=== PATIENT | male | born 1955 | race Caucasian/White ===

== ENCOUNTER 2020-09-17 10:16 | Outpatient (REF) | payer MEDICARE, OTHER, SELFPAY ==
[2020-09-17 12:31] LABS: Anion Gap 15 (12-20); Blood Urea Nitrogen 12 mg/dL (9-16); Carbon Dioxide 27 mmol/L (22-29); Chloride 100 mmol/L (96-108); Cholesterol 135 mg/dL; Estimated Glomerular Filt Rate > 60; Glucose Random 142 mg/dL (60-115); HDL Cholesterol 53 mg/dL; LDL Cholesterol Calculated 69 mg/dl; Potassium 4.8 mmol/l (3.3-5.1); Sodium 137 mmol/L (135-145); Triglycerides 67 mg/dL
[2020-09-17 12:42] LABS: Estimated Average Glucose 177 mg/dL; Hemoglobin A1c % 7.8 %
[2020-09-17 12:44] LABS: Alanine Aminotransferase 17 U/L (0-40); Albumin Level 4.3 g/dL (3.5-5.0); Alkaline Phosphatase 84 U/L (39-117); Aspartate Amino Transferase 15 U/L (5-37); Bilirubin Direct 0.3 mg/dL (0.0-0.5); Bilirubin Total 0.6 mg/dL (0.0-1.0); Cholesterol 133 mg/dL; HDL Cholesterol 53 mg/dL; LDL Cholesterol Calculated 67 mg/dl; Triglycerides 66 mg/dL
[2020-09-17 12:50] LABS: Microalbum/Creatinine Ratio Ur 5.7 ug/mg cr
== END 2020-09-17 10:17 | disposition home or self-care (01) ==
LOC: HO.HMGCLDS 10:16
PROVIDERS: PCP Nurse Practitioner Family; Visit Provider Internal Medicine
DX: E11.9 Type 2 diabetes mellitus without complications (principal); Z95.1 Presence of aortocoronary bypass graft
CPT/HCPCS: 80048; 80061; 80076; 82043; 83036

== ENCOUNTER → 2020-09-29 08:31 | Outpatient (REF) | payer MEDICARE, OTHER, SELFPAY ==
--- NOTE | 2020-09-29 08:30 | CA_ITS ---
Transthoracic Echocardiogram Patient (Last, First, Middle): Bernard Rosenbaum M Gender: Male Date of : 1955 Age: 65 Procedure Date: 09/29/2020 Procedure Type: Transthoracic Echocardiogram Location: OP Height: 180.34 cm Weight: 100.7 kg BSA: 2.20 m2 Heart Rate: bpm BP: 118 / 60 mmHg Personnel Security Specialist: Referring MD: Melvin Johnson MD Apartment Maintenance: Igor Ramírez MD Symptoms: I21.4 NSTEMI Z95.1 S/P COR ART BYPASS GRAFT Study Quality: Fair ECG Rhythm: Sinus Conclusions: - 1. Normal LV systolic and diastolic function with LVEF of 55 60% 2. Normal cardiac valvular Doppler 3. Normal RV systolic pressure 4. No pericardial effusion Findings Left Ventricle Normal left ventricular size and systolic function. There is mildly increased left ventricular wall thickness. The visually estimated ejection fraction is between 55-60%. Regional wall motion abnormalities can not be excluded due to suboptimal endocardial definition. There is paradoxical septal motion consistent with post-operative status. Spectral Doppler is indicative of a normal filling pattern. Right Ventricle Normal right ventricular cavity size. Atria The left atrium is likely dilated. Interatrial shunt cannot be excluded. The right atrium is normal in size. Aortic Valve The aortic valve was not well visualized. There is no aortic valve stenosis. There is no aortic valve regurgitation. Mitral Valve Likely normal mitral valve structure and function. There is trace mitral valve regurgitation. There is no mitral valve stenosis. Pulmonic Valve The pulmonic valve was not well visualized. Tricuspid Valve Likely normal tricuspid valve structure and function. There is trace tricuspid valve regurgitation. The right ventricular systolic pressure is normal. The right ventricular systolic pressure is 15 mmHg. Normal right atrial pressure. There is no evidence of pulmonary hypertension. Great Vessels All visible segments of the aorta are normal in size. The pulmonary artery was not well visualized. Venous The inferior vena cava is normal in size and collapses greater than 50% with inspiration. Pericardium/Pleural There is no evidence of pericardial effusion. Prior Study Comparison No significant change compared to prior study dated: 06/26/2020. Recommendations, Care & Conclusions Recommend contrast in the future to improve endocardial definition. Measurements 2D Linear Measurements IVSd: 1.27 0.6-0.9/0.6-1.0 cm LVIDd: 4.46 3.9-5.3/4.2-5.9 cm LVIDd Index: 2.03 2.4-3.2/2.2-3.1 cm/m2 LVIDs: 2.93 2.0-3.6 cm LVPWd: 1.21 0.7-1.1 cm Ao Root: 3.40 2.1-3.5 cm LA Diam: 3.90 2.7-3.8/3.0-4.0 cm LAIDs Index: 1.77 1.5-2.3 cm/m2 LV Mass: 255.36 67-162/88-224 g LV Mass Index: 116.07 43-95/49-115 g/m2 LVOT Diam: 2.20 3.0+(-)1.3 cm 2D Systolic Function EF 4C: 53.10 >55% EF 2C: 50.10 >55% EF BiP: 51.00 >55% Mitral Valve MV Pk E: 0.69 MV PK A: 0.66 MV Decel Time: 239.00 E/A: 1.00 E'Lateral: 9.57 E'Medial: 6.38 E/E' Med: 10.80 E/E' Lat: 7.20 PHT: 70.00 MVA PHT: 3.14 Decel Guthrie: 2.88 Aortic Valve AoV Pk Zac: 1.06 AoV Mn Zac: 0.71 AoV VTI: 0.31 AoV Pk Grad: 4.00 Aov Mn Grad: 2.00 LIANE Cont.VTI: 2.92 LVOT LVOT Pk Zac: 0.89 LVOT Mn Zac: 0.56 LVOT VTI: 0.24 LVOT Pk Grad: 3.00 LVOT Mn Grad: 2.00 LVOT Diam: 2.20 LVOT Area: 3.80 Diastolic Function MV Pk E: 0.69 MV Pk A: 0.66 E/A: 1.00 E'Medial: 6.38 E/E' Med: 10.80 E' Laterial: 9.57 E/E' Lat: 7.20 Tricuspid Valve TR Pk Zac: 1.76 TR Pk Grad: 12.00 RA Press: 3.00 RVSP: 15.00 Great Vessels Aorta Ao Root-2D: 3.40 2.0-3.7 cm Pulmonary Valve PV Pk Zac: 0.95 Peak PV Grad: 4.00 Updated in Other Vendor System with Status of Final Igor Ramírez MD electronically signed on 09/30/2020 9:40:06 AM with status of Final
== END ==
LOC: HO.CARD 08:31
PROVIDERS: PCP Nurse Practitioner Family; Visit Provider Internal Medicine
DX: I21.4 Non-ST elevation (NSTEMI) myocardial infarction (principal); Z95.1 Presence of aortocoronary bypass graft
CPT/HCPCS: 93306

== ENCOUNTER → 2020-10-12 09:49 | Outpatient (BNVA) | payer MEDICARE, OTHER, SELFPAY | PROVIDERS: PCP Nurse Practitioner Family; Visit Provider Internal Medicine | DX: I25.10 Atherosclerotic heart disease of native coronary artery without angina pectoris (principal); I21.4 Non-ST elevation (NSTEMI) myocardial infarction; I10 Essential (primary) hypertension; E11.8 Type 2 diabetes mellitus with unspecified complications; E78.5 Hyperlipidemia, unspecified; Z95.1 Presence of aortocoronary bypass graft | CPT/HCPCS: 99212 ==

== ENCOUNTER 2021-03-15 10:17 | Outpatient (REF) | payer MEDICARE, OTHER, SELFPAY ==
[2021-03-15 12:10] LABS: Alanine Aminotransferase 17 U/L (0-40); Albumin Level 4.3 g/dL (3.5-5.0); Alkaline Phosphatase 94 U/L (39-117); Anion Gap 15 (12-20); Aspartate Amino Transferase 15 U/L (5-37); Bilirubin Total 0.9 mg/dL (0.0-1.0); Blood Urea Nitrogen 15 mg/dL (9-16); Calcium 9.6 mg/dL (8.4-10.2); Carbon Dioxide 25 mmol/L (22-29); Chloride 103 mmol/L (96-108); Cholesterol 138 mg/dL; Estimated Glomerular Filt Rate > 60; Glucose Fasting 215 mg/dL (60-99); HDL Cholesterol 49 mg/dL; LDL Cholesterol Calculated 76 mg/dl; Sodium 138 mmol/L (135-145); Total Protein 7.1 g/dL (6.5-8.0); Triglycerides 68 mg/dL
[2021-03-15 12:12] LABS: Estimated Average Glucose 266 mg/dL; Hemoglobin A1c % 10.9 %
[2021-03-15 12:25] LABS: TSH reflex Free T4 3.32 uIU/mL (0.32-4.0)
== END 2021-03-15 10:18 | disposition home or self-care (01) ==
LOC: HO.HMGCLDS 10:17
PROVIDERS: PCP Nurse Practitioner Family; Visit Provider Nurse Practitioner Family
DX: E11.8 Type 2 diabetes mellitus with unspecified complications (principal)
CPT/HCPCS: 36415; 80053; 80061; 83036; 84443

== ENCOUNTER → 2021-04-19 09:51 | Outpatient (BNVA) | payer MEDICARE, OTHER, SELFPAY | PROVIDERS: PCP Nurse Practitioner Family; Referring Provider Nurse Practitioner Family; Visit Provider Internal Medicine | DX: I25.10 Atherosclerotic heart disease of native coronary artery without angina pectoris (principal); I21.4 Non-ST elevation (NSTEMI) myocardial infarction; I10 Essential (primary) hypertension; E78.5 Hyperlipidemia, unspecified; E11.8 Type 2 diabetes mellitus with unspecified complications; Z95.1 Presence of aortocoronary bypass graft | CPT/HCPCS: 93005; 99212 ==

== ENCOUNTER 2021-06-15 10:06 | Outpatient (REF) | payer MEDICARE, OTHER, SELFPAY ==
[2021-06-15 11:42] LABS: Estimated Average Glucose 249 mg/dL; Hemoglobin A1c % 10.3 %
[2021-06-15 11:54] LABS: Alanine Aminotransferase 17 U/L (0-40); Albumin Level 4.2 g/dL (3.5-5.0); Alkaline Phosphatase 83 U/L (39-117); Anion Gap 14 (12-20); Aspartate Amino Transferase 13 U/L (5-37); Bilirubin Total 0.9 mg/dL (0.0-1.0); Blood Urea Nitrogen 14 mg/dL (9-16); Calcium 9.3 mg/dL (8.4-10.2); Carbon Dioxide 24 mmol/L (22-29); Chloride 104 mmol/L (96-108); Estimated Glomerular Filt Rate > 60; Glucose Random 217 mg/dL (60-115); Potassium 4.7 mmol/L (3.3-5.1); Sodium 137 mmol/L (135-145); Total Protein 6.6 g/dL (6.5-8.0)
[2021-06-15 12:18] LABS: TSH reflex Free T4 3.01 uIU/mL (0.32-4.0)
== END 2021-06-15 10:07 | disposition home or self-care (01) ==
LOC: HO.HMGCLDS 10:06
PROVIDERS: PCP Nurse Practitioner Family; Visit Provider Nurse Practitioner Family
DX: Z12.5 Encounter for screening for malignant neoplasm of prostate (principal); E03.9 Hypothyroidism, unspecified; E11.9 Type 2 diabetes mellitus without complications
CPT/HCPCS: 36415; 80053; 83036; 84153; 84443

== ENCOUNTER → 2021-10-04 15:03 | Outpatient (BNVA) | payer MEDICARE, OTHER, SELFPAY | PROVIDERS: PCP Nurse Practitioner Family; Referring Provider Nurse Practitioner Family; Visit Provider Internal Medicine | DX: I25.10 Atherosclerotic heart disease of native coronary artery without angina pectoris (principal); I21.4 Non-ST elevation (NSTEMI) myocardial infarction; I10 Essential (primary) hypertension; E78.5 Hyperlipidemia, unspecified; E11.8 Type 2 diabetes mellitus with unspecified complications; Z95.1 Presence of aortocoronary bypass graft | CPT/HCPCS: 99212 ==

== ENCOUNTER 2021-10-19 09:32 | Outpatient (REF) | payer MEDICARE, OTHER, SELFPAY ==
[2021-10-19 11:57] LABS: Appearance Urine CLEAR; Color Urine YELLOW; Glucose Urine UA NEG (NEG); Leukocyte Esterase Urine NEG (NEG); Nitrite Urine NEG (NEG); Specific Gravity - Urine 1.025 (1.005-1.025); Urine Blood NEG (NEG); Urine Ketones NEG (NEG); Urine Protein NEG (NEG-TRACE)
[2021-10-19 12:29] LABS: Squamous Epithelial Cell Urine 2+ /LPF; WBC Urine 0-2 /HPF (0-4)
[2021-10-19 12:30] LABS: Bacteria Urine TRACE /LPF; Mucus Urine 1+ /LPF
== END 2021-10-19 09:33 | disposition home or self-care (01) ==
LOC: HO.HMGCLDS 09:32
PROVIDERS: PCP Nurse Practitioner Family; Visit Provider Nurse Practitioner Family
DX: Z87.442 Personal history of urinary calculi (principal)
CPT/HCPCS: 81001; 87086

== ENCOUNTER 2021-11-11 11:26 | Outpatient (REF) | payer MEDICARE, OTHER, SELFPAY ==
--- NOTE | ~2021-11-11 | US_ITS ---
EXAMINATION: US RETROPERITONEAL LIMITED (RENAL ONLY) CLINICAL INFORMATION: History of kidney stones.. COMPARISON: April 04, 2019 TECHNIQUE: Bilateral renal ultrasound. FINDINGS: RIGHT KIDNEY: 12.0 x 5.6 x 6.6 cm (SAG x AP x TRV). The kidney is normal in size, contour, and echogenicity. Renal cortical thickness is normal. No focal parenchymal masses are identified. Within the lower pole there is a echogenic focus measuring 3 mm in largest dimension representing a nonobstructive calculus. No hydronephrosis. LEFT KIDNEY: 12.2 x 5.9 x 6.9 cm (SAG x AP x TRV). The kidney is normal in size, contour, and echogenicity. Renal cortical thickness is normal. No hydronephrosis. Within the upper pole there is a 1.9 x 1.6 x 1.5 cm cyst. Within the lower pole there is a 3 mm echogenic focus representing a nonobstructive calculus. Within the upper pole there is a 4 mm echogenic focus representing a nonobstructive calculus. US/US renal BI IMPRESSION: Bilateral nephrolithiasis without evidence of hydronephrosis. 1.9 cm left renal cyst..
== END 2021-11-11 11:27 | disposition home or self-care (01) ==
LOC: HO.HMGCX 11:26
PROVIDERS: PCP Nurse Practitioner Family; Visit Provider Nurse Practitioner Family
DX: R10.9 Unspecified abdominal pain (principal); Z87.442 Personal history of urinary calculi
CPT/HCPCS: 76775

== ENCOUNTER 2021-12-14 09:00 | Outpatient (REF) | payer MEDICARE, OTHER, SELFPAY ==
--- NOTE | ~2021-12-14 | US_ITS ---
EXAMINATION: US PELVIS LIMITED (BLADDER) CLINICAL INFORMATION: Personal history of urinary calculi. COMPARISON: Ultrasound renal 11/11/2021. TECHNIQUE: Real-time imaging of the bladder. FINDINGS: BLADDER: Well distended and normal. Bilateral ureteral jets are demonstrated. Prevoid bladder volume is 202 mL. Postvoid bladder volume is 39.1 mL. US/US bladder IMPRESSION: Small postvoid residual bladder volume. Normal bilateral ureteral jets seen.
[2021-12-14 11:53] LABS: Appearance Urine CLEAR; Color Urine YELLOW; Glucose Urine UA 100 MG/DL (NEG); Leukocyte Esterase Urine NEG (NEG); Nitrite Urine NEG (NEG); Urine Blood NEG (NEG); Urine Ketones NEG (NEG); Urine Protein NEG (NEG-TRACE)
[2021-12-14 12:03] LABS: Alanine Aminotransferase 18 U/L (0-40); Albumin Level 4.2 g/dL (3.5-5.0); Alkaline Phosphatase 109 U/L (39-117); Anion Gap 12 (12-20); Aspartate Amino Transferase 14 U/L (5-37); Blood Urea Nitrogen 12 mg/dL (9-16); Calcium 9.7 mg/dL (8.4-10.2); Carbon Dioxide 31 mmol/L (22-29); Chloride 99 mmol/L (96-108); Cholesterol 122 mg/dL; Estimated Glomerular Filt Rate > 60; Glucose Fasting 271 mg/dL (60-99); HDL Cholesterol 46 mg/dL; LDL Cholesterol Calculated 65 mg/dl; Potassium 5.1 mmol/L (3.3-5.1); Sodium 137 mmol/L (135-145); Total Protein 6.9 g/dL (6.5-8.0); Triglycerides 58 mg/dL
[2021-12-14 12:26] LABS: TSH reflex Free T4 3.33 uIU/mL (0.32-4.0)
== END 2021-12-14 09:01 | disposition home or self-care (01) ==
LOC: HO.HMGCX 09:00
PROVIDERS: PCP Nurse Practitioner Family; Visit Provider Nurse Practitioner Family
DX: R10.9 Unspecified abdominal pain (principal); E11.8 Type 2 diabetes mellitus with unspecified complications; I10 Essential (primary) hypertension; Z87.442 Personal history of urinary calculi
CPT/HCPCS: 36415; 76857; 80053; 80061; 81003; 84443

== ENCOUNTER → 2022-02-21 13:31 | Outpatient (BNVA) | payer MEDICARE, OTHER, SELFPAY | PROVIDERS: PCP Nurse Practitioner Family | DX: N28.1 Cyst of kidney, acquired (principal) | CPT/HCPCS: 99202 ==

== ENCOUNTER 2022-06-20 07:56 | Outpatient (REF) | payer MEDICARE, OTHER, SELFPAY ==
--- NOTE | ~2022-06-20 | US_ITS ---
EXAMINATION: US RETROPERITONEAL LIMITED (RENAL ONLY) CLINICAL INFORMATION: Cyst of kidney, acquired. COMPARISON: US pelvis limited (bladder) 12/14/2021. US retroperitoneal limited (renal only) 11/11/2021. CT abdomen and pelvis 04/04/2019. TECHNIQUE: Real-time imaging of the kidneys. FINDINGS: RIGHT KIDNEY: 11.1 x 5.6 x 5.6 cm (SAG x AP x TRV). The kidney is normal in size, contour, and echogenicity. Renal cortical thickness is normal. No focal parenchymal lesions or hydronephrosis. There is an echogenic nonobstructive stone in lower pole measuring 0.3 and 0.4 cm. LEFT KIDNEY: 11.1 x 6.0 x 5.2 cm (SAG x AP x TRV). The kidney is normal in size, contour, and echogenicity. Renal cortical thickness is normal. No hydronephrosis. There is anechoic cyst in the upper pole measuring 2.2 x 2.1 x 1.9 cm. There is a nonobstructive echogenic stone midpole measuring 0.4 cm and a lower pole measuring 0.5 cm and 0.4 cm. US/US renal BI IMPRESSION: Bilateral nonobstructive echogenic renal calculi. No hydronephrosis. Anechoic cyst upper pole measuring 2.2 cm.
== END 2022-06-20 07:57 | disposition home or self-care (01) ==
LOC: HO.US 07:56
DX: N28.1 Cyst of kidney, acquired (principal)
CPT/HCPCS: 76775

== ENCOUNTER 2022-07-29 14:58 | Observation (INO) | payer MEDICARE, OTHER, SELFPAY ==
--- NOTE | ~2022-07-29 | CT_ITS ---
EXAMINATION: CT HEAD WITHOUT CONTRAST CLINICAL INFORMATION: Headache. COMPARISON: None. TECHNIQUE: Contiguous axial imaging was performed from the skull base to vertex without intravenous administration of contrast. Coronal and sagittal reformatted images are performed at the CT scanner. [This CT examination was performed using dose optimization techniques as appropriate, variously including the following: *Automated exposure control *Adjustment of mA and/or kV according to patient size (this includes techniques or standardized protocols for targeted exams where dose is matched to indication/reason for exam; i.e. extremities or head) *Use of iterative reconstruction technique] DLP: 771 mGy-cm. FINDINGS: There is no evidence of acute intracranial hemorrhage or territorial infarction. No abnormal mass-effect or midline shift is seen. Merchant to white matter differentiation is well preserved. No extra-axial fluid collections are identified. There is generalized global volume loss. There is mild prominence of the ventricles and the sulci . There are vascular calcifications of the internal carotid arteries bilaterally. There is no osseous abnormality. The mastoid air cells and visualized portions of the paranasal sinuses are well-aerated. CT/CT head/brain wo IV con IMPRESSION: No acute intracranial pathology.
--- NOTE | ~2022-07-29 | MR_ITS ---
EXAMINATION: MR BRAIN WITHOUT CONTRAST CLINICAL INFORMATION: CVA COMPARISON: CTA head and neck 07/29/2022 TECHNIQUE: Multiplanar multisequence MR imaging of the brain was obtained without intravenous contrast. FINDINGS: There is no acute infarct on diffusion-weighted imaging. No extra-axial collection or mass effect/herniation. Patchy periventricular and deep white matter T2 FLAIR hyperintensities consistent with mild to moderate underlying microangiopathy. Chronic right basal ganglia and right cerebellar lacunar infarcts which demonstrate small chronic blood products. No other intracranial blood products on iron sensitive imaging No hydrocephalus. Mild generalized cerebral volume loss with commensurate sulcal and ventricular prominence. Slightly attenuated intradural left vertebral artery flow-void. The major flow voids at the skull base are otherwise preserved. The midline structures are normal. The cerebellar tonsils are normally positioned. The craniocervical junction is normal. Marrow signal is within normal limits. The visualized soft tissues are without significant abnormality. No signal abnormality within the paranasal sinuses or within the mastoid air cells. MR/MR head/brain wo con IMPRESSION: No acute infarct or other acute intracranial abnormality.
--- NOTE | ~2022-07-29 | CT_ITS ---
EXAMINATION: CT ANGIOGRAM HEAD CT ANGIOGRAM NECK CLINICAL INFORMATION: Reason for Exam left sided facial droop COMPARISON: Same day noncontrast head CT TECHNIQUE: Initial noncontrast supervisor enrobing imaging of the head and neck was performed. Comparison is made with noncontrast head CT from earlier today. Test bolus sequences followed by intravenous administration 70 mL of Omnipaque 350. Helical imaging was performed in the axial plane from the aortic arch to the skull vertex. Delayed postcontrast imaging of the head was also performed. The data was processed at the pathology laboratory technologist's workstation for generation of MIP sequences. Angled MIPs and volume rendered reformatted images were also generated at an offline 3D workstation. Stenoses are assessed in accordance with NASCET criteria unless otherwise indicated. DLP: 1584 mGy-cm This CT examination was performed using dose optimization techniques as appropriate, variously including the following: *Automated exposure control. *Adjustment of mA and/or kV according to patient size (this includes techniques or standardized protocols for targeted exams where dose is matched to indication/reason for exam; i.e. extremities or head). *Use of iterative reconstruction technique. FINDINGS: CT Head: There is no evidence of acute intracranial hemorrhage or edematous territorial infarction. A few foci of hypoattenuation in the periventricular and deep white matter are consistent with mild microangiopathy. Chronic lacunar infarcts in the right lentiform nucleus and right cerebellum. Merchant-white matter differentiation is preserved. The ventricles are normal in size and configuration. No evidence for obstructive hydrocephalus. No abnormal mass effect or midline shift. No extra-axial fluid collections. Prominent bifrontal extra-axial spaces. No pathologic intra-axial enhancement or regional oligemia. No acute soft tissue or osseous abnormalities. The mastoid air cells and paranasal sinuses are clear. CT Neck: The thyroid gland and remaining cervical soft tissues are within normal limits. Multilevel cervical spondylosis. CT Upper Chest: The visualized lung apices and upper mediastinum are within normal limits. Median sternotomy wires. Neck CTA: Aortic Arch: Normal contour and caliber. Classic 3 vessel branching pattern of the aortic arch. Great Vessel Origins: No significant stenosis of the branch origins. Right Common Carotid Artery: No focal stenosis or occlusion. Cervical Right Internal Carotid Artery: Calcific atherosclerotic disease of the carotid bulb and proximal internal carotid artery causing less than 50% stenosis. Left Common Carotid Artery: No focal stenosis or occlusion. Cervical Left Internal Carotid Artery: Calcific atherosclerotic disease of the carotid bulb and proximal internal carotid artery causing less than 50% stenosis. There is moderate to severe burden of predominantly soft atherosclerotic plaque involving the distal cervical left ICA with approximately 70% stenosis at the junction of the cervical and petrous segments. Cervical Right Vertebral Artery: No focal stenosis or occlusion. Cervical Left Vertebral Artery: Moderate calcified atherosclerotic disease of the proximal intradural left without high-grade stenosis and absent opacification of the vessel just distal to a normal appearing left PICA takeoff. Brain CTA: Intracranial Internal Carotid Arteries: Calcific atherosclerotic disease of the intracranial internal carotid arteries without occlusion or flow-limiting stenosis. Right Anterior Cerebral Artery: Normal A1 segment. Normal opacification of the distal CARLOS segments. Left Anterior Cerebral Artery: Normal A1 segment. Normal opacification of the distal CARLOS segments. Anterior Communicating Artery: Normal. Right Middle Cerebral Artery: Normal M1 segment of the MCA without focal stenosis or occlusion. Normal arborization of the distal segments. Left Middle Cerebral Artery: Normal M1 segment of the MCA without focal stenosis or occlusion. Normal arborization of the distal segments. Right Vertebral Artery: Normal V4 segment. Left Vertebral Artery: Normal V4 segment. Basilar Artery: Normal without focal stenosis or occlusion. Normal appearance of the proximal superior cerebellar arteries. Right Posterior Cerebral Artery: Normal P1 segment. Normal opacification of the distal [employer] segments. Left Posterior Cerebral Artery: Normal P1 segment. Normal opacification of the distal [employer] segments. Normal opacification of the superior sagittal, straight, transverse, and sigmoid sinuses. CT/CT angio head neck IMPRESSION: 1. Age-indeterminate occlusion of the intradural left vertebral artery just distal to the left PICA takeoff. There is robust supply of the basilar artery and posterior circulation via a widely patent right vertebral artery. 2. Moderate to severe burden of lipid rich atherosclerotic plaque involving the distal cervical left ICA with approximately 70% stenosis of the vessel origin at the junction of the cervical and petrous segments.
[2022-07-29 15:01] VITALS: BP 178/92; PULSE 96; RESP 18; TEMP 37.2; O2SAT 98; BMI 31.8
--- NOTE | 2022-07-29 15:21 | ECG_ITS ---
Test Reason : NEURO SYMTOMS Blood Pressure : / mmHG Vent. Rate : 094 BPM Atrial Rate : 094 BPM P-R Int : 150 ms QRS Dur : 076 ms QT Int : 350 ms P-R-T Axes : 068 -31 091 degrees QTc Int : 437 ms Normal sinus rhythm Left axis deviation Nonspecific ST and T wave abnormality Abnormal ECG When compared with ECG of 16-JUN-2020 10:56, T wave inversion no longer evident in Anterolateral leads QT has shortened Referred By: Estela Zelaya Electronically Signed By:CISCO CRAIG
--- NOTE | 2022-07-29 15:29 | ED.NEUROSD ---
HPI - Neuro Symptoms/Deficit General Chief Complaint: Neuro Symptoms/Deficit Stated Complaint: L side facial weakness sent by urgent care Time Seen by Provider: 07/29/22 15:17 Source: patient Mode of arrival: ambulatory Limitations: no limitations History of Present Illness HPI Narrative: Patient is a 67 year old male presenting to the emergency department today with left sided head and neck pressure and possible left facial droop. Patient states that over the last week he has had left sided head and neck pressure and today when he was seen at the urgent care, the provider there was concerned about a stroke or bells palsy. Patient states that he was bit by a tick a year ago and was never tested or treated for Lyme. Patient states that he didn't notice any facial drooping but he did feel like spitting after brushing his teeth was much more difficult than usual. Patient denies any dizziness, lightheadedness, abdominal pain, nausea, vomiting, fever, chills, blurry vision, double vision, loss of vision, chest pain, difficulty breathing, shortness of breath, back pain, night sweats, pain with urination, increased urinary frequency, increased urinary urgency, blood in his urine or stool, syncope or a near syncopal episode, recent trauma or falls, bowel incontinence, bladder incontinence, bowel retention, bladder retention, or any other complaints at this time. Onset (ago): week(s) (1) Location: left face History of same: No Severity: mild Relieving factors: none Exacerbating factors: none Context: gradual onset On Anticoagulants: No Associated symptoms: denies other symptoms Treatments Prior to Arrival: none Related Data Home Medications Medication Instructions Recorded Confirmed aspirin 81 mg tablet,delayed 81 mg PO .COMPLEX 11/18/20 02/01/22 release nitroglycerin 0.4 mg sublingual mg sublingual PRN chest pain 11/18/20 02/01/22 tablet insulin aspart U-100 100 unit/mL subcut 02/21/22 (3 mL) subcutaneous pen (Novolog Flexpen U-100 Insulin aspart) Previous Rx's Medication Instructions Recorded blood sugar diagnostic (FreeStyle 1 strip miscellaneous BID for 03/18/21 Lite Strips) diabetes mellitus 30 days #60 strips flash glucose scanning reader #1 ea 09/15/21 (FreeStyle Ash 14 Day Delton) flash glucose sensor (FreeStyle #1 ea 09/15/21 Ash 14 Day Sensor kit) atorvastatin 80 mg tablet 80 mg PO DAILY 90 days #90 tabs 10/25/21 metoprolol tartrate 50 mg tablet 50 mg PO BID #180 tabs 11/01/21 pen needle, diabetic 31 gauge x #100 ea 01/01/22 3/16 insulin degludec 200 unit/mL (3 24 unit (0.12 mL) subcut BID 30 01/19/22 mL) subcutaneous pen (Tresi days #7.2 mL FlexTouch U-200 insulin) lisinopril 5 mg tablet 5 mg PO DAILY 90 days #90 tabs 02/11/22 levothyroxine 75 mcg tablet 75 mcg PO DAILY #90 tabs 04/12/22 doxycycline hyclate 100 mg tablet 100 mg PO BID 21 days #42 tabs 07/29/22 prednisone 20 mg tablet 20 mg PO DAILY 12 days #26 tabs 07/29/22 Allergies Allergy/AdvReac Type Severity Reaction Status Date / Time Penicillins [PCN] Allergy Unknown RASH Verified 06/20/22 13:13 glipizide AdvReac Unknown Nausea/Loss Verified 06/20/22 13:13 of appetite metformin AdvReac Unknown GI upset Verified 06/20/22 13:13 Review of Systems Constitutional: Constitutional: Reports no additional constitutional complaints, Denies chills, Denies fever(s) and Denies night sweats Eyes: Eyes: Reports no additional eye complaints, Denies blurry vision, Denies change in vision, Denies diplopia, Denies eye discharge, Denies loss of vision and Denies eye pain ENT: Denies dizziness Cardiovascular: Cardiovascular: Reports no additional cardiovascular complaints, Denies chest pain, Denies lightheadedness, Denies Loss of Consciousness and Denies dyspnea Respiratory: Respiratory: Reports no additional respiratory complaints and Denies dyspnea Gastrointestinal: Gastrointestinal: Reports no additional gastrointestinal complaints, Denies abdominal pain, Denies melena, Denies hematochezia, Denies change in bowel habits and Denies change in stool character Genitourinary: Genitourinary: Reports no additional male genitourinary complaints, Denies hematuria, Denies oliguria, Denies difficulty urinating, Denies dysuria, Denies urinary frequency, Denies urinary hesitancy, Denies urinary incontinence and Denies urinary urgency Musculoskeletal: Musculoskeletal: Reports no additional musculoskeletal complaints, Denies numbness and Denies tingling Neurologic: Denies dizziness, Denies loss of vision, Denies numbness and Denies tingling Comments: left sided head pressure and neck pressure, difficulty spitting Psychiatric: Psychiatric: Reports no additional psychiatric complaints Endocrine: Endocrine: Reports no additional endocrine complaints Hematologic/Lymphatic: Hematologic/Lymphatic: Reports no additional hematologic/lymphatic complaints Allergic/Immunologic: Allergic/Immunologic: Reports no additional allergic/immunologic complaints PMFSH Past Medical History Attestation statement: The following information was validated with the patient. Source: old records reviewed Medical History Adult hypothyroidism Atherosclerotic cardiovascular disease Basal cell carcinoma HTN (hypertension) Non-ST elevation OR (NSTEMI) Other and unspecified hyperlipidemia Type 2 diabetes mellitus with unspecified complications Surgical History History of cardiac catheterization (~06/17/20) S/P CABG x 4 (~06/30/20) Family History Family History Father Stroke Substance use disorder Mother Breast cancer HTN (hypertension) Social History Social History Housing: House Patient Tobacco Use Status: Never used Tobacco e-Cigarette/Vaping Use: Never Used Advance Directives: No Advance Directives Information Provided: No service: No Current occupational status: retired Cognitive needs: No Hearing needs: No Vision needs: No Physical Exam Vital Signs: Vital Signs: Last Vital Signs Temp 97.8 F 07/29/22 19:26 Pulse 83 07/29/22 19:26 Resp 17 07/29/22 19:26 BP 174/94 H 07/29/22 19:26 Pulse Ox 98 07/29/22 19:26 O2 Del Method 07/29/22 19:26 BMI result Body Mass Index 31.8 Const: General: cooperative, no acute distress, alert and awake Nutritional Appearance: well nourished Orientation/consciousness: patient oriented x3 Limitations: no limitations HEENT: Head: Yes normal to inspection and Yes atraumatic Ears: hearing grossly normal bilaterally and external ears normal General nose exam: Normal external nose present, no nasal discharge noted and no epistaxis Face and sinus: Yes normal facial exam, No abrasion and No laceration Mouth: Normal oral and palatal mucosa present, no drooling and no muffled voice Eyes: General: appearance normal, both eyes and all related structures Periorbital: periorbital findings normal Eyelids: Yes eyelids normal Conjunctivae: conjunctivae normal Pupils: Equal, round and reactive pupils present EOM: EOMs intact bilaterally Neck: Neck: Yes normal visual inspection, Yes full ROM and Yes no lymphadenopathy Chest: Chest palpation & inspection: normal inspection of the chest Resp: Effort & Inspection: normal respiratory effort and able to speak in complete sentences Auscultation: clear to auscultation bilaterally Cardio: Rate: regular rate Rhythm: regular rhythm GI: Inspection: Yes normal to inspection Neuro: General: patient oriented x3 and moves all extremities Cranial nerves: Yes Equal, round and reactive pupils present Cognition (Neuro): normal cognition Motor exam (neuro): 5/5 motor strength present throughout Sensory Exam: Normal double simultaneous stimulation for sensation Coordination: [id number] test normal Extrem: General: Yes normal to inspection, Yes full ROM and Yes capillary refill normal Psych: Appearance: grossly normal Mental Status: mental status grossly normal Affect: normal affect Attitude: cooperative Thought process: Normal thought process present Thought content: Normal thought content present Insight: Good insight present (Psych) MDM - Neuro Symptoms/Deficit MDM Narrative Medical decision making narrative: Patient is a 67 year old male presenting to the emergency department today with left sided facial sided face and neck pressure with difficulty spitting secondary to a change in sensation of the left side of the lips. Patient's physical exam was unremarkable, including a normal neurological exam. Patient's blood work was unremarkable. Patient's EKG was unremarkable. Patient's head CT showed no acute process. Patient's head CTA is pending as well as his lyme testing. I believe the patient's clinical presentation at this time, is most consistent with a mild bells palsy primary effecting the left side of the face. Lyme disease also remains on the differential. I explained my physical exam findings as well as all test results to the patient. I answered all questions asked by the patient. I stressed the importance of the patient taking his medication as prescribed. I stressed the importance of the patient following up with his primary care provider and a neurologist. I stressed the importance of the patient returning to the emergency department immediately if his symptoms were to worsen or if he were to develop any dizziness, shortness of breath, difficulty breathing, chest pain, blurry vision, loss of vision, nausea, vomiting, abdominal pain, fever, chills, back pain, or any other complaints. Patient's dispostion is pending CTA result. Medical Records Attestation: I reviewed the patient's medical records. Lab Data Attestation: I reviewed the patient's lab results. Result diagrams: 07/29/22 15:38 07/29/22 15:38 Labs: Lab Results 07/29/22 07/29/22 07/29/22 Range/Units 15:38 15:38 15:38 WBC 9.3 (4.8-10.8) X10*3/uL RBC 5.28 (4.60-5.80) X10*6/uL Hgb 16.0 (14.0-18.0) g/dl Hct 48.2 (42.0-52.0) % MCV 91.3 (80.0-98.0) fL MCH 30.3 (27.0-33.0) pg MCHC 33.2 (31.0-36.0) g/dl RDW 13.1 (11.0-16.0) % Plt Count 291 (160-400) X10*3/uL MPV 10.2 (9.4-12.4) fL Immature Gran % (Auto) 0.4 (0.0-0.4) % Neut % (Auto) 59.5 (45-73) % Lymph % (Auto) 29.4 (20-40) % Kenedy % (Auto) 7.8 (2-11) % Eos % (Auto) 2.4 (0-4) % Baso % (Auto) 0.5 (0-2) % Lymph # (Auto) 2.7 (1.2-4.9) X10*3/uL Kenedy # (Auto) 0.7 (0.1-1.2) X10*3/uL Eos # (Auto) 0.2 (0.0-0.4) X10*3/uL Baso # (Auto) 0.1 (0.0-0.2) X10*3/uL Abs Immat Gran (auto) 0.04 H (0.00-0.03) X10*3/uL Absolute Neuts (auto) 5.5 (2.0-8.3) x10*3/uL Absolute Nucleated RBC 0.000 (0.0-0.012) X10*3/uL Nucleated RBC % (auto) 0.0 (0.0-0.2) /100WBC ESR 2 (0-15) MM/HR Sodium 137 (135-145) mmol/L Potassium 4.8 (3.3-5.1) mmol/L Chloride 104 (96-108) mmol/L Carbon Dioxide 22 (22-29) mmol/L Anion Gap 16 (12-20) BUN 20 H D (9-16) mg/dL Creatinine 1.17 (0.5-1.4) mg/dL Estim Creat Clear Calc 72.9 Estimated GFR > 60 Random Glucose 198 H (60-115) mg/dL Calcium 9.1 D (8.4-10.2) mg/dL Magnesium 2.0 (1.6-2.6) mg/dL Total Bilirubin 0.6 (0.0-1.0) mg/dL Direct Bilirubin 0.3 (0.0-0.5) mg/dL AST 17 (5-37) U/L ALT 17 (0-40) U/L Alkaline Phosphatase 81 D (39-117) U/L Total Protein 6.6 (6.5-8.0) g/dL Albumin 4.1 (3.5-5.0) g/dL COVID-19 ([facility]) (Negative) COVID-19 Clin Com 07/29/22 Range/Units 18:36 WBC (4.8-10.8) X10*3/uL RBC (4.60-5.80) X10*6/uL Hgb (14.0-18.0) g/dl Hct (42.0-52.0) % MCV (80.0-98.0) fL MCH (27.0-33.0) pg MCHC (31.0-36.0) g/dl RDW (11.0-16.0) % Plt Count (160-400) X10*3/uL MPV (9.4-12.4) fL Immature Gran % (Auto) (0.0-0.4) % Neut % (Auto) (45-73) % Lymph % (Auto) (20-40) % Kenedy % (Auto) (2-11) % Eos % (Auto) (0-4) % Baso % (Auto) (0-2) % Lymph # (Auto) (1.2-4.9) X10*3/uL Kenedy # (Auto) (0.1-1.2) X10*3/uL Eos # (Auto) (0.0-0.4) X10*3/uL Baso # (Auto) (0.0-0.2) X10*3/uL Abs Immat Gran (auto) (0.00-0.03) X10*3/uL Absolute Neuts (auto) (2.0-8.3) x10*3/uL Absolute Nucleated RBC (0.0-0.012) X10*3/uL Nucleated RBC % (auto) (0.0-0.2) /100WBC ESR (0-15) MM/HR Sodium (135-145) mmol/L Potassium (3.3-5.1) mmol/L Chloride (96-108) mmol/L Carbon Dioxide (22-29) mmol/L Anion Gap (12-20) BUN (9-16) mg/dL Creatinine (0.5-1.4) mg/dL Estim Creat Clear Calc Estimated GFR Random Glucose (60-115) mg/dL Calcium (8.4-10.2) mg/dL Magnesium (1.6-2.6) mg/dL Total Bilirubin (0.0-1.0) mg/dL Direct Bilirubin (0.0-0.5) mg/dL AST (5-37) U/L ALT (0-40) U/L Alkaline Phosphatase (39-117) U/L Total Protein (6.5-8.0) g/dL Albumin (3.5-5.0) g/dL COVID-19 ([facility]) Negative (Negative) COVID-19 Clin Com See Note Imaging Data CT scan - head: Attestation: I personally reviewed and interpreted this imaging study as follows: My impression: No acute process. Radiologist's impression: EXAMINATION: CT HEAD WITHOUT CONTRAST CLINICAL INFORMATION: Headache. COMPARISON: None. TECHNIQUE: Contiguous axial imaging was performed from the skull base to vertex without intravenous administration of contrast. Coronal and sagittal reformatted images are performed at the CT scanner. [This CT examination was performed using dose optimization techniques as appropriate, variously including the following: *Automated exposure control *Adjustment of mA and/or kV according to patient size (this includes techniques or standardized protocols for targeted exams where dose is matched to indication/reason for exam; i.e. extremities or head) *Use of iterative reconstruction technique] DLP: 771 mGy-cm. FINDINGS: There is no evidence of acute intracranial hemorrhage or territorial infarction. No abnormal mass-effect or midline shift is seen. Merchant to white matter differentiation is well preserved. No extra-axial fluid collections are identified. There is generalized global volume loss. There is mild prominence of the ventricles and the sulci .? There are vascular calcifications of the internal carotid arteries bilaterally. There is no osseous abnormality. The mastoid air cells and visualized portions of the paranasal sinuses are well-aerated. CT/CT head/brain wo IV con IMPRESSION: No acute intracranial pathology. Dictated By: Garrison Hutchinson MD Signed By: Electronically signed by Garrison Hutchinson MD 07/29/22 4031 ECG Data Attestation: I personally reviewed and interpreted this ECG as follows: ECG interpretation date: 07/29/22 ECG interpretation time: 15:34 Prior ECG tracings: available for review Interpretation: Vent. Rate: 094 BPM ? ? Atrial Rate: 094 BPM P-R Int: 150 ms? QRS Dur: 076 ms QT Int: 350 ms ? ? ? P-R-T Axes: 068 -31 091 degrees QTc Int: 437 ms ? Normal sinus rhythm Left axis deviation Nonspecific ST and T wave abnormality Abnormal ECG When compared with ECG of 16-JUN-2020 10:56, Criteria for Inferior infarct are no longer Present T wave inversion no longer evident in Anterolateral leads QT has shortened DD/ 1534 Discharge Plan Discharge Clinical Impression: Paresthesia Patient Disposition: Still a Patient Instructions: Paresthesia (ED) Additional Instructions: Follow up with your primary care provider and a neurologist. Return to the emergency department immediately if your symptoms worsen or if you develop any dizziness, shortness of breath, difficulty breathing, chest pain, blurry vision, loss of vision, nausea, vomiting, abdominal pain, fever, chills, back pain, or any other complaints. Prescriptions: New prednisone 20 mg tablet 20 mg PO DAILY 12 Days Qty: 26 0RF Rx Instructions: Take 3 tablets for 5 days THEN; Take 2 tablets for 4 days THEN; Take 1 tablet for 3 days doxycycline hyclate 100 mg tablet 100 mg PO BID 21 Days Qty: 42 0RF No Action FreeStyle Lite Strips Strip 1 strip miscellaneous BID 30 Days Qty: 60 11RF atorvastatin 80 mg tablet 80 mg PO DAILY 90 Days Qty: 90 4RF Rx Instructions: At bedtime metoprolol tartrate 50 mg tablet 50 mg PO BID Qty: 180 3RF (DME) pen needle, diabetic 31 gauge x 3/16 needle See Rx Instructions subcut .MEDSUPPLY Qty: 100 2RF Rx Instructions: BID with tresiba Tresiba FlexTouch U-200 200 unit/mL (3 mL) insulin pen 24 unit subcut BID 30 Days Qty: 7.2 2RF lisinopril 5 mg tablet 5 mg PO DAILY 90 Days Qty: 90 2RF levothyroxine 75 mcg tablet 75 mcg PO DAILY Qty: 90 0RF (DME) FreeStyle Ash 14 Day Delton Misc See Rx Instructions .Route Qty: 1 6RF Rx Instructions: As directed (DME) FreeStyle Ash 14 Day Sensor Kit See Rx Instructions .Route Qty: 1 8RF Rx Instructions: As directed aspirin 81 mg tablet,delayed release (DR/EC) 81 mg PO .COMPLEX Rx Instructions: 81 mg PO every other day; nitroglycerin 0.4 mg tablet, sublingual sublingual PRN (Reason: chest pain) insulin aspart U-100 [Novolog Flexpen U-100 Insulin] 100 unit/mL (3 mL) insulin pen subcut [place] [facility] [place] Group] (Call to establish and follow up with a neurologist. ) Cash Milan, [facility] NURSE-BC [Primary Care Provider] - Print Language: Zambian
[2022-07-29 15:55] LABS: MANUAL DIFF FLAG NO
[2022-07-29 15:56] LABS: Basophils Absolute Auto 0.1 X10*3/uL (0.0-0.2); Basophils Percent Auto 0.5 % (0-2); Eosinophils Absolute Auto 0.2 X10*3/uL (0.0-0.4); Eosinophils Percent Auto 2.4 % (0-4); Hematocrit 48.2 % (42.0-52.0); Imm Gran Abs Auto 0.04 X10*3/uL (0.00-0.03); Imm Gran Pct Auto 0.4 % (0.0-0.4); Lymphocytes Absolute Auto 2.7 X10*3/uL (1.2-4.9); Lymphocytes Percent Auto 29.4 % (20-40); Mean Corpuscular HGB Conc 33.2 g/dl (31.0-36.0); Mean Corpuscular Hemoglobin 30.3 pg (27.0-33.0); Mean Corpuscular Volume 91.3 fL (80.0-98.0); Mean Platelet Volume 10.2 fL (9.4-12.4); Monocytes Absolute Auto 0.7 X10*3/uL (0.1-1.2); Monocytes Percent Auto 7.8 % (2-11); Neutrophils Absolute Auto 5.5 x10*3/uL (2.0-8.3); Neutrophils Percent Auto 59.5 % (45-73); Platelet Count 291 X10*3/uL (160-400); Red Blood Count 5.28 X10*6/uL (4.60-5.80); Red Cell Distribution Width 13.1 % (11.0-16.0); White Blood Count 9.3 X10*3/uL (4.8-10.8)
[2022-07-29 16:12] LABS: Alanine Aminotransferase 17 U/L (0-40); Albumin Level 4.1 g/dL (3.5-5.0); Alkaline Phosphatase 81 U/L (39-117); Anion Gap 16 (12-20); Aspartate Amino Transferase 17 U/L (5-37); Bilirubin Direct 0.3 mg/dL (0.0-0.5); Bilirubin Total 0.6 mg/dL (0.0-1.0); Blood Urea Nitrogen 20 mg/dL (9-16); Calcium 9.1 mg/dL (8.4-10.2); Carbon Dioxide 22 mmol/L (22-29); Chloride 104 mmol/L (96-108); Creatinine Clr Calc Pharmacy 72.9; Estimated Glomerular Filt Rate > 60; Glucose Random 198 mg/dL (60-115); Potassium 4.8 mmol/L (3.3-5.1); Sodium 137 mmol/L (135-145); Total Protein 6.6 g/dL (6.5-8.0)
[2022-07-29 16:27] VITALS: BP 184/88; PULSE 87; RESP 18; O2SAT 98
[2022-07-29] MEDS: 0.9 % Sodium Chloride 500 ML IV (16:32)
[2022-07-29 17:00] LABS: Erythrocyte Sedimentation Rate 2 MM/HR (0-15)
[2022-07-29] MEDS: iohexoL 350 MG/ML 100 ML INFUS..BTL IV (17:23)
[2022-07-29 18:41] VITALS: BP 179/94; PULSE 85; RESP 18; O2SAT 98
[2022-07-29 19:07] LABS: COVID-19 Test Negative (Negative); IDNOW Serial# 16C4AD1C
[2022-07-29 19:26] VITALS: BP 174/94; PULSE 83; RESP 17; TEMP 36.6; O2SAT 98
--- NOTE | 2022-07-29 20:23 | PHA.MEDREC ---
Pharmacy Consult ? Medication Reconciliation Pharmacy has completed the medication reconciliation. Pt confirmed that he takes 1/2 tab of levothyroxine 75 mcg and lipitor every other day
--- NOTE | 2022-07-29 20:59 | P.HPHOSP_ITS ---
History of Present Illness Date of Service: 07/29/22 Chief Complaint: neck, and ear pain 67-year-old male with past medical history of diabetes, HTN, CAD status post NSTEMI, HLD, hypothyroidism, presents to the hospital with complaints of left neck, year, and head pain. Patient reports that he has had the symptoms for about 1 week now, the pain is intermittent, lasting few minutes, resolving spontaneously. He reports that today his noticed that he is got swelling in his left cheek, and because of the persistent pain in his ear he decided to go to Urgent Care. In Urgent Care patient was asked to come to the ED because they could not rule out CVA as the cause of his complaints. There is evidence of facial droop on the left, when asked the patient about it he reports that he did not notice it and he does not know how long this been there before. He reports that he has had difficulty spinning but no difficulty with swallowing. He has had no change in his vision, and reports intermittent headache. In regards to the neck pain, he reports that the neck pain is on the left, shooting stabbing pain, radiating to the ER, as well as left temporal head. He reports no difficulty or change in his speech. No numbness tingling or weakness in his arms or legs. He has had no similar symptoms in the past. He reports 1 episode of ringing in the ear that occurred a day prior to presentation. Reports no drainage From his ear and no change in his hearing. He denies any chest pain, no palpitations, no abdominal pain nausea or vomiting, no diarrhea constipation, no urinary symptoms and no lower extremity on arrival to the ED patient hemodynamically stable with no significant abnormal vitals except for an elevated blood pressure of 184/88 labs are unremarkable. Head CT shows no acute abnormality, Head and neck CT angiogram shows age indeterminate occlusion of the intradural left vertebral artery just distal to the left PICA takeoff. there is robust supply of the basilar artery and posterior circulation via widely patent right vertebral artery. Moderate to severe burden of lipid rich arthrosclerotic plaque involving the distal cervical left ICA with approximately 70% stenosis of the vessel. Patient will be admitted for further management Review of Systems Review of Systems: Yes all other systems are reviewed and are negative [facility] Medical History Adult hypothyroidism Atherosclerotic cardiovascular disease Basal cell carcinoma HTN (hypertension) Non-ST elevation CT (NSTEMI) Other and unspecified hyperlipidemia Type 2 diabetes mellitus with unspecified complications Family History Father Stroke Substance use disorder Mother Breast cancer HTN (hypertension) Surgical History History of cardiac catheterization (~06/17/20) S/P CABG x 4 (~06/30/20) Social History Housing: House Patient Tobacco Use Status: Never used Tobacco e-Cigarette/Vaping Use: Never Used Advance Directives: No Advance Directives Information Provided: No service: No Current occupational status: retired Cognitive needs: No Hearing needs: No Vision needs: No Meds Allergies Allergy/AdvReac Type Severity Reaction Status Date / Time Penicillins [PCN] Allergy Unknown RASH Verified 06/20/22 13:13 glipizide AdvReac Unknown Nausea/Loss Verified 06/20/22 13:13 of appetite metformin AdvReac Unknown GI upset Verified 06/20/22 13:13 Active Medications: Current Medications Pharmacy Consult (Consult Rx Perform Med Rec) 1 each MISCELLANE ONCE PRN PRN Reason: Consult order Home Medications Medication Instructions Recorded Confirmed Last Taken Type aspirin 81 mg tablet,delayed 81 mg PO Q2D 11/18/20 07/29/22 07/01/22 History release nitroglycerin 0.4 mg sublingual 0.4 mg sublingual Q5M PRN chest 11/18/20 07/29/22 Unknown History tablet pain insulin aspart U-100 100 unit/mL See Protocol subcut TIDAC 02/21/22 07/29/22 07/29/22 History (3 mL) subcutaneous pen (Novolog Flexpen U-100 Insulin aspart) atorvastatin 80 mg tablet 80 mg PO Q2D@2100 07/29/22 07/29/22 07/28/22 History insulin degludec 200 unit/mL (3 32 unit subcut BID 07/29/22 07/29/22 07/29/22 History mL) subcutaneous pen (Tresiba FlexTouch U-200 insulin) levothyroxine 75 mcg tablet 37.5 mcg PO DAILY 07/29/22 07/29/22 07/29/22 History Physical Exam 2 Vital Signs and Narrative: Vital Signs: Last Vital Signs Temp 97.8 F 07/29/22 19:26 Pulse 83 07/29/22 19:26 Resp 17 07/29/22 19:26 BP 174/94 H 07/29/22 19:26 Pulse Ox 98 07/29/22 19:26 O2 Del Method 07/29/22 19:26 BMI result Body Mass Index 31.8 Const: General: cooperative and no acute distress Orientation/consciousness: patient oriented x3 HEENT: Other: left ear canal clean, there is wax at the tympanic membrane with no evidence of perforation Eyes: General: appearance normal, both eyes and all related structures Resp: Effort & Inspection: normal respiratory effort and able to speak in complete sentences Cardio: Rate: regular rate Rhythm: regular rhythm GI: Palpation (GI): Soft to palpation Auscultation: normal bowel sounds Skin: General skin exam: no rashes or lesions noted Neuro: Other: there is evidence of drooping on the left face, patient able to wrinkle forehead, there is drooping of the left eyebrow, eyelid, as well as drooping at the edge of the mouth on the left. his tongue is also deviating to the right. no nystagmus strength is 5/5 in all extremities speech is comprehensible and clear with no slurring General: patient oriented x3 Cognition (Neuro): normal cognition Extrem: General: Yes normal to inspection and Yes no pedal edema Results Labs CBC and Chem 7: 07/29/22 15:38 07/29/22 15:38 Labs: Laboratory Results - last 24 hr 07/29/22 07/29/22 07/29/22 15:38 15:38 15:38 MCV 91.3 MCH 30.3 MCHC 33.2 RDW 13.1 Plt Count 291 MPV 10.2 Immature Gran % (Auto) 0.4 Neut % (Auto) 59.5 Lymph % (Auto) 29.4 [place] % (Auto) 7.8 Eos % (Auto) 2.4 Baso % (Auto) 0.5 Lymph # (Auto) 2.7 [place] # (Auto) 0.7 Eos # (Auto) 0.2 Baso # (Auto) 0.1 Abs Immat Gran (auto) 0.04 H Absolute Neuts (auto) 5.5 Absolute Nucleated RBC 0.000 Nucleated RBC % (auto) 0.0 ESR 2 Anion Gap 16 Estim Creat Clear Calc 72.9 Estimated GFR > 60 Random Glucose 198 H Calcium 9.1 D Magnesium 2.0 Total Bilirubin 0.6 Direct Bilirubin 0.3 AST 17 ALT 17 Alkaline Phosphatase 81 D Total Protein 6.6 Albumin 4.1 COVID-19 (MAURICE) COVID-19 Clin Com 07/29/22 18:36 MCV MCH MCHC RDW Plt Count MPV Immature Gran % (Auto) Neut % (Auto) Lymph % (Auto) [place] % (Auto) Eos % (Auto) Baso % (Auto) Lymph # (Auto) [place] # (Auto) Eos # (Auto) Baso # (Auto) Abs Immat Gran (auto) Absolute Neuts (auto) Absolute Nucleated RBC Nucleated RBC % (auto) ESR Anion Gap Estim Creat Clear Calc Estimated GFR Random Glucose Calcium Magnesium Total Bilirubin Direct Bilirubin AST ALT Alkaline Phosphatase Total Protein Albumin COVID-19 (MAURICE) Negative COVID-19 Clin Com See Note Imaging Radiologist's Impressions: Impressions Head CT 07/29/22 16:08 IMPRESSION: No acute intracranial pathology. Head/Neck CTA 07/29/22 17:23 IMPRESSION: 1. Age-indeterminate occlusion of the intradural left vertebral artery just distal to the left PICA takeoff. There is robust supply of the basilar artery and posterior circulation via a widely patent right vertebral artery. 2. Moderate to severe burden of lipid rich atherosclerotic plaque involving the distal cervical left ICA with approximately 70% stenosis of the vessel origin at the junction of the cervical and petrous segments. Assessment and Plan (1) CVA (cerebral vascular accident): Status: Acute (2) Neck pain on left side: Status: Acute (3) Left ear pain: Status: Acute (4) Stenosis of left vertebral artery: Status: Acute Plan 67-year-old male with past medical history of hypothyroidism, HTN, diabetes, CAD, presents to the hospital with complaints of left neck ear and head pain found to have possible CVA # acute CVA versus Saucedo's palsy - Saucedo's palsy less likely as patient has innervation of his left forehead and no significant drooping of the eyelid - h has focal deficits of the has focal deficit of the cranial nerves as evidence by facial droop, deviation of the tongue, - has left vertebral artery occlusion as well as left ICA stenosis of 70% - at this time will continue daily aspirin, continue high-dose statin - neurology consulted - MRI stat in a.m. - lipid battery - PT OT # vertebral artery occlusion, - likely the cause of his pain on the left of the neck, as well as pain in the ear - will consult vascular surgery - continue aspirin and statin # left ICA stenosis - of 70% - vascular surgery consulted - MRI of the brain in a.m. - neurology on consult # diabetes - low-dose sliding scale insulin - continue home insulin - diabetic diet # hypertension - elevated - will hold lisinopril at this time to allow for permissive hypertension # hypothyroidism - continue levothyroxine DVT prophylaxis: Lovenox Quality Stroke Does the patient have a stroke diagnosis?: No VTE Prior VTE?: No VTE Risk Level:: Medical - moderate - high VTE Device Contraindication: Treatment Not Indicated VTE Drug Contraindication: N/A - Med Ordered
[2022-07-29 21:48] VITALS: BP 148/77; PULSE 93; RESP 17; O2SAT 95
[2022-07-29] MEDS: Insulin Lispro 100 UNIT/ML 3 ML VIAL SUBCUT (21:50)
[2022-07-29 21:57] LABS: Glucose, Whole Blood 155 mg/dL (60-115)
[2022-07-29 22:48] VITALS: PULSE 108; RESP 16
[2022-07-30 02:24] VITALS: BP 160/95; PULSE 86; RESP 16; TEMP 36.2; O2SAT 96
[2022-07-30 05:06] VITALS: BP 155/85; PULSE 82; RESP 17; TEMP 36.1; O2SAT 97
[2022-07-30 06:41] LABS: MANUAL DIFF FLAG NO
[2022-07-30 06:51] LABS: Basophils Absolute Auto 0.1 X10*3/uL (0.0-0.2); Basophils Percent Auto 0.8 % (0-2); Eosinophils Absolute Auto 0.2 X10*3/uL (0.0-0.4); Eosinophils Percent Auto 2.8 % (0-4); Hematocrit 45.2 % (42.0-52.0); Hemoglobin 15.5 g/dl (14.0-18.0); Imm Gran Abs Auto 0.04 X10*3/uL (0.00-0.03); Imm Gran Pct Auto 0.5 % (0.0-0.4); Lymphocytes Absolute Auto 2.7 X10*3/uL (1.2-4.9); Lymphocytes Percent Auto 34.7 % (20-40); Mean Corpuscular HGB Conc 34.3 g/dl (31.0-36.0); Mean Corpuscular Hemoglobin 30.9 pg (27.0-33.0); Mean Platelet Volume 10.2 fL (9.4-12.4); Monocytes Absolute Auto 0.5 X10*3/uL (0.1-1.2); Neutrophils Absolute Auto 4.2 x10*3/uL (2.0-8.3); Neutrophils Percent Auto 54.2 % (45-73); Platelet Count 270 X10*3/uL (160-400); Red Blood Count 5.02 X10*6/uL (4.60-5.80); White Blood Count 7.8 X10*3/uL (4.8-10.8)
[2022-07-30 07:00] LABS: Anion Gap 15 (12-20); Blood Urea Nitrogen 14 mg/dL (9-16); Calcium 8.6 mg/dL (8.4-10.2); Carbon Dioxide 21 mmol/L (22-29); Chloride 106 mmol/L (96-108); Cholesterol 133 mg/dL; Creatinine Clr Calc Pharmacy 106.6; Estimated Glomerular Filt Rate > 60; Glucose Random 159 mg/dL (60-115); HDL Cholesterol 37 mg/dL; LDL Cholesterol Calculated 82 mg/dl; Potassium 4.5 mmol/L (3.3-5.1); Sodium 137 mmol/L (135-145); Triglycerides 74 mg/dL
[2022-07-30 07:26] LABS: Glucose, Whole Blood 175 mg/dL (60-115)
[2022-07-30 07:59] VITALS: BP 150/82; PULSE 80; RESP 20; TEMP 36.4; O2SAT 97
[2022-07-30] MEDS: Enoxaparin Sodium 40 MG/0.4 ML SYRINGE SUBCUT (08:51)
[2022-07-30] MEDS: Metoprolol Tartrate 50 MG TABLET PO (08:51)
[2022-07-30] MEDS: Aspirin Enteric Coated 81 MG TABLET.DR PO (08:51)
[2022-07-30] MEDS: Levothyroxine Sodium 75 MCG TABLET 37.5 MCG PO (08:51)
[2022-07-30] MEDS: Atorvastatin Calcium 80 MG TABLET PO (08:51)
[2022-07-30] MEDS: Insulin Lispro 100 UNIT/ML 3 ML VIAL SUBCUT ×2 (09:02→11:31)
[2022-07-30 09:31] VITALS: BP 150/82; PULSE 80; O2SAT 97
--- NOTE | 2022-07-30 10:32 | PM.EVENT ---
Event Note Date of Service: 07/30/22 Event Note: Patient imaging reviewed. Vertebral artery occlusion is not of concern as it is well collateralized. More concerning is these 70 % stenosis on the left side. Although CT of the head was negative for stroke MRI is pending. Patient is already on an aspirin and statin. We will review imaging. May require carotid endarterectomy most likely in an elective setting. Will follow with you
[2022-07-30 11:27] VITALS: BP 148/78; PULSE 80; RESP 16; TEMP 36.5; O2SAT 97
[2022-07-30 11:27] LABS: Glucose, Whole Blood 220 mg/dL (60-115)
[2022-07-30] MEDS: Insulin Glargine,Hum.rec.anlog 100 UNIT/ML 10 ML VIAL 20 UNIT SUBCUT (11:32)
--- NOTE | 2022-07-30 12:50 | MHC.CM.PN ---
met with pt in overflow pt lives with was seen by physical therapy who reprots pt not needing pt is pat vax x 4 has own ride home dc plan home no servceis
--- NOTE | 2022-07-30 13:07 | P.CNNE_ITS ---
History of Present Illness Data of Consult Service Date: 07/30/22 Primary Care Provider: Cash Milan, [facility]- HPI Reason for consult: Left-sided facial pain 67-year-old male with past medical history of diabetes, HTN, CAD status post NSTEMI, HLD, hypothyroidism, presents to the hospital with complaints of left neck, year, and head pain. He started noticing left-sided facial weakness and weakness of blinking yesterday. There was no change in his taste or headache. Review of Systems Review of Systems: No recent obvious cold or flu-like illness PMFSH Past Medical History Medical History Adult hypothyroidism Atherosclerotic cardiovascular disease Basal cell carcinoma HTN (hypertension) Non-ST elevation [place] (NSTEMI) Other and unspecified hyperlipidemia Type 2 diabetes mellitus with unspecified complications Family History Family History Father Stroke Substance use disorder Mother Breast cancer HTN (hypertension) Surgical History Surgical History History of cardiac catheterization (~06/17/20) S/P CABG x 4 (~06/30/20) Social History Social History Housing: House Patient Tobacco Use Status: Never used Tobacco e-Cigarette/Vaping Use: Never Used Advance Directives: No Advance Directives Information Provided: No service: No Current occupational status: retired Cognitive needs: No Hearing needs: No Vision needs: No Meds Allergies Allergy/AdvReac Type Severity Reaction Status Date / Time Penicillins [PCN] Allergy Unknown RASH Verified 06/20/22 13:13 glipizide AdvReac Unknown Nausea/Loss Verified 06/20/22 13:13 of appetite metformin AdvReac Unknown GI upset Verified 06/20/22 13:13 Active Medications: Current Medications Acetaminophen (Acetaminophen 325 Mg Tablet) 650 mg PO Q6H PRN PRN Reason: Pain, Mild (Pain Scale 1-3) Aspirin (Aspirin Enteric Coated 81 Mg Tablet.) 81 mg PO DAILY [facility] Last Admin: 07/30/22 08:51 Dose: 81 mg Atorvastatin Calcium (Atorvastatin Calcium 80 Mg Tablet) 80 mg PO DAILY [facility] Last Admin: 07/30/22 08:51 Dose: 80 mg Dextrose (Dextrose 50 % 25 Gm/50 Ml Syringe) 25 gm IVPUSH Q15M PRN; Protocol PRN Reason: per Hypoglycemia Standing Ord. Docusate Sodium (Docusate Sodium 100 Mg Capsule) 100 mg PO DAILY PRN PRN Reason: Constipation Enoxaparin Sodium (Enoxaparin Sodium 40 Mg/0.4 Ml Syringe) 40 mg SUBCUT Q24H [facility] Last Admin: 07/30/22 08:51 Dose: 40 mg Glucose (Glucose Gel 15 Gm Gel..Gram.) 15 gm PO Q15M PRN; Protocol PRN Reason: per Hypoglycemia Standing Ord. Insulin Glargine (Insulin Glargine,Hum.Rec.Anlog 100 Unit/Ml 10 Ml Vial) 20 unit SUBCUT BID [facility] Last Admin: 07/30/22 11:32 Dose: 20 unit Insulin Human Lispro (Insulin Lispro 100 Unit/Ml 3 Ml Vial) 0 unit SUBCUT QIDACHS [facility]; Protocol Last Admin: 07/30/22 11:31 Dose: 4 unit Levothyroxine Sodium (Levothyroxine Sodium 75 Mcg Tablet) 37.5 mcg PO DAILY [facility] Last Admin: 07/30/22 08:51 Dose: 37.5 mcg Metoprolol Tartrate (Metoprolol Tartrate 50 Mg Tablet) 50 mg PO BID [facility]; Protocol Last Admin: 07/30/22 08:51 Dose: 50 mg Nitroglycerin (Nitroglycerin 0.4 Mg Tab.Subl) 0.4 mg SUBLINGUAL Q5M PRN PRN Reason: chest pain Ondansetron HCl (Ondansetron Hcl 4 Mg/2 Ml Vial) 4 mg IVPUSH Q8H PRN PRN Reason: Nausea and Vomiting Pharmacy Consult (Consult Rx Perform Med Rec) 1 each MISCELLANE ONCE PRN PRN Reason: Consult order Home Medications Medication Instructions Recorded Confirmed Last Taken Type aspirin 81 mg tablet,delayed 81 mg PO Q2D 11/18/20 07/29/22 07/01/22 History release nitroglycerin 0.4 mg sublingual 0.4 mg sublingual Q5M PRN chest 11/18/20 07/29/22 Unknown History tablet pain insulin aspart U-100 100 unit/mL See Protocol subcut TIDAC 02/21/22 07/29/2207/29/22 History (3 mL) subcutaneous pen (Novolog Flexpen U-100 Insulin aspart) atorvastatin 80 mg tablet 80 mg PO Q2D@2100 07/29/22 07/29/22 07/28/22 History insulin degludec 200 unit/mL (3 32 unit subcut BID 07/29/22 07/29/22 07/29/22 History mL) subcutaneous pen (Tresiba FlexTouch U-200 insulin) levothyroxine 75 mcg tablet 37.5 mcg PO DAILY 07/29/22 07/29/22 07/29/22 History Physical Exam Vital Signs: Vital Signs: Last Vital Signs Temp 97.7 F 07/30/22 11:27 Pulse 80 07/30/22 11:27 Resp 16 07/30/22 11:27 BP 148/78 H 07/30/22 11:27 Pulse Ox 97 07/30/22 11:27 O2 Del Method 07/30/22 11:27 BMI result Body Mass Index 31.8 Neuro: Other: He is alert and awake with normal spontaneity of speech fluency comprehension and affect. Alju-[id number]-[id number] left peripheral type of facial weakness is noted. Tongue is midline. Visual vicente are full. Pupils are equal and reactive to light. There is no focal arm or leg weakness. Speech is normal. Results Labs CBC & Chem 7: 07/30/22 06:12 07/30/22 06:12 Labs: Short CBC 07/29/22 07/30/22 Range/Units 15:38 06:12 WBC 9.3 7.8 (4.8-10.8) X10*3/uL Hgb 16.0 15.5 (14.0-18.0) g/dl Hct 48.2 45.2 (42.0-52.0) % Plt Count 291 270 (160-400) X10*3/uL BMP 07/29/22 07/30/22 15:38 06:12 Sodium 137 137 Potassium 4.8 4.5 Chloride 104 106 Carbon Dioxide 22 21 L BUN 20 H D 14 Creatinine 1.17 0.80 Calcium 9.1 D 8.6 Liver Function 07/29/22 Range/Units 15:38 Total Bilirubin 0.6 (0.0-1.0) mg/dL Direct Bilirubin 0.3 (0.0-0.5) mg/dL AST 17 (5-37) U/L ALT 17 (0-40) U/L Alkaline Phosphatase 81 D (39-117) U/L Albumin 4.1 (3.5-5.0) g/dL MRI of brain did not reveal any acute abnormality. Moderate amount of chronic microvascular ischemic lesions were noted. CTA of brain revealed vertebral and intracranial carotid disease per Assessment and Plan (1) Saucedo's palsy: Status: Acute It is treated with a brief course of prednisone starting with 60 mg a day and tapering it off in 10-14 days and and antiviral drugs such as valacyclovir (2) Cerebral microvascular disease: Status: Acute (3) Intracranial atherosclerosis: Status: Acute Is treated with blood pressure control anti-platelet agent and statins. Procedures Date of Service Date of Service: 07/30/22
--- NOTE | 2022-07-30 13:24 | PM.DS ---
DS: Providers Provider Date of Service: 07/30/22 Date of admission: 07/29/22 20:48 Date of discharge: 07/30/22 Primary care physician: JASSON Ly Consults: 07/29/22 20:49 Consult to Neurology Routine Consulting Provider: [facility] Reason for consultation: CVA vs Stokes palsy Has provider been notified: No 07/30/22 06:04 Consult to Vascular Surgery Routine Consulting Provider: Hawk Mendoza Reason for consultation: ICA 70% stenosis, occlusion left Vertebral artery Has provider been notified: No [facility]ing clinician: Emely Soto DS: Diagnosis Discharge Diagnosis (1) Saucedo's palsy: Status: Acute (2) Cerebral microvascular disease: Status: Acute (3) Intracranial atherosclerosis: Status: Acute DS: Summary Hospital Course Hospital Course: From H&P on day of admission 67-year-old male with past medical history of diabetes, HTN, CAD status post NSTEMI, HLD, hypothyroidism, presents to the hospital with complaints of left neck, year, and head pain.? Patient reports that he has had the symptoms for about 1 week now, the pain is intermittent, lasting few minutes, resolving spontaneously.? He reports that today his noticed that he is got swelling in his left cheek, and because of the persistent pain in his ear he decided to go to Urgent Care.? In Urgent Care patient was asked to come to the? ED because they could not rule out CVA as the cause of his complaints.? There is evidence of facial droop on the left, when asked the patient about it he reports that he did not notice it and he does not know how long this been there before.? He reports that he has had difficulty spinning but no difficulty with swallowing.? He has had no change in his vision, and reports? intermittent headache.? In regards to the neck pain, he reports that the neck pain is on the left, shooting stabbing pain, radiating to the ER, as well as left temporal head.? He reports no difficulty or change in his speech.? No numbness tingling or weakness in his arms or legs.? He has had no similar symptoms in the past.? He reports? 1 episode of ringing in the ear that occurred a day prior to presentation.? Reports no drainage? From his ear and no change in his hearing.? He denies any chest pain, no palpitations, no abdominal pain nausea or vomiting, no diarrhea constipation, no urinary symptoms and no lower extremity ? ?on arrival to the ED patient hemodynamically stable with no significant abnormal vitals except for an elevated blood pressure of 184/88 ?labs are unremarkable. Head CT shows no acute abnormality, Head and neck CT angiogram? shows age indeterminate occlusion of the? intradural? left vertebral artery just distal to the left PICA takeoff.? there is robust supply of the basilar artery and posterior circulation via widely patent right vertebral artery.? Moderate to severe burden of? lipid rich arthrosclerotic plaque involving the distal cervical left ICA with approximately 70% stenosis of the vessel. ? Patient will be admitted for further management Facial droop. patient underwent brain MRI which showed no evidence of acute stroke. He was seen in consultation by Neurology who agreed with the diagnosis of Saucedo's palsy. They recommended treatment with oral steroids and valacyclovir. He is able to completely close his left eye but is encouraged call PCP for follow-up or if he begins having difficulty closing the left eye. He will be discharged on oral prednisone for 10 days as well as valacyclovir for 7 days. He was also noted to have left carotid stenosis. This was discussed with vascular surgery who recommended to continue aspirin and statin and call to schedule follow-up appointment as an outpatient. He will likely need carotid endarterectomy in the future. Vertebral artery occlusion not concerning due to good collateral circulation. Time Spent with Patient Time attestation: Total time spent providing and/or coordinating discharge services: Discharge coordination time: Greater than 30 minutes Quality: Safe Use of Opioids Does Pt have an Active Cancer Diagnosis on the Problem List?: No Quality: Stroke Does the patient have a stroke diagnosis?: No Physical Exam Vital Signs: Vital Signs: Last Vital Signs Temp 97.7 F 07/30/22 11:27 Pulse 80 07/30/22 11:27 Resp 16 07/30/22 11:27 BP 148/78 H 07/30/22 11:27 Pulse Ox 97 07/30/22 11:27 O2 Del Method 07/30/22 11:27 BMI result Body Mass Index 31.8 Const: General: cooperative, comfortable, alert and awake Nutritional Appearance: overweight Orientation/consciousness: patient oriented x3 Eyes: Pupils: Equal, round and reactive pupils present EOM: No Nystagmus present Resp: Effort & Inspection: normal respiratory effort and able to speak in complete sentences Auscultation: clear to auscultation bilaterally Cardio: Rate: regular rate Heart sounds: S1 normal heart sound present and S2 normal heart sound present GI: Inspection: No distended Palpation (GI): Soft to palpation and nontender Neuro: Other: able to close left eye with effort, able to wrinkle forehead, left facial weakness with left facial droop General: patient oriented x3 Cranial nerves: Yes Equal, round and reactive pupils present, Yes Bilaterally intact EOM present, Yes Nystagmus not present and No Nystagmus present Motor exam (neuro): 5/5 motor strength present throughout and Pronator motor function not present Extrem: General: Yes no pedal edema DS: Data Data Completed and Pending Labs on day of discharge: Laboratory Results - last 24 hr 07/29/22 07/29/22 07/29/22 15:38 15:38 15:38 WBC 9.3 RBC 5.28 Hgb 16.0 Hct 48.2 MCV 91.3 MCH 30.3 MCHC 33.2 RDW 13.1 Plt Count 291 MPV 10.2 Immature Gran % (Auto) 0.4 Neut % (Auto) 59.5 Lymph % (Auto) 29.4 [place] % (Auto) 7.8 Eos % (Auto) 2.4 Baso % (Auto) 0.5 Lymph # (Auto) 2.7 [place] # (Auto) 0.7 Eos # (Auto) 0.2 Baso # (Auto) 0.1 Abs Immat Gran (auto) 0.04 H Absolute Neuts (auto) 5.5 Absolute Nucleated RBC 0.000 Nucleated RBC % (auto) 0.0 ESR 2 Sodium 137 Potassium 4.8 Chloride 104 Carbon Dioxide 22 Anion Gap 16 BUN 20 H D Creatinine 1.17 Estim Creat Clear Calc 72.9 Estimated GFR > 60 POC Glucose Random Glucose 198 H Calcium 9.1 D Magnesium 2.0 Total Bilirubin 0.6 Direct Bilirubin 0.3 AST 17 ALT 17 Alkaline Phosphatase 81 D Total Protein 6.6 Albumin 4.1 Triglycerides Cholesterol LDL Cholesterol, Calc HDL Cholesterol COVID-19 (MAURICE) COVID-19 Clin Com 07/29/22 07/29/22 07/30/22 18:36 21:32 06:12 WBC 7.8 RBC 5.02 Hgb 15.5 Hct 45.2 MCV 90.0 MCH 30.9 MCHC 34.3 RDW 13.0 Plt Count 270 MPV 10.2 Immature Gran % (Auto) 0.5 H Neut % (Auto) 54.2 Lymph % (Auto) 34.7 [place] % (Auto) 7.0 Eos % (Auto) 2.8 Baso % (Auto) 0.8 Lymph # (Auto) 2.7 [place] # (Auto) 0.5 Eos # (Auto) 0.2 Baso # (Auto) 0.1 Abs Immat Gran (auto) 0.04 H Absolute Neuts (auto) 4.2 Absolute Nucleated RBC 0.000 Nucleated RBC % (auto) 0.0 ESR Sodium Potassium Chloride Carbon Dioxide Anion Gap BUN Creatinine Estim Creat Clear Calc Estimated GFR POC Glucose 155 H Random Glucose Calcium Magnesium Total Bilirubin Direct Bilirubin AST ALT Alkaline Phosphatase Total Protein Albumin Triglycerides Cholesterol LDL Cholesterol, Calc HDL Cholesterol COVID-19 (MAURICE) Negative COVID-19 Clin Com See Note 07/30/22 07/30/22 07/30/22 06:12 06:12 07:22 WBC RBC Hgb Hct MCV MCH MCHC RDW Plt Count MPV Immature Gran % (Auto) Neut % (Auto) Lymph % (Auto) [place] % (Auto) Eos % (Auto) Baso % (Auto) Lymph # (Auto) [place] # (Auto) Eos # (Auto) Baso # (Auto) Abs Immat Gran (auto) Absolute Neuts (auto) Absolute Nucleated RBC Nucleated RBC % (auto) ESR Sodium 137 Potassium 4.5 Chloride 106 Carbon Dioxide 21 L Anion Gap 15 BUN 14 Creatinine 0.80 Estim Creat Clear Calc 106.6 Estimated GFR > 60 POC Glucose 175 H Random Glucose 159 H Calcium 8.6 Magnesium Total Bilirubin Direct Bilirubin AST ALT Alkaline Phosphatase Total Protein Albumin Triglycerides 74 Cholesterol 133 LDL Cholesterol, Calc 82 HDL Cholesterol 37 COVID-19 (MAURICE) COVID-19 [place] Com 07/30/22 11:21 WBC RBC Hgb Hct MCV MCH MCHC RDW Plt Count MPV Immature Gran % (Auto) Neut % (Auto) Lymph % (Auto) [place] % (Auto) Eos % (Auto) Baso % (Auto) Lymph # (Auto) [place] # (Auto) Eos # (Auto) Baso # (Auto) Abs Immat Gran (auto) Absolute Neuts (auto) Absolute Nucleated RBC Nucleated RBC % (auto) ESR Sodium Potassium Chloride Carbon Dioxide Anion Gap BUN Creatinine Estim Creat Clear Calc Estimated GFR POC Glucose 220 H Random Glucose Calcium Magnesium Total Bilirubin Direct Bilirubin AST ALT Alkaline Phosphatase Total Protein Albumin Triglycerides Cholesterol LDL Cholesterol, Calc HDL Cholesterol COVID-19 (MAURICE) COVID-19 Clin Com Discharge Plan Discharge Patient Disposition: Home, Self-Care Discharge Diagnosis: Saucedo's Palsy Referrals: [facility] Neuro/Sleep [Provider Group] (Call to establish and follow up with a neurologist. ) Cash Milan, HOME THEATRE TECHNICIAN- [Primary Care Provider] - Hawk Mendoza MD [Physician] - 1 Week Discharge Medications: New prednisone 20 mg tablet See Taper PO DAILY Qty: 25 0RF Taper: Prednisone 60 mg daily for 7 Days and 0 Hour 40 mg daily for 1 Day and 0 Hour 20 mg daily for 1 Day and 0 Hour 10 mg daily for 1 Day and 0 Hour valacyclovir 1 gram tablet 1,000 mg PO Q8H 7 Days Qty: 21 0RF Continued metoprolol tartrate 50 mg tablet 50 mg PO BID Qty: 180 3RF lisinopril 5 mg tablet 5 mg PO DAILY 90 Days Qty: 90 2RF atorvastatin 80 mg tablet 80 mg PO Q2D@2100 Rx Instructions: At bedtime levothyroxine 75 mcg tablet 37.5 mcg PO DAILY Tresiba FlexTouch U-200 200 unit/mL (3 mL) insulin pen 32 unit subcut BID aspirin 81 mg tablet,delayed release (DR/EC) 81 mg PO Q2D nitroglycerin 0.4 mg tablet, sublingual 0.4 mg sublingual Q5M PRN (Reason: chest pain) insulin aspart U-100 [Novolog Flexpen U-100 Insulin] 100 unit/mL (3 mL) insulin pen See Protocol subcut TIDAC Protocol: Insulin Correction Scale Less than or equal to 110 ---- Give (units): 0 111 to 150 Give (units): 0 151 to 200 Give (units): 2 201 to 250 Give (units): 4 251 to 300 Give (units): 6 301 to 350 Give (units): 8 Greater than 350 Give (units): 10 Call MD if Blood Glucose > : 350 No Action (DME) pen needle, diabetic 31 gauge x 3/16 needle See Rx Instructions subcut .MEDSUPPLY Qty: 100 2RF Rx Instructions: BID with tresiba (DME) FreeStyle Ash 14 Day [place] Misc See Rx Instructions .Route Qty: 1 6RF Rx Instructions: As directed (DME) FreeStyle Ash 14 Day Sensor Kit See Rx Instructions .Route Qty: 1 8RF Rx Instructions: As directed Discharge Orders: Discharge Order (Routine); Ordered 07/30/22 Ordered By: Emely Soto Activity on Discharge: As tolerated Stand Alone Forms: Patient Portal Discharge page Print Language: Rwandan Care Plan Goals: see below Health Concerns: Saucedo's Palsy Carotid artery stenosis Plan of Treatment: Take prednisone and vlacyclovir call to schedule follow-up with PCP call to schedule follow-up with vascular surgery - Dr Mendoza for carotid stenosis Continue to take daily baby aspirin and statin Assessment: see discharge summary Patient Instructions: Saucedo Palsy (DC) Discharge Date/Time: 07/30/22 15:14
[2022-07-30] MEDS: predniSONE 20 MG TABLET 60 MG PO (14:00)
--- NOTE | 2022-07-30 15:06 | MHC.CM.PN ---
pt dcd home no skilled servcies ordered by
[2022-08-01 21:48] LABS: Lyme Abs Screen <0.90 index
== END 2022-07-30 15:14 | disposition home or self-care (01) ==
LOC: HO.ED 17:58 → HO.EDOVER 22:21
PROVIDERS: Emergency Medicine; Admitting Provider Internal Medicine; Emergency Provider Emergency Medicine; PCP Nurse Practitioner Family; Visit Provider Physician Assistant Medical
DX: G51.0 Bell's palsy (principal); M54.2 Cervicalgia; H92.02 Otalgia, left ear; E78.5 Hyperlipidemia, unspecified; R51.9 Headache, unspecified; E11.9 Type 2 diabetes mellitus without complications; I10 Essential (primary) hypertension; I25.10 Atherosclerotic heart disease of native coronary artery without angina pectoris; R26.81 Unsteadiness on feet; Z20.822 Contact with and (suspected) exposure to COVID-19; Z79.899 Other long term (current) drug therapy; Z79.84 Long term (current) use of oral hypoglycemic drugs
CPT/HCPCS: 36415; 70450; 70496; 70498; 70551; 80048; 80061; 80076; 82947; 83735; 85025; 85652; 86617; 86618; 87635; 93005; 94660; 96372; 96374; 96375; 97162; 99219; 99285; J1650; Q9967

== ENCOUNTER → 2022-08-22 13:28 | Outpatient (BNVA) | payer MEDICARE, OTHER, SELFPAY | PROVIDERS: PCP Nurse Practitioner Family; Visit Provider Urology | DX: N28.1 Cyst of kidney, acquired (principal); N20.0 Calculus of kidney; N40.0 Benign prostatic hyperplasia without lower urinary tract symptoms | CPT/HCPCS: Q3014 ==

== ENCOUNTER → 2022-09-05 10:30 | Outpatient (BNVA) | payer MEDICARE, OTHER, SELFPAY | PROVIDERS: PCP Nurse Practitioner Family; Visit Provider Surgery Vascular Surgery | DX: I65.22 Occlusion and stenosis of left carotid artery (principal) | CPT/HCPCS: 99212 ==

== ENCOUNTER → 2022-09-08 11:07 | Outpatient (BNVA) | payer MEDICARE, OTHER, SELFPAY | PROVIDERS: PCP Nurse Practitioner Family; Referring Provider Nurse Practitioner Family; Visit Provider Internal Medicine | DX: Z01.810 Encounter for preprocedural cardiovascular examination (principal); I25.10 Atherosclerotic heart disease of native coronary artery without angina pectoris; I10 Essential (primary) hypertension; E11.8 Type 2 diabetes mellitus with unspecified complications; E78.5 Hyperlipidemia, unspecified | CPT/HCPCS: 99212 ==

== ENCOUNTER 2022-10-17 09:59 | Outpatient (REF) | payer MEDICARE, OTHER, SELFPAY ==
[2022-10-17 11:30] LABS: MANUAL DIFF FLAG NO
[2022-10-17 11:34] LABS: Basophils Absolute Auto 0.1 X10*3/uL (0.0-0.2); Basophils Percent Auto 0.8 % (0-2); Eosinophils Absolute Auto 0.3 X10*3/uL (0.0-0.4); Eosinophils Percent Auto 3.2 % (0-4); Hematocrit 49.9 % (42.0-52.0); Hemoglobin 16.4 g/dl (14.0-18.0); Imm Gran Abs Auto 0.06 X10*3/uL (0.00-0.03); Imm Gran Pct Auto 0.7 % (0.0-0.4); Lymphocytes Absolute Auto 2.4 X10*3/uL (1.2-4.9); Lymphocytes Percent Auto 29.1 % (20-40); Mean Corpuscular HGB Conc 32.9 g/dl (31.0-36.0); Mean Corpuscular Hemoglobin 29.8 pg (27.0-33.0); Mean Corpuscular Volume 90.7 fL (80.0-98.0); Mean Platelet Volume 10.6 fL (9.4-12.4); Monocytes Absolute Auto 0.7 X10*3/uL (0.1-1.2); Monocytes Percent Auto 8.2 % (2-11); Neutrophils Absolute Auto 4.8 x10*3/uL (2.0-8.3); Platelet Count 319 X10*3/uL (160-400); Red Cell Distribution Width 13.2 % (11.0-16.0); White Blood Count 8.3 X10*3/uL (4.8-10.8)
[2022-10-17 11:50] LABS: Appearance Urine Clear; Color Urine Yellow; Glucose Urine UA Negative (Negative); Leukocyte Esterase Urine Negative (Negative); Nitrite Urine Negative (Negative); PH 5.5 (5.0-9.0); Urine Blood Negative (Negative); Urine Ketones Negative (Negative); Urine Protein Negative (Neg-Trace)
[2022-10-17 12:28] LABS: Alanine Aminotransferase 15 U/L (0-40); Albumin Level 4.2 g/dL (3.5-5.0); Alkaline Phosphatase 86 U/L (39-117); Anion Gap 13 (12-20); Aspartate Amino Transferase 15 U/L (5-37); Bilirubin Total 0.9 mg/dL (0.0-1.0); Blood Urea Nitrogen 14 mg/dL (9-16); Calcium 9.4 mg/dL (8.4-10.2); Carbon Dioxide 27 mmol/L (22-29); Chloride 102 mmol/L (96-108); Cholesterol 177 mg/dL; Estimated Glomerular Filt Rate > 60; Glucose Fasting 212 mg/dL (60-99); HDL Cholesterol 49 mg/dL; LDL Cholesterol Calculated 113 mg/dl; Potassium 4.8 mmol/L (3.3-5.1); Sodium 137 mmol/L (135-145); TSH reflex Free T4 2.63 uIU/mL (0.32-4.0); Total Protein 6.5 g/dL (6.5-8.0); Triglycerides 75 mg/dL
[2022-10-25 22:34] LABS: PSA, Ultra Sensitive 0.61 ng/mL
== END 2022-10-17 10:00 | disposition home or self-care (01) ==
LOC: HO.HMGCLDS 09:59
PROVIDERS: Urology; PCP Nurse Practitioner Family; Visit Provider Nurse Practitioner Family
DX: Z12.5 Encounter for screening for malignant neoplasm of prostate (principal); N40.0 Benign prostatic hyperplasia without lower urinary tract symptoms; G51.0 Bell's palsy; I65.29 Occlusion and stenosis of unspecified carotid artery
CPT/HCPCS: 36415; 80053; 80061; 81003; 84153; 84443; 85025

== ENCOUNTER → 2022-10-25 13:07 | Outpatient (BNVA) | payer MEDICARE, OTHER, SELFPAY | PROVIDERS: PCP Nurse Practitioner Family; Visit Provider Surgery Vascular Surgery | DX: I65.22 Occlusion and stenosis of left carotid artery (principal); Z79.82 Long term (current) use of aspirin; Z79.899 Other long term (current) drug therapy | CPT/HCPCS: 99212 ==

== ENCOUNTER → 2023-02-20 10:33 | Outpatient (BNVA) | payer MEDICARE, OTHER, SELFPAY | PROVIDERS: PCP Nurse Practitioner Family; Visit Provider Urology | DX: Z12.5 Encounter for screening for malignant neoplasm of prostate (principal); N20.0 Calculus of kidney; N28.1 Cyst of kidney, acquired; R31.29 Other microscopic hematuria; N40.0 Benign prostatic hyperplasia without lower urinary tract symptoms | CPT/HCPCS: 51798; 99212 ==

== ENCOUNTER 2023-04-21 09:55 | Outpatient (REF) | payer MEDICARE, OTHER, SELFPAY ==
[2023-04-21 11:20] LABS: MANUAL DIFF FLAG NO
[2023-04-21 11:39] LABS: Basophils Absolute Auto 0.1 X10*3/uL (0.0-0.2); Basophils Percent Auto 0.6 % (0-2); Eosinophils Absolute Auto 0.2 X10*3/uL (0.0-0.4); Eosinophils Percent Auto 2.8 % (0-4); Hematocrit 49.2 % (42.0-52.0); Hemoglobin 16.2 g/dl (14.0-18.0); Imm Gran Abs Auto 0.07 X10*3/uL (0.00-0.03); Imm Gran Pct Auto 0.9 % (0.0-0.4); Lymphocytes Absolute Auto 2.4 X10*3/uL (1.2-4.9); Mean Corpuscular HGB Conc 32.9 g/dl (31.0-36.0); Mean Corpuscular Hemoglobin 29.5 pg (27.0-33.0); Mean Corpuscular Volume 89.6 fL (80.0-98.0); Mean Platelet Volume 10.4 fL (9.4-12.4); Monocytes Absolute Auto 0.6 X10*3/uL (0.1-1.2); Neutrophils Absolute Auto 4.6 x10*3/uL (2.0-8.3); Neutrophils Percent Auto 58.7 % (45-73); Platelet Count 309 X10*3/uL (160-400); Red Blood Count 5.49 X10*6/uL (4.60-5.80); Red Cell Distribution Width 13.7 % (11.0-16.0); White Blood Count 7.9 X10*3/uL (4.8-10.8)
[2023-04-21 11:46] LABS: Appearance Urine Clear; Color Urine Yellow; Glucose Urine UA Negative (Negative); Leukocyte Esterase Urine Negative (Negative); Nitrite Urine Negative (Negative); Urine Blood Negative (Negative); Urine Ketones Negative (Negative); Urine Protein Negative (Neg-Trace)
[2023-04-21 12:01] LABS: Estimated Average Glucose 200 mg/dL; Hemoglobin A1c % 8.6 %
[2023-04-21 12:16] LABS: Creatinine Urine 143.21 mg/dL
[2023-04-21 12:53] LABS: PSA,Total (Free>4and<10) 0.74 ng/mL (0.00-4.00)
[2023-04-21 13:07] LABS: Alanine Aminotransferase 14 U/L (0-40); Albumin Level 4.1 g/dL (3.5-5.0); Alkaline Phosphatase 87 U/L (39-117); Anion Gap 15 (12-20); Aspartate Amino Transferase 14 U/L (5-37); Bilirubin Total 0.9 mg/dL (0.0-1.0); Blood Urea Nitrogen 12 mg/dL (9-16); Carbon Dioxide 24 mmol/L (22-29); Chloride 105 mmol/L (96-108); Cholesterol 178 mg/dL; Estimated Glomerular Filt Rate > 60; Glucose Fasting 187 mg/dL (60-99); HDL Cholesterol 48 mg/dL; LDL Cholesterol Calculated 119 mg/dl; Potassium 4.3 mmol/L (3.3-5.1); Sodium 140 mmol/L (135-145); TSH reflex Free T4 4.95 uIU/mL (0.32-4.0); Total Protein 6.6 g/dL (6.5-8.0); Triglycerides 57 mg/dL
[2023-04-21 14:06] LABS: Free T4 (Free Thyroxine) 0.88 ng/dL (0.71-1.85)
[2023-04-28 01:04] LABS: PSA, Ultra Sensitive 0.66 ng/mL
== END 2023-04-21 09:56 | disposition home or self-care (01) ==
LOC: HO.HMGCLDS 09:55
PROVIDERS: Absent Provider Urology; PCP Nurse Practitioner Family; Visit Provider Nurse Practitioner Family
DX: N40.0 Benign prostatic hyperplasia without lower urinary tract symptoms (principal); E11.9 Type 2 diabetes mellitus without complications; Z12.5 Encounter for screening for malignant neoplasm of prostate
CPT/HCPCS: 36415; 80053; 80061; 81003; 82043; 83036; 84153; 84439; 84443; 85025

== ENCOUNTER 2023-05-25 13:29 | Outpatient (AMB) | payer MEDICARE, OTHER, SELFPAY ==
--- NOTE | 2023-05-25 13:37 | MHC.PC.OV ---
Vital Signs 05/25/23 13:38 Height 6 ft Weight 234 lb 4 oz BMI 31.8 BP 148/90 H Blood Pressure Location Lt brachial Position Sitting Pulse 96 Pulse Source Pulse Oximeter Pulse Oximetry (%) 97 Oxygen Delivery Method Room Air Intake Visit Reasons: Annual PE Allergies Penicillins [PCN] Allergy (Unknown, Verified 05/25/23 13:39) RASH glipizide Adverse Reaction (Unknown, Verified 05/25/23 13:39) Nausea/Loss of appetite metformin Adverse Reaction (Unknown, Verified 05/25/23 13:39) GI upset Medication List - Last Reconciled 05/25/23 by Cash Milan, HISTOPATH TECH- aspirin 81 mg PO Q2D atorvastatin 80 mg PO Q2D@2100 ezetimibe 10 mg PO DAILY flash glucose scanning reader ([employer] Ash 14 Day [place]) As directed flash glucose sensor ([employer] Ash 14 Day Sensor kit) As directed insulin aspart U-100 (Novolog FlexPen U-100 Insulin aspart) See Protocol sliding scale doses subcut TIDAC insulin degludec (Tresiba FlexTouch U-200 insulin) 32 units (0.16 mL) subcut BID levothyroxine 37.5 mcg (1/2 x 75 mcg) PO DAILY lisinopril 5 mg PO DAILY 90 days metoprolol tartrate 50 mg PO BID nitroglycerin 0.4 mg sublingual Q5M PRN 10 days pen needle, diabetic BID with tresiba Tobacco use date assessed: 05/25/23 Fall risk assessment: No Falls in past year Last assessed Fall Risk: 05/25/23 Dental Screening Dental Screen Date: 05/25/23 Did you have a dental visit in the last 12 months?: Yes Did you have a dental problem in the last 6 months where you did not have access to dental care?: No Was dental information given to patient?: Patient has dentist HPI Annual PE HPI Details Pt is here for a PE. Will order labs. Cologuard is up to date. PSA is up to date. Pt is a diabetic, on an DEBBI and a statin. Last A1c was 8.6, microalbumin is up to date. Denies polyuria, polydipsia, and neuropathy. Pt denies any signs and symptoms of hypoglycemia and does know how to correct it (sees [facility] endo).BP elevated, pt, it's in the 120s/80s at home, this happens when i come into the doctor's office . Pt follows up with urology, vascular, cardiology, and dermatology [facility] Medical History Adult hypothyroidism Atherosclerotic cardiovascular disease Basal cell carcinoma HTN (hypertension) Non-ST elevation MT (NSTEMI) Other and unspecified hyperlipidemia Type 2 diabetes mellitus with unspecified complications Vaccination refused by patient Surgical History History of cardiac catheterization (~06/17/20) S/P CABG x 4 (~06/30/20) Family History Father Stroke Substance use disorder Mother Breast cancer HTN (hypertension) Social History Housing: House Patient Tobacco Use Status: Never used Tobacco e-Cigarette/Vaping Use: Never Used service: No Current occupational status: retired Cognitive needs: No Hearing needs: No Vision needs: No Questionnaire Thrive Questionnaire Date Thrive assessed: 01/26/23 JANNA-7 AMB Questionnaire JANNA-7 Date JANNA - 7 assessed: 01/26/23 Source: Developed by Drs. J Luis Enriquez, Linda Vance, Lior Duran and colleagues, with an educational amina from [employer]. Review of Systems Const Denies chills and Denies fever(s) Eyes Denies blurry vision ENT Denies vertigo, Denies dizziness and Denies sore throat Card Denies chest pain at rest, Denies chest pain with activity, Denies diaphoresis, Denies dyspnea and Denies dyspnea on exertion Resp Denies cough, Denies dyspnea, Denies dyspnea on exertion and Denies wheezing GI Denies abdominal pain, Denies melena, Denies hematochezia, Denies constipation, Denies diarrhea and Denies loose stools Denies hematuria Musc Denies numbness and Denies tingling Skin/Breast Denies lesions Neuro Denies vertigo, Denies dizziness, Denies numbness and Denies tingling Psych Denies anxiety, Denies depression, Denies homicidal ideation, Denies suicidal ideation and Denies other (substance abuse) Aller/Immun Denies wheezing Physical exam (Primary Care) Vital Signs: Last Vital Signs Pulse 96 05/25/23 13:38 BP 148/90 H 05/25/23 13:38 Pulse Ox 97 05/25/23 13:38 Oxygen Delivery Method Room Air 05/25/23 13:38 BMI result Body Mass Index 31.8 Tobacco/Smoking Status: Tobacco use Status Tobacco use date assessed 05/25/23 05/25/23 13:40 Patient Tobacco Use Status Never used Tobacco 05/25/23 13:40 e-Cigarette/Vaping Use Never Used 05/25/23 13:40 Thrive Assessment: Date of Thrive Assessment Date Thrive assessed 01/26/23 05/25/23 13:40 Const General: cooperative Nutritional Appearance: obese Orientation/consciousness: patient oriented x3 HENMT Head: Yes normal to inspection, Yes normocephalic and Yes atraumatic Ears: TM's normal bilaterally Eyes General: appearance normal, both eyes and all related structures Alignment and Position: alignment normal and position normal Neck Neck: Yes normal visual inspection and Yes no lymphadenopathy Thyroid: Thyroid normal Resp Effort & Inspection: normal respiratory effort Auscultation: clear to auscultation bilaterally Cardio Rate: regular rate Rhythm: regular rhythm Heart sounds: S1 normal heart sound present, S2 normal heart sound present and no murmurs GI Palpation (GI): Soft to palpation and nontender Auscultation: normal bowel sounds Male General Exam: Yes normal external exam Penis: normal penis Scrotum: scrotum normal, testes descended bilaterally and no inguinal hernias Testes: no testicular mass Skin Rashes: no rashes Neuro General: patient oriented x3, moves all extremities, no focal motor deficits and deep tendon reflexes 2+ bilaterally Romberg Test: Negative Psych Appearance: grossly normal Mental Status: mental status grossly normal Speech and movement: Normal speech and movement present Affect: normal affect Attitude: cooperative Thought process: Normal thought process present Thought content: Normal thought content present Insight: Good insight present (Psych) Judgement: Good judgement present (Psych) Assessment and Plan Assessment & Plan (1) Physical exam: Code(s): Z00.00 - Encounter for general adult medical examination without abnormal findings Plan: Labs ordered (2) Screening PSA (prostate specific antigen): Code(s): Z12.5 - Encounter for screening for malignant neoplasm of prostate Plan The patient agreed to the use of a medical device engineer for this encounter. Scribed for JASSON Velasquez by Enid Brewer medical device engineer, on 05/25/2023 at 13:55 EST. Orders: Orders Comprehensive [place]. Panel Fast Today Z00.00 - Encounter for general adult medical examination without abnormal findings Lipid Panel Today Z00.00 - Encounter for general adult medical examination without abnormal findings TSH reflex Free T4 Today Z00.00 - Encounter for general adult medical examination without abnormal findings Complete Blood Count Auto Diff Today Z00.00 - Encounter for general adult medical examination without abnormal findings UA CC w/rflx Micro + Cult Today Z00.00 - Encounter for general adult medical examination without abnormal findings Medications: New ezetimibe 10 mg PO DAILY 30 tabs 2RF Coding Level of Care Code Est Pt Prev Care >65y(84526) Diagnoses Physical exam Z00.00 Screening PSA (prostate specific antigen) Z12.5
[2023-05-25 13:38] VITALS: BP 148/90; PULSE 96; O2SAT 97; BMI 31.8
== END 2023-05-25 14:14 | disposition home or self-care (01) ==
PROVIDERS: Visit Provider Nurse Practitioner Family
DX: Z00.00 Encounter for general adult medical examination without abnormal findings (principal); Z12.5 Encounter for screening for malignant neoplasm of prostate
CPT/HCPCS: 99397

== ENCOUNTER 2023-08-29 09:11 | Outpatient (AMB) | payer MEDICARE, OTHER, SELFPAY ==
--- NOTE | 2023-08-29 09:12 | A.OFFVIS_ITS ---
Intake Vital Signs 08/29/23 09:15 Height 6 ft Weight 228 lb 6.382 oz BMI 31.0 BP 150/70 H Blood Pressure Location Lt brachial Position Sitting Pulse 80 Pulse Source Pulse Oximeter Temp 97.3 F Temp Source Skin Pulse Oximetry (%) 97 Oxygen Delivery Method Room Air Intake Visit Reasons: Unspecified corneal ulcer, unspecified eye Intake Note: New patient referred internally for eye ulcer. Labs ordered to r/o vasculitis. 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 Adhesive Primer Required: No Accompanied by: Self / Same As Patient Allergies Penicillins [PCN] Allergy (Unknown, Verified 08/29/23 09:17) RASH glipizide Adverse Reaction (Unknown, Verified 08/29/23 09:17) Nausea/Loss of appetite metformin Adverse Reaction (Unknown, Verified 08/29/23 09:17) GI upset Medication List - Last Reconciled 08/29/23 by Bernard Montiel MD albuterol sulfate 90 mcg/actuation (Ventolin HFA) 2 puffs inhalation Q6H PRN aspirin 81 mg PO Q2D atorvastatin 80 mg PO Q2D@2100 flash glucose scanning reader (MeldiumStyle Ash 14 Day [place]) As directed flash glucose sensor (FreeStyle Ash 14 Day Sensor kit) As directed insulin aspart U-100 (Novolog FlexPen U-100 Insulin aspart) See Protocol sliding scale doses subcut TIDAC insulin degludec (Tresiba FlexTouch U-200 insulin) 32 units (0.16 mL) subcut BID levothyroxine 37.5 mcg (1/2 x 75 mcg) PO DAILY lisinopril 5 mg PO DAILY 90 days metoprolol tartrate 50 mg PO BID nitroglycerin 0.4 mg sublingual Q5M PRN 10 days ofloxacin 0.3% drps ophthalmic (eye) pen needle, diabetic BID with tresiba HPI HPI Comments History of Present Illness Details The patient presents for evaluation of possible rheumatic disease associated with the recent development of peripheral ulcerative keratitis. Sherry coffey does not recall any prior history of significant eye problems. About 6 weeks ago he noted the onset of a respiratory infection characterized by nasal congestion, runny nose, watery eyes, and occasionally productive cough. He had had similar symptoms he thinks about 6 months ago that resolved. This time he was treated with a short course of prednisone and albuterol inhaler for the cough and the URI symptoms did improve. However towards the end of the respiratory symptoms he developed pain in the left eye. This was not associated with any change in vision. He did not notice any redness in the eye but he says his thought the eye was getting red. He did see an eye doctor and the diagnosis of PUK was made. The patient does not have any history of significant inflammatory arthritis. He has experienced occasional low back pain in the in the past when he was more active. Now he is retired. He does have a history of coronary disease and required coronary bypass grafting a few years ago. He has a history of diabetes currently on insulin. He takes atorvastatin for hyperlipidemia. He was on Zetia but stopped it because it seemed it was started around the time he developed the eye problem. He also notes over the past few weeks he has been having loose stools. This is mostly notable in the mornings. There has been no abdominal pain or hematochezia noted. He does not have any history of prior bowel problems. He said he had Cologuard testing a few years ago that was negative. Presently he is on ofloxacin eyedrops. His ocular symptoms have resolved. [facility] Medical History (Updated 08/29/23 @ 09:56 by Bernard Montiel MD) Hx of Saucedo's palsy Peripheral ulcerative keratitis Vaccination refused by patient Other and unspecified hyperlipidemia Type 2 diabetes mellitus with unspecified complications Atherosclerotic cardiovascular disease Adult hypothyroidism HTN (hypertension) Non-ST elevation [place] (NSTEMI) Basal cell carcinoma Surgical History History of cardiac catheterization (~06/17/20) S/P CABG x 4 (~06/30/20) Family History (Updated 08/29/23 @ 09:21 by FELIX Leon) Father Stroke Substance use disorder Mother Breast cancer HTN (hypertension) Social History (Updated 08/29/23 @ 09:20 by FELIX Leon) Household Members: Spouse Housing: House Alcohol intake: current Alcohol intake frequency: a few times a week Alcohol type: wine Patient Tobacco Use Status: Never used Tobacco e-Cigarette/Vaping Use: Never Used service: No Current occupational status: retired Cognitive needs: No Hearing needs: No Vision needs: No Review of Systems Const Details: Negative for appetite change, weight change, fever, chills, malaise and fatigue Eyes Details: Left eye pain as noted above. Negative for vision change, dry eyes,headaches and dizziness ENT Details: Nasal congestion and rhinorrhea has improved. Negative for hearing change, tinnitus, oral ulcer, nose bleeds and oral dryness. Card Details: Negative chest pain, edema and syncope Resp Details: Only occasional dry cough at this point. He is not needing the inhaler anymore. Negative for SOB and wheezing GI Details: Two or 3 loose stools in the morning. Negative indigestion/heartburn, nausea, abdominal pain, bowel changes, constipation and bloody stool. Details: Negative for dysuria, hematuria, nocturia, decreased force/flow and genital discharge Skin/Breast Details: History of some skin cancers removed from the face. Presently negative for itching, rash, hives, Raynaud's symptoms, sun sensitivity, and new malignant lesions. Neuro Details: Last fall he was briefly hospitalized with some left facial weakness. This was determined to be due to Saucedo's palsy. He did have further vascular workup and he was found to have a 70% narrowing of the left carotid. Surgery was recommended but he declined for now. Negative for epilepsy, stroke, changes in speech, tingling and weakness Psych Details: Negative for anxiety, depression and stress Endo Details: Negative for polyuria and polydypsia Elan/Lymph Details: Negative for excessive bruising or bleeding. Physical Exam Vital Signs: Last Vital Signs Temp 97.3 F 08/29/23 09:15 Pulse 80 08/29/23 09:15 BP 150/70 H 08/29/23 09:15 Pulse Ox 97 08/29/23 09:15 Oxygen Delivery Method Room Air 08/29/23 09:15 BMI result Body Mass Index 31.0 APPEARANCE: Patient in no acute distress EYES no redness, pupils equal and reactive to light, eyelids normal EARS: External ear normal, canal clear and tympanic membrane normal. NOSE/SINUS: Airflow through both nares, no nasal discharge, no bleeding THROAT: Oral mucosa moist, no ulcerations NECK: No thyromegaly or masses, no adenopathy, trachea midline. HEART: Regulrar rhythm, S1-S2 heard, no murmurs, rubs or gallops. LUNG: Clear to percussion and auscultation ABD: Normal bowel sounds, no organomegaly, masses or tenderness. EXTREMITIES: No edema, no calf tenderness, normal peripheral pulses. NEURO: Oriented and alert x3. No focal weakness. Reflexes symmetric. Gait normal. SKIN: Evidence for some actinic damage on the forehead and scalp but no clear inflammatory or neoplastic lesions. Normal color and turgor of the fingertips JOINT EXAM:.?? Cervical Spine:.? Mild pain with lateral flexion at 10 degrees or rotation at 30 degrees to either side. There is some slight cervical muscle tenderness. Thoracic Spine:.? No scoliosis.? No tenderness on palpation. Lumbar Spine:.? Alignment normal.? Mild pain with flexion at 60 degrees but no tenderness. Chest Wall:.? No tenderness, swelling, increased warmth or erythema. Hands:.? Normal pain-free range of motion without tenderness, swelling, increased warmth or erythema. Able to make a full fist and has a good pin drafter stre ngth. Wrists:.? Normal pain-free range of motion without tenderness, swelling, increased warmth or erythema. Elbows:. Normal pain-free range of motion without tenderness, swelling, increased warmth or erythema. Shoulders:.?? Full range of motion without pain. No tenderness, weakness, swelling, increased warmth or erythema. Hips:.? Full range of motion without pain. Hip bursa:.? No tenderness. Knees:.?? Normal pain-free range of motion without tenderness, swelling, increased warmth or erythema.? There is no effusion or crepitation Ankles:.? Normal pain-free range of motion without tenderness, swelling, increased warmth or erythema. Feet:.? Normal pain-free range of motion with slight 1st MTP bony enlargement but no tenderness, soft tissue swelling, increased warmth or erythema. Tender points:? No tenderness to digital palpation at the occiput, trapezius, second rib, lateral epicondyle, knees, greater trochanter and gluteal area bilaterally. ? Results Reviewed Results Reviewed: Laboratory Tests 07/29/22 04/21/23 15:38 10:05 WBC 7.9 Hgb 16.2 ESR 2 Lyme Screen IgG & IgM <0.90 Assessment & Plan Assessment & Plan (1) Cervical osteoarthritis: Code(s): M47.812 - Spondylosis without myelopathy or radiculopathy, cervical region (2) Osteoarthritis of lumbar spine: Code(s): M47.816 - Spondylosis without myelopathy or radiculopathy, lumbar region (3) Peripheral ulcerative keratitis: Comment: left eye 06/2023 Code(s): H16.009 - Unspecified corneal ulcer, unspecified eye Plan The patient has been diagnosed with peripheral ulcerative keratitis. Currently he seems asymptomatic. The common association with this eye problem is rheumatoid arthritis but I do not see any evidence that he has RA presently. Additionally I do not see that he has any signs of another active inflammatory disease. The eye symptoms seen associated with a resolving viral URI. We will however check some blood work looking at inflammatory markers, ANCA.lupus ser ologies, RA serologies, and Sjogren's serologies. We will await of those tests. I will get back to him with the findings. At present I do not think he needs follow-up. Orders: Orders Complete Blood Count Auto Diff Today H16.009 - Unspecified corneal ulcer, unspecified eye Comprehensive Met. Panel Today H16.009 - Unspecified corneal ulcer, unspecified eye C Reactive Protein Today H16.009 - Unspecified corneal ulcer, unspecified eye Erythrocyte Sedimentation Rate Today H16.009 - Unspecified corneal ulcer, unspecified eye Sjogren's Antibodies Today H16.009 - Unspecified corneal ulcer, unspecified eye ANCA Vasculitides Today H16.009 - Unspecified corneal ulcer, unspecified eye STEPHANIE Reflex Titer and Pattern Today H16.009 - Unspecified corneal ulcer, unspecified eye Protein Creatinine Ratio, Ur Today H16.009 - Unspecified corneal ulcer, unspecified eye Coding Level of Care Code New Pt Level 3 (79096) Diagnoses Cervical osteoarthritis M47.812 Osteoarthritis of lumbar spine M47.816 Peripheral ulcerative keratitis H16.009
[2023-08-29 09:15] VITALS: BP 150/70; PULSE 80; TEMP 36.3; O2SAT 97; BMI 31.0
== END 2023-08-29 10:13 | disposition home or self-care (01) ==
PROVIDERS: PCP Nurse Practitioner Family; Referring Provider Nurse Practitioner Family; Visit Provider Internal Medicine Rheumatology
DX: M47.812 Spondylosis without myelopathy or radiculopathy, cervical region (principal); M47.816 Spondylosis without myelopathy or radiculopathy, lumbar region; H16.009 Unspecified corneal ulcer, unspecified eye
CPT/HCPCS: 99203

== ENCOUNTER → 2023-08-29 09:11 | Outpatient (BNVA) | payer MEDICARE, OTHER, SELFPAY | PROVIDERS: PCP Nurse Practitioner Family; Referring Provider Nurse Practitioner Family; Visit Provider Internal Medicine Rheumatology | DX: M47.812 Spondylosis without myelopathy or radiculopathy, cervical region (principal); M47.816 Spondylosis without myelopathy or radiculopathy, lumbar region; H16.009 Unspecified corneal ulcer, unspecified eye; Z11.59 Encounter for screening for other viral diseases; Z72.89 Other problems related to lifestyle | CPT/HCPCS: 36415; 80053; 82570; 84156; 85025; 85652; 86021; 86038; 86140; 86160; 86235; 86704; 86706; 86709; 86803; 87340; 99202 ==

== ENCOUNTER 2023-08-29 10:58 | Outpatient (REF) | payer MEDICARE, OTHER, SELFPAY ==
[2023-08-29 14:03] LABS: MANUAL DIFF FLAG NO
[2023-08-29 14:09] LABS: Basophils Absolute Auto 0.1 X10*3/uL (0.0-0.2); Basophils Percent Auto 0.5 % (0-2); Eosinophils Absolute Auto 0.1 X10*3/uL (0.0-0.4); Eosinophils Percent Auto 1.1 % (0-4); Hematocrit 50.4 % (42.0-52.0); Hemoglobin 16.7 g/dl (14.0-18.0); Imm Gran Abs Auto 0.06 X10*3/uL (0.00-0.03); Imm Gran Pct Auto 0.6 % (0.0-0.4); Mean Corpuscular HGB Conc 33.1 g/dl (31.0-36.0); Mean Corpuscular Hemoglobin 30.5 pg (27.0-33.0); Mean Platelet Volume 10.6 fL (9.4-12.4); Monocytes Absolute Auto 0.6 X10*3/uL (0.1-1.2); Monocytes Percent Auto 6.1 % (2-11); Neutrophils Absolute Auto 6.8 x10*3/uL (2.0-8.3); Neutrophils Percent Auto 70.7 % (45-73); Platelet Count 353 X10*3/uL (160-400); Red Blood Count 5.48 X10*6/uL (4.60-5.80); Red Cell Distribution Width 12.9 % (11.0-16.0); White Blood Count 9.7 X10*3/uL (4.8-10.8)
[2023-08-29 14:24] LABS: Alanine Aminotransferase 12 U/L (0-40); Albumin Level 4.2 g/dL (3.5-5.0); Alkaline Phosphatase 89 U/L (39-117); Anion Gap 13 (12-20); Aspartate Amino Transferase 14 U/L (5-37); Bilirubin Total 0.6 mg/dL (0.0-1.0); Blood Urea Nitrogen 14 mg/dL (9-16); C Reactive Protein 0.34 mg/dL (< or = 0.50); Calcium 9.7 mg/dL (8.4-10.2); Carbon Dioxide 25 mmol/L (22-29); Chloride 104 mmol/L (96-108); Estimated Glomerular Filt Rate > 60; Glucose Random 194 mg/dL (60-115); Potassium 4.3 mmol/L (3.3-5.1); Sodium 138 mmol/L (135-145); Total Protein 7.4 g/dL (6.5-8.0)
[2023-08-29 14:44] LABS: Creatinine Urine 108.29 mg/dL; Protein/Creatinine Ratio, Ur 0.23 (<0.2); Total Protein Urine Random 25 mg/dL (<12)
[2023-08-29 14:47] LABS: Erythrocyte Sedimentation Rate 3 MM/HR (0-15)
[2023-08-30 08:16] LABS: HBc Num1 0.19 S/CO (0.00-0.79); HBsAGNum1 0.39 S/CO (0.00-0.99); Hepatitis A Antibody IgM 0.17 Index (0-0.79); Hepatitis B Core Antibody Nonreactive (Nonreactive); Hepatitis B Surface Antigen Negative (Negative); ~HepC Num1 0.11 S/CO (0.00-0.79); ~Hepatitis A Antibody IgM Nonreactive (Nonreactive); ~Hepatitis B Surface Antibody NONREACTIVE (Nonreactive); ~Hepatitis C Antibody Nonreactive (Nonreactive)
[2023-08-31 11:43] LABS: Complement C3 139 mg/dL (82-185)
[2023-09-01 12:24] LABS: Anti Nuclear Antibody Screen NEGATIVE (NEGATIVE)
[2023-09-02 19:03] LABS: Antibody to SS-A Antigen <1.0 NEG AI (<1.0 NEG); Antibody to SS-B Antigen <1.0 NEG AI (<1.0 NEG); Myeloperoxidase Antibody 47.5 AI; Proteinase 3 PR3 Antibodies <1.0 AI
== END 2023-08-29 10:59 | disposition home or self-care (01) ==
LOC: HO.10HDL 10:58
PROVIDERS: Nurse Practitioner Family; Visit Provider Internal Medicine Rheumatology
DX: Z13.89 Encounter for screening for other disorder (principal)
CPT/HCPCS: 36415; 80053; 82570; 84156; 85025; 85652; 86021; 86038; 86140; 86160; 86235; 86704; 86706; 86709; 86803; 87340

== ENCOUNTER 2023-09-07 12:58 | Outpatient (AMB) | payer MEDICARE, OTHER, SELFPAY ==
--- NOTE | 2023-09-07 13:00 | A.OFFVIS_ITS ---
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 Required: No Accompanied by: Self / Same As Patient Allergies Penicillins [PCN] Allergy (Unknown, Verified 09/07/23 13:02) RASH glipizide Adverse Reaction (Unknown, Verified 09/07/23 13:02) Nausea/Loss of appetite metformin Adverse Reaction (Unknown, Verified 09/07/23 13:02) GI upset Medication List - Last Reconciled 09/07/23 by Melvin Johnson MD albuterol sulfate 90 mcg/actuation (Ventolin HFA) 2 puffs inhalation Q6H PRN aspirin 81 mg PO Q2D atorvastatin 80 mg PO Q2D@2100 ezetimibe (Zetia) 10 mg PO DAILY flash glucose scanning reader ([employer] Ash 14 Day [place]) As directed flash glucose sensor (AkellaStyle Ash 14 Day Sensor kit) As directed insulin aspart U-100 (Novolog FlexPen U-100 Insulin aspart) See Protocol sliding scale doses subcut TIDAC insulin degludec (Tresiba FlexTouch U-200 insulin) 32 units (0.16 mL) subcut BID levothyroxine 37.5 mcg (1/2 x 75 mcg) PO DAILY lisinopril 5 mg PO DAILY 90 days metoprolol tartrate 50 mg PO BID nitroglycerin 0.4 mg sublingual Q5M PRN 10 days ofloxacin 0.3% drps ophthalmic (eye) pen needle, diabetic BID with tresiba HPI HPI Comments History of Present Illness Details Bernard returns for follow-up regarding coronary artery disease. To recall, in 2019, he had anginal symptoms that led to further evaluation, leading to coronary artery bypass surgery. Otherwise, multiple cardiovascular risk factors including obesity, hypertension, diabetes, dyslipidemia. He states he is feeling well. Blood pressure is on the higher side but he states at home they are much lower and only the 120s. [facility] Medical History (Updated 09/04/23 @ 20:49 by Bernard Montiel MD) Hx of Saucedo's palsy Peripheral ulcerative keratitis Vaccination refused by patient Other and unspecified hyperlipidemia Type 2 diabetes mellitus with unspecified complications Atherosclerotic cardiovascular disease Adult hypothyroidism HTN (hypertension) Non-ST elevation [place] (NSTEMI) Basal cell carcinoma Surgical History History of cardiac catheterization (~06/17/20) S/P CABG x 4 (~06/30/20) Family History Father Stroke Substance use disorder Mother Breast cancer HTN (hypertension) Social History Household Members: Spouse Housing: House Alcohol intake: current Alcohol intake frequency: a few times a week Alcohol type: wine Patient Tobacco Use Status: Never used Tobacco e-Cigarette/Vaping Use: Never Used service: No Current occupational status: retired Cognitive needs: No Hearing needs: No Vision needs: No Review of Systems Const Denies weakness ENT Denies dizziness Card Denies chest pain, Denies chest pain with activity, Denies syncope, Denies rapid heart rate, Denies pedal edema, Denies edema, Denies leg edema, Denies lightheadedness, Denies palpitations, Denies dyspnea, Denies dyspnea on exertion and Denies orthopnea Resp Denies cough, Denies dyspnea and Denies dyspnea on exertion GI Denies hematochezia and Denies change in stool character Musc Denies abnormal gait, Denies muscle cramps, Denies muscle weakness, Denies numbness, Denies radiating pain into limb and Denies tingling Neuro Denies abnormal gait, Denies dizziness, Denies syncope, Denies numbness, Denies tingling and Denies weakness Endo Denies palpitations Physical Exam Vital Signs: Last Vital Signs Pulse 95 09/07/23 13:01 BP 152/74 H 09/07/23 13:01 BMI result Body Mass Index 31.0 Const General: comfortable and no acute distress Orientation/consciousness: patient oriented x3 HEENT Other: Unremarkable Head: Yes normal to inspection Neck Neck: Yes normal visual inspection Chest Chest palpation & inspection: normal inspection of the chest Resp Auscultation: clear to auscultation bilaterally Cardio Palpation: normal PMI Heart sounds: S1 normal heart sound present, S2 normal heart sound present, no gallops, no murmurs and no rubs GI Palpation (GI): Soft to palpation Back/Spine/Pelvis Other: unremarkable Skin General skin exam: no rashes or lesions noted Neuro General: patient oriented x3 Extrem General: Yes normal to inspection Psych Mental Status: mental status grossly normal Assessment & Plan Assessment & Plan (1) Atherosclerotic cardiovascular disease: Code(s): I25.10 - Atherosclerotic heart disease of [place] coronary artery without angina pectoris Plan: Status post CABG from 2020. Stable. (2) Essential hypertension: Code(s): I10 - Essential (primary) hypertension Plan: Blood pressure on the higher side. Discussed about this extensively and patient repeatedly states that at home the blood pressures are much lower and only in the 120s or so. He never apparently gets these types of numbers at home. A ccording to him, happens only when he comes to doctor's visits. Hence will continue to monitor. (3) Type 2 diabetes mellitus with unspecified complications: Code(s): E11.8 - Type 2 diabetes mellitus with unspecified complications Plan: He is on insulin. In the past, hemoglobin A1c was more than 10 but per patient, most recently 8.6%. Still suboptimal but better than before. (4) Other and unspecified hyperlipidemia: Code(s): E78.5 - Hyperlipidemia, unspecified Plan: LDL is going up and not clear why. Diet might play a role. He states his PCP as added Zetia. That seems reasonable. If cholesterol is still high, then consider Repatha. Plan Follow-up in 6 months. In the interim, he will continue to monitor his own blo od pressures and contact us as needed. Coding Level of Care Code Est Pt Level 4 (56372) Diagnoses Atherosclerotic cardiovascular disease I25.10 Essential hypertension I10 Type 2 diabetes mellitus with unspecified complications E11.8 Other and unspecified hyperlipidemia E78.5
[2023-09-07 13:01] VITALS: BP 152/74; PULSE 95; BMI 31.0
== END 2023-09-07 13:22 | disposition home or self-care (01) ==
PROVIDERS: Visit Provider Internal Medicine
DX: I25.10 Atherosclerotic heart disease of native coronary artery without angina pectoris (principal); I10 Essential (primary) hypertension; E11.8 Type 2 diabetes mellitus with unspecified complications; E78.5 Hyperlipidemia, unspecified
CPT/HCPCS: 93010; 99214

== ENCOUNTER → 2023-09-07 12:58 | Outpatient (BNVA) | payer MEDICARE, OTHER, SELFPAY | PROVIDERS: Visit Provider Internal Medicine | DX: I25.10 Atherosclerotic heart disease of native coronary artery without angina pectoris (principal); I10 Essential (primary) hypertension; E78.5 Hyperlipidemia, unspecified; E11.8 Type 2 diabetes mellitus with unspecified complications | CPT/HCPCS: 93005; 99212 ==

== ENCOUNTER 2023-10-03 10:19 | Outpatient (REF) | payer MEDICARE, OTHER, SELFPAY ==
--- NOTE | ~2023-10-03 | XR_ITS ---
EXAMINATION: XR CHEST 2 VIEW CLINICAL INFORMATION: Abnormal findings in serum COMPARISON: 06/25/2020 TECHNIQUE: PA and lateral views of the chest obtained. FINDINGS: The lungs are clear. There are no pleural effusions. Post sternotomy and CABG changes are evident. The cardiomediastinal silhouette is otherwise unremarkable.. XR/XR chest 2V IMPRESSION: No acute cardiopulmonary disease.
[2023-10-03 14:05] LABS: C Reactive Protein 0.36 mg/dL (< or = 0.50); Estimated Glomerular Filt Rate > 60
[2023-10-03 14:15] LABS: Erythrocyte Sedimentation Rate 4 MM/HR (0-15)
[2023-10-03 14:38] LABS: Creatinine Urine 90.42 mg/dL; Protein/Creatinine Ratio, Ur 0.13 (<0.2); Total Protein Urine Random 12 mg/dL (<12)
== END 2023-10-03 10:20 | disposition home or self-care (01) ==
LOC: HO.HMGCX 10:19
PROVIDERS: PCP Nurse Practitioner Family; Visit Provider Internal Medicine Rheumatology
DX: R76.8 Other specified abnormal immunological findings in serum (principal)
CPT/HCPCS: 36415; 71046; 82565; 82570; 84156; 85652; 86140

== ENCOUNTER 2023-10-09 11:02 | Outpatient (AMB) | payer MEDICARE, OTHER, SELFPAY ==
[2023-10-09 11:16] VITALS: BP 144/76; PULSE 108; BMI 31.0
--- NOTE | 2023-10-09 11:16 | MHC.OFFVIS ---
Intake Vital Signs 10/09/23 11:16 Height 6 ft Weight 228 lb 9.91 oz BMI 31.0 BP 144/76 H Blood Pressure Location Lt brachial Position Sitting Pulse 108 H Pulse Source Pulse Oximeter Intake Visit Reasons: Unspecified corneal ulcer, unspecified eye Intake Note: Patient presents today to follow up on test results and corneal ulcer. Last seen by Schu on 08/29/23. Ada Accommodation Consultant Required: No Accompanied by: Self / Same As Patient Allergies Penicillins [PCN] Allergy (Unknown, Verified 10/09/23 11:17) RASH glipizide Adverse Reaction (Unknown, Verified 10/09/23 11:17) Nausea/Loss of appetite metformin Adverse Reaction (Unknown, Verified 10/09/23 11:17) GI upset Medication List - Last Reconciled 10/09/23 by Bernard Montiel MD albuterol sulfate 90 mcg/actuation (Ventolin HFA) 2 puffs inhalation Q6H PRN aspirin 81 mg PO Q2D atorvastatin 80 mg PO Q2D@2100 ezetimibe (Zetia) 10 mg PO DAILY flash glucose scanning reader ([employer] Ash 14 Day [place]) As directed flash glucose sensor ([employer] Ash 14 Day Sensor kit) As directed fluorometholone 0.1% drps ophthalmic (eye) insulin aspart U-100 (Novolog FlexPen U-100 Insulin aspart) See Protocol sliding scale doses subcut TIDAC insulin degludec (Tresiba FlexTouch U-200 insulin) 32 units (0.16 mL) subcut BID levothyroxine 37.5 mcg (1/2 x 75 mcg) PO DAILY lisinopril 5 mg PO DAILY 90 days metoprolol tartrate 50 mg PO BID nitroglycerin 0.4 mg sublingual Q5M PRN 10 days pen needle, diabetic BID with tresiba HPI HPI Comments History of Present Illness Details The patient returns for evaluation of his peripheral ulcerative keratitis. He says that condition is improving. He is off the antibiotic drops and is taking a tapering dose of corticosteroid drops. He does not have any symptoms with respect to the eye currently. He recently saw the eye doctor. He had some coughing previously that has subsided. He does not have any skin rashes, oral ulcers, shortness of breath, chest pain or abdominal pain. He had some diarrhea that seem to coincide with his respiratory symptoms before the onset of the eye problem but that has subsided. [facility] Medical History (Updated 09/04/23 @ 20:49 by Bernard Montiel MD) Hx of Saucedo's palsy Peripheral ulcerative keratitis Vaccination refused by patient Other and unspecified hyperlipidemia Type 2 diabetes mellitus with unspecified complications Atherosclerotic cardiovascular disease Adult hypothyroidism HTN (hypertension) Non-ST elevation [place] (NSTEMI) Basal cell carcinoma Surgical History History of cardiac catheterization (~06/17/20) S/P CABG x 4 (~06/30/20) Family History Father Stroke Substance use disorder Mother Breast cancer HTN (hypertension) Social History Household Members: Spouse Housing: House Alcohol intake: current Alcohol intake frequency: a few times a week Alcohol type: wine Patient Tobacco Use Status: Never used Tobacco e-Cigarette/Vaping Use: Never Used service: No Current occupational status: retired Cognitive needs: No Hearing needs: No Vision needs: No Review of Systems Const Details: Negative for appetite change, weight change, fever, chills, malaise and fatigue Eyes Details: Negative for vision change, dry eyes,headaches and dizziness ENT Details: Negative for hearing change, tinnitus, oral ulcer, nose bleeds and oral dryness. Card Details: Negative chest pain, edema and syncope Resp Details: Negative for SOB, cough and wheezing GI Details: Occasional gassiness. Negative indigestion/heartburn, nausea, abdominal pain, bowel changes, diarrhea, constipation and bloody stool. Skin/Breast Details: Negative for itching, rash, hives, Raynaud's symptoms, sun sensitivity. He sees the assistant research scientist annually following up on a do basal cell carcinoma. Neuro Details: Negative for epilepsy, palsy, stroke, changes in speech, tingling and weakness Endo Details: Negative for polyuria and polydypsia Elan/Lymph Details: Negative for excessive bruising or bleeding. Physical Exam Vital Signs: Last Vital Signs Pulse 108 H 10/09/23 11:16 BP 144/76 H 10/09/23 11:16 BMI result Body Mass Index 31.0 APPEARANCE: Patient in no acute distress EYES no redness, pupils equal and reactive to light, eyelids normal EARS: External ear normal, canal clear and tympanic membrane normal. NOSE/SINUS: Airflow through both nares, no nasal discharge, no bleeding THROAT: Oral mucosa moist, no ulcerations NECK: No thyromegaly or masses, no adenopathy, trachea midline. HEART: Regulrar rhythm, S1-S2 heard, no murmurs, rubs or gallops. LUNG: Clear to percussion and auscultation ABD: Normal bowel sounds, no organomegaly, masses or tenderness. EXTREMITIES: No edema, no calf tenderness, normal peripheral pulses. NEURO: Oriented and alert x3. No focal weakness. Reflexes symmetric. Gait normal. SKIN: Evidence for some actinic damage on the forehead and scalp but no clear inflammatory or neoplastic lesions. Normal color and turgor of the fingertips JOINT EXAM:.?? Cervical Spine:.? Mild pain with lateral flexion at 10 degrees or rotation at 30 degrees to either side. There is some slight cervical muscle tenderness. Thoracic Spine:.? No scoliosis.? No tenderness on palpation. Lumbar Spine:.? Alignment normal.? Mild pain with flexion at 60 degrees but no tenderness. Chest Wall:.? No tenderness, swelling, increased warmth or erythema. Hands:.? Normal pain-free range of motion without tenderness, swelling, increased warmth or erythema. 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 Wrists:.? Normal pain-free range of motion without tenderness, swelling, increased warmth or erythema. Elbows:. Normal pain-free range of motion without tenderness, swelling, increased warmth or erythema. Shoulders:.?? Full range of motion without pain. No tenderness, weakness, swelling, increased warmth or erythema. Hips:.? Full range of motion without pain. Hip bursa:.? No tenderness. Knees:.?? Normal pain-free range of motion without tenderness, swelling, increased warmth or erythema.? There is no effusion or crepitation Ankles:.? Normal pain-free range of motion without tenderness, swelling, increased warmth or erythema. Feet:? Normal pain-free range of motion with slight 1st MTP bony enlargement but no tenderness, soft tissue swelling, increased warmth or erythema. Results Reviewed Results Reviewed: Laboratory Tests 08/29/23 08/29/23 08/29/23 11:05 11:05 11:05 WBC 9.7 Hgb 16.7 ESR Creatinine C-Reactive Protein STEPHANIE Screen NEGATIVE Proteinase 3 (PR3) Ab <1.0 Myeloperoxidase Ab 47.5 H SS-A/Ro Antibody <1.0 NEG SS-B/La Antibody <1.0 NEG 10/03/23 10/03/23 10:33 10:33 WBC Hgb ESR 4 Creatinine 0.85 C-Reactive Protein 0.36 STEPHANIE Screen Proteinase 3 (PR3) Ab Myeloperoxidase Ab SS-A/Ro Antibody SS-B/La Antibody [facility] [place] [id number] [address] [place] [id number] XRay Report Signed Patient: Bernard Rosenbaum MR#: [id number] : 1955 Acct:[id number] Age/Sex: 68 / M ADM Date: 10/03/23 Ordering Physician: Bernard Montiel MD Date of Service: 10/03/23 Procedure(s): XR chest 2V Accession Number(s): [id number] cc: Cash [facility]; Bernard Montiel MD~ EXAMINATION: XR CHEST 2 VIEW CLINICAL INFORMATION: Abnormal findings in serum COMPARISON: 06/25/2020 TECHNIQUE: PA and lateral views of the chest obtained. FINDINGS: The lungs are clear. There are no pleural effusions. Post sternotomy and CABG changes are evident. The cardiomediastinal silhouette is otherwise unremarkable.. XR/XR chest 2V IMPRESSION: No acute cardiopulmonary disease. 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 He does have a positive anti MPO antibody which is associated with microscopic polyangiitis. Again I do not see any signs of that disease presently. I suggested follow-up in 6 months. If he has progressive respiratory symptoms or joint pain and swelling he should call us to be re-evaluated sooner. 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
== END 2023-10-09 11:40 | disposition home or self-care (01) ==
PROVIDERS: PCP Nurse Practitioner Family; Visit Provider Internal Medicine Rheumatology
DX: H16.009 Unspecified corneal ulcer, unspecified eye (principal); R76.8 Other specified abnormal immunological findings in serum
CPT/HCPCS: 99213

== ENCOUNTER → 2023-10-09 11:02 | Outpatient (BNVA) | payer MEDICARE, OTHER, SELFPAY | PROVIDERS: PCP Nurse Practitioner Family; Visit Provider Internal Medicine Rheumatology | DX: H16.009 Unspecified corneal ulcer, unspecified eye (principal); R76.8 Other specified abnormal immunological findings in serum | CPT/HCPCS: 99212 ==

== ENCOUNTER 2023-11-06 09:35 | Outpatient (AMB) | payer MEDICARE, OTHER, SELFPAY ==
--- NOTE | 2023-11-06 09:36 | MHC.PC.OV ---
Vital Signs 11/06/23 09:40 11/06/23 10:17 Height 6 ft Weight 229 lb BMI 31.1 BP 140/82 H 160/80 H Blood Pressure Location Rt brachial Rt brachial Position Sitting Sitting Pulse 110 H Pulse Source Pulse Oximeter Pulse Oximetry (%) 96 Oxygen Delivery Method Room Air Intake Visit Reasons: 5m follow up Intake Note: Patient here for diabetes follow up. Allergies Penicillins [PCN] Allergy (Unknown, Verified 11/06/23 09:57) RASH glipizide Adverse Reaction (Unknown, Verified 11/06/23 09:57) Nausea/Loss of appetite metformin Adverse Reaction (Unknown, Verified 11/06/23 09:57) GI upset Medication List - Last Reconciled 11/06/23 by MYRA Nguyễn- albuterol sulfate 90 mcg/actuation (Ventolin HFA) 2 puffs inhalation Q6H PRN aspirin 81 mg PO Q2D atorvastatin 80 mg PO Q2D@2100 ezetimibe (Zetia) 10 mg PO DAILY flash glucose scanning reader ([employer] Ash 14 Day [place]) As directed flash glucose sensor ([employer] Ash 14 Day Sensor kit) As directed fluorometholone 0.1% drps ophthalmic (eye) insulin aspart U-100 (Novolog FlexPen U-100 Insulin aspart) See Protocol sliding scale doses subcut TIDAC insulin degludec (Tresiba FlexTouch U-200 insulin) 40 units subcut DAILY levothyroxine 37.5 mcg (1/2 x 75 mcg) PO DAILY lisinopril 5 mg PO DAILY 90 days metoprolol tartrate 50 mg PO BID nitroglycerin 0.4 mg sublingual Q5M PRN 10 days pen needle, diabetic BID with tresiba Tobacco use date assessed: 11/06/23 Fall risk assessment: No Falls in past year Last assessed Fall Risk: 11/06/23 Dental Screening Dental Screen Date: 11/06/23 Did you have a dental visit in the last 12 months?: Yes Did you have a dental problem in the last 6 months where you did not have access to dental care?: No Was dental information given to patient?: Patient has dentist HPI 5m follow up HPI Details Pt is a diabetic, on an DEBBI and a statin. A1C in office today is 9.7. Microalbumin is up to date. Denies polyuria, polydipsia, reports intermittent neuropathy to toes. Pt denies any signs and symptoms of hypoglycemia and does know how to correct it. Pt will be following up with endo and would rather not change any meds currently. Refuses pneumonia vaccine. HTN: Blood pressure is managed with lisinopril 5mg and metoprolol 50mg bid. BP is elevated today, pt reports not taking his meds yet this morning. Will increase lisinopril to 10mg. Denies chest pain, shortness of breath, headache, dizziness, and blurred vision. Encouraged pt to have labs drawn. Pt follows up with cardiology. [facility] Medical History Hx of Saucedo's palsy Peripheral ulcerative keratitis Vaccination refused by patient Other and unspecified hyperlipidemia Type 2 diabetes mellitus with unspecified complications Atherosclerotic cardiovascular disease Adult hypothyroidism HTN (hypertension) Non-ST elevation [place] (NSTEMI) Basal cell carcinoma Surgical History History of cardiac catheterization (~06/17/20) S/P CABG x 4 (~06/30/20) Family History Father Stroke Substance use disorder Mother Breast cancer HTN (hypertension) Social History Household Members: Spouse Housing: House Alcohol intake: current Alcohol intake frequency: a few times a week Alcohol type: wine Patient Tobacco Use Status: Never used Tobacco e-Cigarette/Vaping Use: Never Used service: No Current occupational status: retired Cognitive needs: No Hearing needs: No Vision needs: No Questionnaire PHQ-9 Over the last 2 weeks, how often have you been bothered by any of the following problems? 1. Little interest or pleasure in doing things: not at all 2. Feeling down, depressed, or hopeless: not at all 3. Trouble falling or staying asleep, or sleeping too much: not at all 4. Feeling tired or having little energy: several days 5. Poor appetite or overeating: several days 6. Feeling bad about yourself - or that you are a failure or have let yourself or your family down: not at all 7. Trouble concentrating on things, such as reading the newspaper or watching television: not at all 8. Moving or speaking so slowly that other people could have noticed. Or the opposite - being so fidgety or restless that you have been moving around a lot more than usual: not at all 9. Thoughts that you would be better off or of hurting yourself in some way: not at all Total score: 2 Depression Screening Interpretation: Negative Depression Screening Done: Yes 21579 - PHQ-9 Billing: Yes Source: Developed by Drs. J Luis Enriquez, Linda Vance, Lior Duran and colleagues, with an educational amina from [employer]. Thrive Questionnaire Date Thrive assessed: 11/06/23 I am a: Patient What is your living situation today?: I have a steady place to live Within the past 12 months, did the food you bought not last and you didn't have the money to get more?: Never true Within the past 12 months, did you worry whether your food would run out before you got money to buy more?: Never true Do you have trouble paying for medicines?: No Do you have trouble getting transportation to medical appointments?: No Do you have trouble paying your heating and electricity bill?: No Do you have trouble taking care of your child, family member or friend?: No Do you have trouble with day-to-day activities such as bathing, preparing meals, shopping, managing finances, etc.?: No Are you currently unemployed and looking for a job?: No Are you interested in more education?: No AUDIT C Alcohol Use Questionnaire (AUDIT-C) 1. How often do you have a drink containing alcohol?: Monthly or less 2. How many drinks containing alcohol do you have on a typical day when you are drinking?: 1 or 2 3. How often do you have six or more drinks on one occasion?: Never Total Score: 1 Score Reviewed/Action Taken: No JANNA-7 AMB Questionnaire JANNA-7 Date JANNA - 7 assessed: 02/01/23 Feeling nervous, anxious, or on edge: 1 = Several days Not being able to stop or control worryin = Not at all Worrying too much about different things: 1 = Several days Trouble relaxin = Not at all Being so restless that it is hard to sit still: 0 = Not at all Becoming easily annoyed or irritable: 1 = Several days Feeling afraid as if something awful might happen: 0 = Not at all Total JANNA-7 score (0-4 normal; 5-9 mild; 10-14 moderate; 15-21 severe): 3 Source: Developed by Drs. J Luis Enriquez, Linda Vance, Lior Duran and colleagues, with an educational amina from [employer]. JANNA-7 Assessment Billing JANNA-7 Assessment Tool: JANNA-7 Assessment 01864 Review of Systems Const Reports as per HPI Physical exam (Primary Care) Vital Signs: Last Vital Signs Pulse 110 H 11/06/23 09:40 BP 140/82 H 11/06/23 09:40 Pulse Ox 96 11/06/23 09:40 Oxygen Delivery Method Room Air 11/06/23 09:40 BMI result Body Mass Index 31.1 Tobacco/Smoking Status: Tobacco use Status Tobacco use date assessed 11/06/23 11/06/23 09:43 Patient Tobacco Use Status Never used Tobacco 11/06/23 09:38 e-Cigarette/Vaping Use Never Used 11/06/23 09:38 Depression Screening Interpretation: Negative Thrive Assessment: Date of Thrive Assessment Date Thrive assessed 01/26/23 11/06/23 09:38 Const General: cooperative Nutritional Appearance: obese Orientation/consciousness: patient oriented x3 Resp Effort & Inspection: normal respiratory effort Auscultation: clear to auscultation bilaterally Cardio Rate: tachycardic Rhythm: regular rhythm Heart sounds: S1 normal heart sound present and S2 normal heart sound present Neuro General: patient oriented x3 Extrem Other: bilat feet: + sensation with use of monofilament Psych Appearance: grossly normal Mental Status: mental status grossly normal Speech and movement: Normal speech and movement present Affect: normal affect Attitude: cooperative Thought process: Normal thought process present Thought content: Normal thought content present Insight: Good insight present (Psych) Judgement: Good judgement present (Psych) Results AMB Hemoglobin A1c AMB Hemoglobin A1c 9.7 % Last Edit by LACHELLE Camp on 11/06/23 09:57 Results Reviewed Results Reviewed: Laboratory Last Values Hgb A1c (Clinic) 9.7 % (4.0-6.0) H 11/06/23 09:56 Assessment and Plan Assessment & Plan (1) Diabetes: Code(s): E11.9 - Type 2 diabetes mellitus without complications Plan: elevated A1c. 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 (2) Tachycardia: Code(s): R00.0 - Tachycardia, unspecified Plan: EKG ordered, no acute changes noted Plan The patient agreed to the use of a medical sales consultant for this encounter. Scribed for JASSON Velasquez by kavin Lerma scribe, on 11/06/2023 at 09:50 EST. Orders: Orders AMB Hemoglobin A1c Today E11.8 - Type 2 diabetes mellitus with unspecified complications AMB EKG-In Office Today R00.0 - Tachycardia, unspecified Medications: Changed From lisinopril 5 mg PO DAILY 90 days 90 tabs 1RF To lisinopril 10 mg PO DAILY 90 tabs 1RF 90 days Coding Level of Care Code Est Pt Level 3 (46176) Diagnoses Diabetes E11.9 Tachycardia R00.0 Additional Codes JANNA-7 Assessment Billing - JANNA-7 Assessment Tool: JANNA-7 Assessment 21554 ([id number])
[2023-11-06 09:40] VITALS: BP 140/82; PULSE 110; O2SAT 96; BMI 31.1
[2023-11-06 10:17] VITALS: BP 160/80
== END 2023-11-06 11:14 | disposition home or self-care (01) ==
PROVIDERS: PCP Nurse Practitioner Family; Visit Provider Nurse Practitioner Family
DX: E11.9 Type 2 diabetes mellitus without complications (principal); R00.0 Tachycardia, unspecified; E11.8 Type 2 diabetes mellitus with unspecified complications
CPT/HCPCS: 83036; 99213

== ENCOUNTER 2023-12-04 15:08 | Outpatient (AMB) | payer MEDICARE, OTHER, SELFPAY ==
--- NOTE | 2023-12-04 15:30 | A.OFFVIS_ITS ---
Intake Intake Visit Reasons: follow up/US/PSA/litholink(Litho set) Intake Note: Patient presents today for a follow-up Meds- None Allergies to Antibiotic- Penicillins Blood Thinner- Aspirin Tobacco Educator Required: No Accompanied by: Self / Same As Patient Allergies Penicillins [PCN] Allergy (Unknown, Verified 12/04/23 15:31) RASH glipizide Adverse Reaction (Unknown, Verified 12/04/23 15:31) Nausea/Loss of appetite metformin Adverse Reaction (Unknown, Verified 12/04/23 15:31) GI upset HPI HPI Comments History of Present Illness Details 12/04/23--Bernard is a 67-year-old male who presents to the office for follow-up for kidney stones. PMH significant for DM and quadruple bypass done at [facility]. 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 He states since he was last evaluated, he passed about 3 stones. He is interested in meds for erectile dysfunction and has put in a call to his rating specialist for clearance. He states he is voiding with a good flow, denies dysuria or gross hematuria. Discussed 24 hr urine - urine oxalate 55, urine sodium 209 Discussed low oxalate diet, pt states he eats alot of nuts and green leafy vegetables. PSA - 04/21/23-- 0.66 Review of chart: AUA symptom score: 3. PSA results ?10/17/22?0.60. Plan: Hyperoxaluria. 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 [facility] Medical History Hx of Saucedo's palsy Peripheral ulcerative keratitis Vaccination refused by patient Other and unspecified hyperlipidemia Type 2 diabetes mellitus with unspecified complications Atherosclerotic cardiovascular disease Adult hypothyroidism HTN (hypertension) Non-ST elevation [place] (NSTEMI) Basal cell carcinoma Surgical History History of cardiac catheterization (~06/17/20) S/P CABG x 4 (~06/30/20) Family History Father Stroke Substance use disorder Mother Breast cancer HTN (hypertension) Social History Household Members: Spouse Housing: House Alcohol intake: current Alcohol intake frequency: a few times a week Alcohol type: wine Patient Tobacco Use Status: Never used Tobacco e-Cigarette/Vaping Use: Never Used service: No Current occupational status: retired Cognitive needs: No Hearing needs: No Vision needs: No Results AMB Urinalysis, Automated UA Leukoctes 0 Lazaro/uL Last Edit by Anu Coyle CMA on 12/04/23 15 :36 UA Nitrite Negative Last Edit by Anu Coyle CMA on 12/04/23 15: 36 UA Urobilinogen 0.2 mg/dL Last Edit by Anu Coyle CMA on 4 15:36 UA Protein 15 mg/dL Last Edit by Anu Coyle CMA on 12/04/23 15:3 6 UA pH 6.0 Last Edit by Anu Coyle CMA on 12/04/23 15:36 UA Blood 0 Conor/uL Last Edit by Anu Coyle CMA on 12/04/23 15:36 UA Specific [place] 1.025 Last Edit by Anu Coyle CMA on 15:36 UA Ketone Negative Last Edit by Anu Coyle CMA on 12/04/23 15:3 6 UA Bilirubin 0 mg/dL Last Edit by Anu Coyle CMA on 12/04/23 15: 36 UA Glucose 0 mg/dL Last Edit by Anu Coyle CMA on 12/04/23 15:36 Results Reviewed Results Reviewed: Laboratory Last Values Urine pH (Auto) 6.0 12/04/23 15:30 Specific [place] (Auto) 1.025 12/04/23 15:30 Urine Protein (Auto) 15 mg/dL 12/04/23 15:30 Glucose (UA)(Auto) 0 mg/dL 12/04/23 15:30 Urine Ketones (Auto) Negative 12/04/23 15:30 Urine Blood (Auto) 0 Conor/uL 12/04/23 15:30 Urine Nitrite (Auto) Negative 12/04/23 15:30 Urine Bilirubin (Auto) 0 mg/dL 12/04/23 15:30 Urine Urobilinogen (Auto) 0.2 mg/dL 12/04/23 15:30 Leukocyte Esterase (Auto) 0 Lazaro/uL 12/04/23 15:30 Assessment & Plan Assessment & Plan (1) Bilateral kidney stones: Code(s): N20.0 - Calculus of kidney (2) Screening PSA (prostate specific antigen): Code(s): Z12.5 - Encounter for screening for malignant neoplasm of prostate (3) Erectile disorder: Code(s): N52.9 - Male erectile dysfunction, unspecified Plan Hyperoxaluria. 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 Orders: Orders AMB Urinalysis Automated 12/04/23 R33.9 - Retention of urine, unspecified PSA,Total (Free>4and<10) 12/04/23 Z12.5 - Encounter for screening for malignant neoplasm of prostate Prostate Specific Antigen 11/06/23 N40.1 - Benign prostatic hyperplasia with lower urinary tract symptoms US renal BI 6 Months N20.0 - Calculus of kidney Medications: New pyridoxine (vitamin B6) 100 mg PO DAILY 90 tabs 3RF Patient Instructions: The patient had an opportunity to ask questions regarding treatment plan. All questions were answered. Laboratory studies and physical exam results were discussed and reviewed in detail. No major barriers to understanding were identified. The patient expressed understanding and agreement with the above treatment plan. The patient is aware they should contact our office by phone for worsening of their current condition or the appearance of new symptoms. Compliance is encouraged with any medications and followup testing that is ordered. It is a privilege to be allowed the opportunity to participate in the urologic care of your patient. If you have any questions or concerns regarding treatment for the above conditions please do not hesitate to contact me. The office telephone contact is [phone]. This note is constructed in part using voice recognition software. While every effort has been made to ensure accuracy freelance interpreter/translator errors may have been included. Yours sincerely, David Garrido MD Coding Level of Care Code Est Pt Level 4 (98586) Diagnoses Bilateral kidney stones N20.0 Screening PSA (prostate specific antigen) Z12.5 Erectile disorder N52.9
== END 2023-12-04 16:21 | disposition home or self-care (01) ==
PROVIDERS: Visit Provider Urology
DX: N20.0 Calculus of kidney (principal); Z12.5 Encounter for screening for malignant neoplasm of prostate; N52.9 Male erectile dysfunction, unspecified
CPT/HCPCS: 99214

== ENCOUNTER → 2023-12-04 15:08 | Outpatient (BNVA) | payer MEDICARE, OTHER, SELFPAY | PROVIDERS: Visit Provider Urology | DX: N20.0 Calculus of kidney (principal); N52.9 Male erectile dysfunction, unspecified | CPT/HCPCS: 81003; 99212 ==

== ENCOUNTER 2024-03-06 12:28 | Outpatient (AMB) | payer MEDICARE, OTHER, SELFPAY ==
[2024-03-06 12:31] VITALS: BP 120/64; PULSE 94; O2SAT 97; BMI 30.7
--- NOTE | 2024-03-06 12:31 | MHC.OFFVIS ---
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 Physician Required: No Accompanied by: Self / Same As Patient Allergies Penicillins [PCN] Allergy (Unknown, Verified 12/04/23 15:31) RASH glipizide Adverse Reaction (Unknown, Verified 12/04/23 15:31) Nausea/Loss of appetite metformin Adverse Reaction (Unknown, Verified 12/04/23 15:31) GI upset Medication List - Last Reconciled 03/06/24 by Melvin Johnson MD albuterol sulfate 90 mcg/actuation (Ventolin HFA) 2 puffs inhalation Q6H PRN aspirin 81 mg PO Q2D atorvastatin 80 mg PO Q2D@2100 flash glucose scanning reader ([employer] Ash 14 Day [place]) As directed flash glucose sensor ([employer] Ash 14 Day Sensor kit) As directed fluorometholone 0.1% drps ophthalmic (eye) insulin aspart U-100 (Novolog FlexPen U-100 Insulin aspart) See Protocol sliding scale doses subcut TIDAC insulin degludec (Tresiba FlexTouch U-200 insulin) 40 units subcut DAILY levothyroxine 37.5 mcg (1/2 x 75 mcg) PO DAILY lisinopril 10 mg PO DAILY 90 days nitroglycerin 0.4 mg sublingual Q5M PRN 10 days pen needle, diabetic BID with tresiba pyridoxine (vitamin B6) 100 mg PO DAILY vardenafil 20 mg orally 2 times per week PRN; Take up to 2 times a week. DO NOT use within 4 hours of alpha richard medications. DO NOT use within 48 hours of nitroglycerin medication. HPI Comments Details: Bernard returns for follow-up regarding coronary artery disease. To recall, in 2019, he had anginal symptoms that led to further evaluation, leading to coronary artery bypass surgery. Otherwise, multiple cardiovascular risk factors including obesity, hypertension, diabetes, dyslipidemia. He states he is feeling well. Overall, no new issues since last seen. [facility] Medical History Hx of Saucedo's palsy Peripheral ulcerative keratitis Vaccination refused by patient Other and unspecified hyperlipidemia Type 2 diabetes mellitus with unspecified complications Atherosclerotic cardiovascular disease Adult hypothyroidism HTN (hypertension) Non-ST elevation [place] (NSTEMI) Basal cell carcinoma Surgical History History of cardiac catheterization (~06/17/20) S/P CABG x 4 (~06/30/20) Family History Father Stroke Substance use disorder Mother Breast cancer HTN (hypertension) Social History Household Members: Spouse Housing: House Alcohol intake: current Alcohol intake frequency: a few times a week Alcohol type: wine Patient Tobacco Use Status: Never used Tobacco e-Cigarette/Vaping Use: Never Used service: No Current occupational status: retired Cognitive needs: No Hearing needs: No Vision needs: No Review of Systems Const Denies chills, Denies fatigue, Denies fever(s), Denies frequent falls, Denies weakness, Denies weight gain and Denies weight loss ENT Denies dizziness Card Denies chest pain, Denies leg edema, Denies lightheadedness, Denies palpitations, Denies dyspnea and Denies dyspnea on exertion Resp Denies cough, Denies dyspnea and Denies dyspnea on exertion GI Denies hematochezia Musc Denies abnormal gait, Denies muscle weakness, Denies numbness, Denies radiating pain into limb and Denies tingling Neuro Denies abnormal gait, Denies dizziness, Denies frequent falls, Denies numbness, Denies tingling and Denies weakness Endo Denies fatigue and Denies palpitations Physical Exam Vital Signs: Last Vital Signs Pulse 94 03/06/24 12:31 BP 120/64 03/06/24 12:31 Pulse Ox 97 03/06/24 12:31 BMI result Body Mass Index 30.7 Const General: comfortable and no acute distress Orientation/consciousness: patient oriented x3 HEENT Other: Unremarkable Head: Yes normal to inspection Neck Neck: Yes normal visual inspection Chest Chest palpation & inspection: normal inspection of the chest Resp Auscultation: clear to auscultation bilaterally Cardio Palpation: normal PMI Heart sounds: S1 normal heart sound present, S2 normal heart sound present, no gallops, no murmurs and no rubs GI Palpation (GI): Soft to palpation Back/Spine/Pelvis Other: unremarkable Skin General skin exam: no rashes or lesions noted Neuro General: patient oriented x3 Extrem General: Yes normal to inspection Psych Mental Status: mental status grossly normal Assessment & Plan Assessment & Plan (1) Atherosclerotic cardiovascular disease: Code(s): I25.10 - Atherosclerotic heart disease of [place] coronary artery without angina pectoris Category: Medical Plan: Status post CABG from 2019. Stable. Free of angina. (2) Essential hypertension: Code(s): I10 - Essential (primary) hypertension Category: Medical Plan: In the past, it has been high but today, completely normal. On lisinopril. (3) Type 2 diabetes mellitus with unspecified complications: Code(s): E11.8 - Type 2 diabetes mellitus with unspecified complications Category: Medical Plan: Remains on insulin. Hemoglobin A1c is still quite high. He is well aware of that. We discussed today. (4) Other and unspecified hyperlipidemia: Code(s): E78.5 - Hyperlipidemia, unspecified Category: Medical Plan: Last LDL is 119 mg/dL. He is aware it is high. He had some side effects to Zetia not taking it. Currently only on statins. He is due for repeat labs. If LDL is still high, then probably Repatha. Orders: Orders Lipid Panel 05/25/23 Z00.00 - Encounter for general adult medical examination without abnormal findings Coding Level of Care Code Est Pt Level 4 (68479) Diagnoses Atherosclerotic cardiovascular disease I25.10 Essential hypertension I10 Type 2 diabetes mellitus with unspecified complications E11.8 Other and unspecified hyperlipidemia E78.5
== END 2024-03-06 12:46 | disposition home or self-care (01) ==
PROVIDERS: PCP Nurse Practitioner Family; Visit Provider Internal Medicine
DX: I25.10 Atherosclerotic heart disease of native coronary artery without angina pectoris (principal); I10 Essential (primary) hypertension; E11.8 Type 2 diabetes mellitus with unspecified complications; E78.5 Hyperlipidemia, unspecified
CPT/HCPCS: 99214

== ENCOUNTER → 2024-03-06 12:28 | Outpatient (BNVA) | payer MEDICARE, OTHER, SELFPAY | PROVIDERS: PCP Nurse Practitioner Family; Visit Provider Internal Medicine | DX: I25.10 Atherosclerotic heart disease of native coronary artery without angina pectoris (principal); I10 Essential (primary) hypertension; E11.8 Type 2 diabetes mellitus with unspecified complications; E78.5 Hyperlipidemia, unspecified | CPT/HCPCS: 99212 ==

== ENCOUNTER 2024-04-09 10:51 | Outpatient (AMB) | payer MEDICARE, OTHER, SELFPAY ==
[2024-04-09 11:20] VITALS: BP 152/64; PULSE 93; O2SAT 97; BMI 30.8
--- NOTE | 2024-04-09 11:20 | A.OFFVIS_ITS ---
Vital Signs 04/09/24 11:20 Height 6 ft Weight 226 lb 13.69 oz BMI 30.8 BP 152/64 H Blood Pressure Location Rt brachial Position Sitting Pulse 93 Pulse Source Pulse Oximeter Pulse Oximetry (%) 97 Oxygen Delivery Method Room Air Intake Visit Reasons: mpo pos with [facility]- Dr. Cherry regorge Intake Note: Patient last seen 10/09/[address] Montiel, presents today for follow up. 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 Rosenbaum returns for follow-up of his peripheral ulcerative keratitis. He says that condition is resolved. He is off the antibiotic drops and also stopped with the tapering dose of corticosteroid drops. He does not have any symptoms with respect to the eye currently. He continues to see the eye doctor. He does not have any skin rashes, oral ulcers, shortness of breath, chest pain or abdominal pain. 10/09/2023: The patient returns for evaluation of his peripheral ulcerative keratitis. He says that condition is improving. He is off the antibiotic drops and is taking a tapering dose of corticosteroid drops. He does not have any symptoms with respect to the eye currently. He recently saw the eye doctor. He had some coughing previously that has subsided. He does not have any skin rashes, oral ulcers, shortness of breath, chest pain or abdominal pain. He had some diarrhea that seem to coincide with his respiratory symptoms before the onset of the eye problem but that has subsided. [facility] Medical History Hx of Saucedo's palsy Peripheral ulcerative keratitis Vaccination refused by patient Other and unspecified hyperlipidemia Type 2 diabetes mellitus with unspecified complications Atherosclerotic cardiovascular disease Adult hypothyroidism HTN (hypertension) Non-ST elevation [place] (NSTEMI) Basal cell carcinoma Surgical History History of cardiac catheterization (~06/17/20) S/P CABG x 4 (~06/30/20) Family History Father Stroke Substance use disorder Mother Breast cancer HTN (hypertension) Social History Household Members: Spouse Housing: House Alcohol intake: current Alcohol intake frequency: a few times a week Alcohol type: wine Patient Tobacco Use Status: Never used Tobacco e-Cigarette/Vaping Use: Never Used service: No Current occupational status: retired Cognitive needs: No Hearing needs: No Vision needs: No Review of Systems Const All systems reviewed & are unremarkable except as noted in HPI and below Physical Exam Vital Signs: Last Vital Signs Pulse 93 04/09/24 11:20 BP 152/64 H 04/09/24 11:20 Pulse Ox 97 04/09/24 11:20 Oxygen Delivery Method Room Air 04/09/24 11:20 BMI result Body Mass Index 30.8 APPEARANCE: Patient in no acute distress EYES no redness, pupils equal and reactive to light, eyelids normal EARS: External ear normal, canal clear and tympanic membrane normal. NOSE/SINUS: Airflow through both nares, no nasal discharge, no bleeding THROAT: Oral mucosa moist, no ulcerations NECK: No thyromegaly or masses, no adenopathy, trachea midline. HEART: Regulrar rhythm, S1-S2 heard, no murmurs, rubs or gallops. LUNG: Clear to percussion and auscultation ABD: Normal bowel sounds, no organomegaly, masses or tenderness. EXTREMITIES: No edema, no calf tenderness, normal peripheral pulses. NEURO: Oriented and alert x3. No focal weakness. Reflexes symmetric. Gait normal. SKIN: Evidence for some actinic damage on the forehead and scalp but no clear inflammatory or neoplastic lesions. Normal color and turgor of the fingertips JOINT EXAM:.?? Cervical Spine:.? Mild pain with lateral flexion at 10 degrees or rotation at 30 degrees to either side. There is some slight cervical muscle tenderness. Thoracic Spine:.? No scoliosis.? No tenderness on palpation. Lumbar Spine:.? Alignment normal.? Mild pain with flexion at 60 degrees but no tenderness. Chest Wall:.? No tenderness, swelling, increased warmth or erythema. Hands:.? Normal pain-free range of motion without tenderness, swelling, increased warmth or erythema. Able to make a full fist and has a good core analyst strength. Wrists:.? Normal pain-free range of motion without tenderness, swelling, increased warmth or erythema. Elbows:. Normal pain-free range of motion without tenderness, swelling, increased warmth or erythema. Shoulders:.?? Full range of motion without pain. No tenderness, weakness, swelling, increased warmth or erythema. Hips:.? Full range of motion without pain. Hip bursa:.? No tenderness. Knees:.?? Normal pain-free range of motion without tenderness, swelling, increased warmth or erythema.? There is no effusion or crepitation Ankles:.? Normal pain-free range of motion without tenderness, swelling, in creased warmth or erythema. Feet:? Normal pain-free range of motion with slight 1st MTP bony enlargement but no tenderness, soft tissue swelling, increased warmth or erythema. Results Reviewed Results Reviewed: Laboratory Tests 08/29/23 08/29/23 08/29/23 11:05 11:05 11:05 WBC 9.7 Hgb 16.7 ESR Creatinine C-Reactive Protein STEPHANIE Screen NEGATIVE Proteinase 3 (PR3) Ab <1.0 Myeloperoxidase Ab 47.5 H SS-A/Ro Antibody <1.0 NEG SS-B/La Antibody <1.0 NEG 10/03/23 10/03/23 10:33 10:33 WBC Hgb ESR 4 Creatinine 0.85 C-Reactive Protein 0.36 STEPHANIE Screen Proteinase 3 (PR3) Ab Myeloperoxidase Ab SS-A/Ro Antibody SS-B/La Antibody [facility] Adult Primary Care [facility] [place] [address] XRay Report Signed Patient: Bernard Rosenbaum MR#: [id number] : 1955 Acct:[id number] Age/Sex: 68 / M ADM Date: 10/03/23 Ordering Physician: Bernard Montiel MD Date of Service: 10/03/23 Procedure(s): XR chest 2V Accession Number(s): [id number] cc: Cash [place] [facility]-; Bernard Montiel MD~ EXAMINATION: XR CHEST 2 VIEW CLINICAL INFORMATION: Abnormal findings in serum COMPARISON: 06/25/2020 TECHNIQUE: PA and lateral views of the chest obtained. FINDINGS: The lungs are clear. There are no pleural effusions. Post sternotomy and CABG changes are evident. The cardiomediastinal silhouette is otherwise unremarkable.. XR/XR chest 2V IMPRESSION: No acute cardiopulmonary disease. 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 Last lab results show a positive anti MPO antibody which is associated with microscopic polyangiitis. However, I do not see any signs of that disease presently. I will obtain updated labs to recheck. I will also do some additional labs check for RA, and immunoglobulins to assess for activity. Given he has has respiratory episodes during the time he developed PUK, If he develops respiratory symptoms or joint pain and swelling he should call us to be re-evaluated sooner. Patient will call the office if need. I spent 25 minutes reviewing chart, evaluating patient and documenting. Orders: Orders ANCA Vasculitides Today R76.8 - Other specified abnormal immunological findings in serum Erythrocyte Sedimentation Rate Today R76.8 - Other specified abnormal immunological findings in serum C Reactive Protein Today R76.8 - Other specified abnormal immunological findings in serum Immunofixation Pnl, Serum Today R76.8 - Other specified abnormal immunological findings in serum Protein Electrophoresis, Serum Today R76.8 - Other specified abnormal immunological findings in serum Immunoglobulins,IgG IgA IgM Today R76.8 - Other specified abnormal immunological findings in serum Rheumatoid Factor Today H16.009 - Unspecified corneal ulcer, unspecified eye, R76.8 - Other specified abnormal immunological findings in serum Cyclic Citrullinated Peptide Today H16.009 - Unspecified corneal ulcer, unspecified eye, R76.8 - Other specified abnormal immunological findings in serum Coding Level of Care Code Est Pt Level 3 (30529) Diagnoses Peripheral ulcerative keratitis H16.009 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
== END 2024-04-09 11:51 | disposition home or self-care (01) ==
PROVIDERS: PCP Nurse Practitioner Family; Visit Provider Nurse Practitioner Family
DX: H16.009 Unspecified corneal ulcer, unspecified eye (principal); R76.8 Other specified abnormal immunological findings in serum
CPT/HCPCS: 99213

== ENCOUNTER → 2024-04-09 10:51 | Outpatient (BNVA) | payer MEDICARE, OTHER, SELFPAY | PROVIDERS: PCP Nurse Practitioner Family; Visit Provider Nurse Practitioner Family | DX: H16.009 Unspecified corneal ulcer, unspecified eye (principal); R76.8 Other specified abnormal immunological findings in serum | CPT/HCPCS: 99212 ==

== ENCOUNTER 2024-05-27 10:47 | Outpatient (REF) | payer MEDICARE, OTHER, SELFPAY ==
[2024-05-27 14:01] LABS: Rheumatoid Factor < 13.0 IU/mL (<15.0)
[2024-05-27 14:15] LABS: C Reactive Protein 0.22 mg/dL (< or = 0.50)
[2024-05-27 14:31] LABS: Erythrocyte Sedimentation Rate 2 MM/HR (0-15)
[2024-05-28 21:13] LABS: Prot Elec - Albumin 4.1 g/dL (3.8-4.8); Prot Elec - Alpha1 0.3 g/dL (0.2-0.3); Prot Elec - Alpha2 0.7 g/dL (0.5-0.9); Prot Elec - Beta 1 0.4 g/dL (0.4-0.6); Prot Elec - Beta 2 0.4 g/dL (0.2-0.5); Prot Elec - Gamma 0.9 g/dL (0.8-1.7); Prot Elec - Total Protein 6.7 g/dL (6.1-8.1)
[2024-05-29 13:58] LABS: Myeloperoxidase Antibody 28.5 AI; Proteinase 3 PR3 Antibodies <1.0 AI
[2024-05-29 14:53] LABS: Cyclic Citrullinated Peptide <16 UNITS
[2024-05-30 14:58] LABS: IgA 232 mg/dL (70-320); IgG 862 mg/dL (600-1540); IgM 231 mg/dL (50-300)
== END 2024-05-27 10:48 | disposition home or self-care (01) ==
LOC: HO.HMGCLDS 10:47
PROVIDERS: PCP Nurse Practitioner Family; Referring Provider Urology; Visit Provider Nurse Practitioner Family
DX: Z12.5 Encounter for screening for malignant neoplasm of prostate (principal); R76.8 Other specified abnormal immunological findings in serum; H16.009 Unspecified corneal ulcer, unspecified eye
CPT/HCPCS: 36415; 82784; 84153; 84165; 85652; 86021; 86140; 86200; 86334; 86431

== ENCOUNTER 2024-05-28 11:00 | Outpatient (AMB) | payer MEDICARE, OTHER, SELFPAY ==
--- NOTE | 2024-05-28 11:11 | A.OFFPC_ITS ---
Vital Signs 05/28/24 11:12 Height 6 ft Weight 225 lb BMI 30.5 BP 132/78 Blood Pressure Location Rt brachial Position Sitting Pulse 78 Pulse Source Pulse Oximeter Pulse Oximetry (%) 98 Oxygen Delivery Method Room Air Intake Visit Reasons: Annual PE Intake Note: Patient here for physical exam. Cologuard: 2020 Allergies Penicillins [PCN] Allergy (Unknown, Verified 05/28/24 11:13) RASH glipizide Adverse Reaction (Unknown, Verified 05/28/24 11:13) Nausea/Loss of appetite metformin Adverse Reaction (Unknown, Verified 05/28/24 11:13) GI upset Medication List - Last Reconciled 05/28/24 by MYRA Nguyễn- albuterol sulfate 90 mcg/actuation (Ventolin HFA) 2 puffs inhalation Q6H PRN aspirin 81 mg PO Q2D atorvastatin 40 mg PO BID 90 days flash glucose scanning reader ([employer] 360Style Ash 14 Day [place]) As directed flash glucose sensor (FreeStyle Ash 14 Day Sensor kit) As directed fluorometholone 0.1% drps ophthalmic (eye) insulin aspart (niacinamide) 100 unit/mL (3 mL) (Fiasp FlexTouch U-100 Insulin) subcut insulin degludec (Tresiba FlexTouch U-200 insulin) 40 units subcut DAILY levothyroxine 37.5 mcg (1/2 x 75 mcg) PO DAILY lisinopril 10 mg PO DAILY 90 days nitroglycerin 0.4 mg sublingual Q5M PRN 10 days pen needle, diabetic BID with tresiba pyridoxine (vitamin B6) 100 mg PO DAILY vardenafil 20 mg orally 2 times per week PRN; Take up to 2 times a week. DO NOT use within 4 hours of alpha richard medications. DO NOT use within 48 hours of nitroglycerin medication. Tobacco use date assessed: 11/06/23 Fall risk assessment: No Falls in past year Last assessed Fall Risk: 05/28/24 Dental Screening Dental Screen Date: 11/06/23 HPI Annual PE HPI Details Pt is here for a PE. Will order labs. Due for darren, will order. PSA is up to date, sees urology. Pt is a diabetic, sees endo. Pt also follows up with rheumatology and cardiology. Reports 80mg of atorvastatin makes him feel sick to his stomach. was taking 40mg. Recommended 40mg bid with food. [facility] Medical History Hx of Saucedo's palsy Peripheral ulcerative keratitis Vaccination refused by patient Other and unspecified hyperlipidemia Type 2 diabetes mellitus with unspecified complications Atherosclerotic cardiovascular disease Adult hypothyroidism HTN (hypertension) Non-ST elevation [place] (NSTEMI) Basal cell carcinoma Surgical History History of cardiac catheterization (~06/17/20) S/P CABG x 4 (~06/30/20) Family History Father Stroke Substance use disorder Mother Breast cancer HTN (hypertension) Social History Household Members: Spouse Housing: House Alcohol intake: current Alcohol intake frequency: a few times a week Alcohol type: wine Patient Tobacco Use Status: Never used Tobacco e-Cigarette/Vaping Use: Never Used service: No Current occupational status: retired Cognitive needs: No Hearing needs: No Vision needs: No Questionnaire PHQ-9 Over the last 2 weeks, how often have you been bothered by any of the following problems? 1. Little interest or pleasure in doing things: several days 2. Feeling down, depressed, or hopeless: several days 3. Trouble falling or staying asleep, or sleeping too much: not at all 4. Feeling tired or having little energy: several days 5. Poor appetite or overeating: not at all 6. Feeling bad about yourself - or that you are a failure or have let yourself or your family down: not at all 7. Trouble concentrating on things, such as reading the newspaper or watching television: not at all 8. Moving or speaking so slowly that other people could have noticed. Or the opposite - being so fidgety or restless that you have been moving around a lot more than usual: not at all 9. Thoughts that you would be better off or of hurting yourself in some way: not at all Total score: 3 Depression Screening Interpretation: Negative Depression Screening Done: Yes [id number] - PHQ-9 Billing: Yes Source: Developed by Drs. J Luis Enriquez, Linda Vance, Lior Duran and colleagues, with an educational amina from [employer]. Thrive Questionnaire Date Thrive assessed: 11/06/23 I am a: Patient What is your living situation today?: I have a steady place to live Within the past 12 months, did the food you bought not last and you didn't have the money to get more?: Never true Within the past 12 months, did you worry whether your food would run out before you got money to buy more?: Never true Do you have trouble paying for medicines?: No Do you have trouble getting transportation to medical appointments?: No Do you have trouble paying your heating and electricity bill?: No Do you have trouble taking care of your child, family member or friend?: No Do you have trouble with day-to-day activities such as bathing, preparing meals, shopping, managing finances, etc.?: No Are you currently unemployed and looking for a job?: No Are you interested in more education?: No Please select the resources that you would like help with: Housing/Fci Currently or been in a relationship where the following occur: No concerns reported THRIVE Score: 0 AUDIT C Alcohol Use Questionnaire (AUDIT-C) 1. How often do you have a drink containing alcohol?: 2-4 times a month 2. How many drinks containing alcohol do you have on a typical day when you are drinking?: 1 or 2 3. How often do you have six or more drinks on one occasion?: Never Total Score: 2 JANNA-7 AMB Questionnaire JANNA-7 Date JANNA - 7 assessed: 02/01/23 Feeling nervous, anxious, or on edge: 0 = Not at all Not being able to stop or control worryin = Several days Worrying too much about different things: 0 = Not at all Trouble relaxin = Not at all Being so restless that it is hard to sit still: 0 = Not at all Becoming easily annoyed or irritable: 0 = Not at all Feeling afraid as if something awful might happen: 0 = Not at all Total JANNA-7 score (0-4 normal; 5-9 mild; 10-14 moderate; 15-21 severe): 1 Source: Developed by Drs. J Luis Enriquez, Linda Vance, Lior Duran and colleagues, with an educational amina from [employer]. JANNA-7 Assessment Billing JANNA-7 Assessment Tool: JANNA-7 Assessment [id number] Review of Systems Const Denies chills and Denies fever(s) Eyes Denies blurry vision ENT Denies vertigo, Denies dizziness and Denies sore throat Card Denies chest pain at rest, Denies chest pain with activity, Denies diaphoresis, Denies dyspnea and Denies dyspnea on exertion Resp Denies cough, Denies dyspnea, Denies dyspnea on exertion and Denies wheezing GI Denies abdominal pain, Denies melena, Denies hematochezia, Denies constipation, Denies diarrhea and Denies loose stools Denies hematuria Musc Denies numbness and Denies tingling Skin/Breast Denies lesions Neuro Denies vertigo, Denies dizziness, Denies numbness and Denies tingling Psych Denies anxiety, Denies depression, Denies homicidal ideation, Denies suicidal ideation and Denies other (substance abuse) Aller/Immun Denies wheezing Physical exam (Primary Care) Vital Signs: Last Vital Signs Pulse 78 05/28/24 11:12 BP 132/78 05/28/24 11:12 Pulse Ox 98 05/28/24 11:12 Oxygen Delivery Method Room Air 05/28/24 11:12 BMI result Body Mass Index 30.5 Tobacco/Smoking Status: Tobacco use Status Tobacco use date assessed 11/06/23 05/28/24 11:12 Patient Tobacco Use Status Never used Tobacco 05/28/24 11:12 e-Cigarette/Vaping Use Never Used 05/28/24 11:12 PHQ-9: PHQ-9 Score PHQ-9: Total score 3 05/28/24 11:29 Depression Screening Interpretation: Negative Thrive Assessment: Date of Thrive Assessment Date Thrive assessed 11/06/23 05/28/24 11:12 Currently or been in a relationship where the following occur: No concerns reported Const General: cooperative Nutritional Appearance: obese Orientation/consciousness: patient oriented x3 HENMT Head: Yes normal to inspection, Yes normocephalic and Yes atraumatic Ears: TM's normal bilaterally Eyes General: appearance normal, both eyes and all related structures Alignment and Position: alignment normal and position normal Neck Neck: Yes normal visual inspection and Yes no lymphadenopathy Thyroid: Thyroid normal Resp Effort & Inspection: normal respiratory effort Auscultation: clear to auscultation bilaterally Cardio Rate: regular rate Rhythm: regular rhythm Heart sounds: S1 normal heart sound present, S2 normal heart sound present and no murmurs GI Palpation (GI): Soft to palpation, nontender and Hernia present umbilical Auscultation: normal bowel sounds Male General Exam: Yes normal external exam Penis: normal penis Scrotum: scrotum normal, testes descended bilaterally and no inguinal hernias Testes: no testicular mass Skin Rashes: no rashes Neuro General: patient oriented x3, moves all extremities, no focal motor deficits and deep tendon reflexes 2+ bilaterally Romberg Test: Negative Psych Appearance: grossly normal Mental Status: mental status grossly normal Speech and movement: Normal speech and movement present Affect: normal affect Attitude: cooperative Thought process: Normal thought process present Thought content: Normal thought content present Insight: Good insight present (Psych) Judgement: Good judgement present (Psych) Results AMB Hemoglobin A1c AMB Hemoglobin A1c 8.2 % Last Edit by LACHELLE Camp on 05/28/24 11 :35 Assessment and Plan Assessment & Plan (1) Physical exam: Code(s): Z00.00 - Encounter for general adult medical examination without abnormal findings Plan: Labs ordered Plan The patient agreed to the use of a expert medical writer for this encounter. Scribed for JASSON Velasquez by Enid Brewer expert medical writer, on 05/28/2024 at 11:25 EST. Orders: Orders Complete Blood Count Auto Diff Today Z00.00 - Encounter for general adult medical examination without abnormal findings Comprehensive [place]. Panel Fast Today Z00.00 - Encounter for general adult medical examination without abnormal findings TSH reflex Free T4 Today Z00.00 - Encounter for general adult medical examination without abnormal findings UA CC w/rflx Micro + Cult Today Z00.00 - Encounter for general adult medical examination without abnormal findings Lipid Panel Today Z00.00 - Encounter for general adult medical examination without abnormal findings AMB Hemoglobin A1c Today E11.8 - Type 2 diabetes mellitus with unspecified complications Referrals Cologuard Test Z12.11 - Encounter for screening for malignant neoplasm of colon, Z12.12 - Encounter for screening for malignant neoplasm of rectum Medications: New atorvastatin 40 mg PO BID 90 days 180 tabs 0RF Coding Level of Care Code Est Pt Prev Care >65y(53568) Diagnoses Physical exam Z00.00 Additional Codes JANNA-7 Assessment Billing - JANNA-7 Assessment Tool: JANNA-7 Assessment [id number] ([id number])
[2024-05-28 11:12] VITALS: BP 132/78; PULSE 78; O2SAT 98; BMI 30.5
== END 2024-05-28 11:41 | disposition home or self-care (01) ==
PROVIDERS: PCP Nurse Practitioner Family; Visit Provider Nurse Practitioner Family
DX: Z00.00 Encounter for general adult medical examination without abnormal findings (principal); E11.8 Type 2 diabetes mellitus with unspecified complications
CPT/HCPCS: 83036; 99397

== ENCOUNTER 2024-06-03 10:20 | Outpatient (REF) | payer MEDICARE, OTHER, SELFPAY ==
--- NOTE | ~2024-06-03 | US_ITS ---
EXAMINATION: US RETROPERITONEAL LIMITED (RENAL ONLY) CLINICAL INFORMATION: Calculus of kidney. COMPARISON: Renal ultrasound 06/20/2022. Ultrasound bladder 12/14/2021. CT abdomen and pelvis 04/04/2019. TECHNIQUE: Real-time imaging of the kidneys. Limited visualization due to bowel gas. FINDINGS: RIGHT KIDNEY: 11.4 x 5.2 x 6.1 cm (SAG x AP x TRV). No hydronephrosis. 0.4 cm upper pole and 0.3 cm lower pole calculi. Renal cortical thickness is normal. Limited visualization. 1.0 cm midpole cyst with benign features. There is no indication for follow-up imaging. LEFT KIDNEY: 12.5 x 5.7 x 6.9 cm (SAG x AP x TRV). . No hydronephrosis. 0.2 cm lower pole calculus. Renal cortical thickness is normal. 2.3 x 1.7 x 2.2 cm upper pole cyst is difficult to characterize due to limited visualization. Ultrasound of 06/20/2022 demonstrated a 2.2 x 2.1 x 1 point. There is no specific indication for additional imaging. US/US renal BI IMPRESSION: Bilateral nephrolithiasis. No hydronephrosis
== END 2024-06-03 10:21 | disposition home or self-care (01) ==
LOC: HO.HMGCX 10:20
PROVIDERS: PCP Nurse Practitioner Family; Visit Provider Urology
DX: N20.0 Calculus of kidney (principal)
CPT/HCPCS: 76775

== ENCOUNTER 2024-07-04 11:24 | Outpatient (AMB) | payer MEDICARE, OTHER, SELFPAY ==
--- NOTE | 2024-07-04 11:43 | MHC.OFFVIS ---
Intake Visit Reasons: 7m/US(US 06/03) Intake Note: Patient presents today for a 7M follow-up/US Meds-VARDENAFIL, VITAMIN B6 Allergies to Antibiotic- Penicillins Blood Thinner- Aspirin Scallop Raker Required: No Accompanied by: Self / Same As Patient Allergies Penicillins [PCN] Allergy (Unknown, Verified 07/04/24 11:44) RASH glipizide Adverse Reaction (Unknown, Verified 07/04/24 11:44) Nausea/Loss of appetite metformin Adverse Reaction (Unknown, Verified 07/04/24 11:44) GI upset Medication List - Last Reconciled 07/04/24 by David Garrido MD albuterol sulfate 90 mcg/actuation (Ventolin HFA) 2 puffs inhalation Q6H PRN aspirin 81 mg PO Q2D atorvastatin 80 mg PO BEDTIME flash glucose scanning reader ([employer] GroupStyle Ash 14 Day [place]) As directed flash glucose sensor (FreeStyle Ash 14 Day Sensor kit) As directed fluorometholone 0.1% drps ophthalmic (eye) insulin aspart (niacinamide) 100 unit/mL (3 mL) (Fiasp FlexTouch U-100 Insulin) subcut insulin degludec (Tresiba FlexTouch U-200 insulin) 40 units subcut DAILY levothyroxine 37.5 mcg (1/2 x 75 mcg) PO DAILY lisinopril 10 mg PO DAILY 90 days nitroglycerin 0.4 mg sublingual Q5M PRN 10 days pen needle, diabetic BID with tresiba pyridoxine (vitamin B6) 100 mg PO DAILY tadalafil 5 mg PO DAILY HPI Comments Details: 07/04/24--Bernard is here in fu for kidney stones, reviewed renal US 06/03/24-- bilateral kidney stones, small. He states he has passed stones in the past, and has been asymptomatic, 24 hr urine prior significant for hyperoxaluria, on Vit b6 100 mg. State levitra not working, will send daily cialis 5 mg. He has not need to use nitroglycerin in years. Denies voiding issues. PSA 05/27/24--0.80 ng/mL. Plan fu in 6 months will discuss ED symptoms on Cialis. Monitor kidney stones, repeat US in one year. Review of chart: 12/04/23--Bernard is a 67-year-old male who presents to the office for follow-up for kidney stones. PMH significant for DM and quadruple bypass done at [facility]. 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 He states since he was last evaluated, he passed about 3 stones. He is interested in meds for erectile dysfunction and has put in a call to his fruit or nut crops farm manager for clearance. He states he is voiding with a good flow, denies dysuria or gross hematuria. Discussed 24 hr urine - urine oxalate 55, urine sodium 209. Discussed low oxalate diet, pt states he eats alot of nuts and green leafy vegetables. Hyperoxaluria. Vit B6 100 mg. Monitor kidney stones. Will have nursing staff contact the pt's Inspector Fuel Hose regarding clearance for ED medication use. pt states lorelei has worked for him in the past. PSA - 04/21/23-- 0.66 AUA symptom score: 3. PSA results ?10/17/22?0.60. PFSH Medical History Hx of Saucedo's palsy Peripheral ulcerative keratitis Vaccination refused by patient Other and unspecified hyperlipidemia Type 2 diabetes mellitus with unspecified complications Atherosclerotic cardiovascular disease Adult hypothyroidism HTN (hypertension) Non-ST elevation [place] (NSTEMI) Basal cell carcinoma Surgical History History of cardiac catheterization (~06/17/20) S/P CABG x 4 (~06/30/20) Family History Father Stroke Substance use disorder Mother Breast cancer HTN (hypertension) Social History Household Members: Spouse Housing: House Alcohol intake: current Alcohol intake frequency: a few times a week Alcohol type: wine Patient Tobacco Use Status: Never used Tobacco e-Cigarette/Vaping Use: Never Used service: No Current occupational status: retired Cognitive needs: No Hearing needs: No Vision needs: No Review of Systems Const All systems reviewed & are unremarkable except as noted in HPI and below Reports no additional complaints Eyes Reports no additional complaints ENT Reports no additional complaints Card Reports no additional complaints Resp Reports no additional complaints GI Reports no additional complaints Reports as per HPI Musc Reports no additional complaints Skin/Breast Reports system reviewed and no additional complaints, except as documented Neuro Reports no additional complaints Psych Reports no additional complaints Endo Reports no additional complaints Elan/Lymph Reports no additional complaints Aller/Immun Reports no additional complaints Results AMB Urinalysis, Automated UA Leukoctes 0 Lazaro/uL Last Edit by LACHELLE Park on 07/04/24 11:57 UA Nitrite Negative Last Edit by Demario Bailey [facility] on 07/04/24 11:57 UA Urobilinogen 0.2 mg/dL Last Edit by Demario Bailey [facility] on 07/04/24 11:57 UA Protein 0 mg/dL Last Edit by Demario Bailey [facility] on 07/04/24 11:57 UA pH 5.5 Last Edit by Demario Bailey [facility] on 07/04/24 11:57 UA Blood 0 Conor/uL Last Edit by Demario Bailey [facility] on 07/04/24 11:57 UA Specific [place] 1.030 Last Edit by Demario Bailey [facility] on 07/04/24 11:57 UA Ketone Negative Last Edit by Demario Bailey [facility] on 07/04/24 11:57 UA Bilirubin 0 mg/dL Last Edit by Demario Bailey [facility] on 07/04/24 11:57 UA Glucose 0 mg/dL Last Edit by Demario Bailey [facility] on 07/04/24 11:57 Results Reviewed Results Reviewed: Laboratory Last Values Urine pH (Auto) 5.5 07/04/24 11:56 Specific [place] (Auto) 1.030 07/04/24 11:56 Urine Protein (Auto) 0 mg/dL 07/04/24 11:56 Glucose (UA)(Auto) 0 mg/dL 07/04/24 11:56 Urine Ketones (Auto) Negative 07/04/24 11:56 Urine Blood (Auto) 0 Conor/uL 07/04/24 11:56 Urine Nitrite (Auto) Negative 07/04/24 11:56 Urine Bilirubin (Auto) 0 mg/dL 07/04/24 11:56 Urine Urobilinogen (Auto) 0.2 mg/dL 07/04/24 11:56 Leukocyte Esterase (Auto) 0 Lazaro/uL 07/04/24 11:56 Date of Service: 06/03/24 US RETROPERITONEAL LIMITED (RENAL ONLY) CLINICAL INFORMATION: Calculus of kidney. COMPARISON: Renal ultrasound 06/20/2022. Ultrasound bladder 12/14/2021. CT abdomen and pelvis 04/04/2019. TECHNIQUE: Real-time imaging of the kidneys. Limited visualization due to bowel gas. FINDINGS: RIGHT KIDNEY: 11.4 x 5.2 x 6.1 cm (SAG x AP x TRV). No hydronephrosis. 0.4 cm upper pole and 0.3 cm lower pole calculi. Renal cortical thickness is normal. Limited visualization. 1.0 cm midpole cyst with benign features. There is no indication for follow-up imaging. LEFT KIDNEY: 12.5 x 5.7 x 6.9 cm (SAG x AP x TRV). . No hydronephrosis. 0.2 cm lower pole calculus. Renal cortical thickness is normal. 2.3 x 1.7 x 2.2 cm upper pole cyst is difficult to characterize due to limited visualization. Ultrasound of 06/20/2022 demonstrated a 2.2 x 2.1 x 1 point. There is no specific indication for additional imaging. IMPRESSION: Bilateral nephrolithiasis. No hydronephrosis Date of Service: 06/20/22 EXAMINATION: US RETROPERITONEAL LIMITED (RENAL ONLY) CLINICAL INFORMATION: Cyst of kidney, acquired. COMPARISON: US pelvis limited (bladder) 12/14/2021. US retroperitoneal limited (renal only) 11/11/2021. CT abdomen and pelvis 04/04/2019. TECHNIQUE: Real-time imaging of the kidneys.? FINDINGS: RIGHT KIDNEY: 11.1 x 5.6 x 5.6 cm (SAG x AP x TRV). The kidney is normal in size, contour, and echogenicity. Renal cortical thickness is normal. No focal parenchymal lesions or hydronephrosis. There is an echogenic nonobstructive stone in lower pole measuring 0.3 and 0.4 cm. LEFT KIDNEY: 11.1 x 6.0 x 5.2 cm (SAG x AP x TRV). The kidney is normal in size, contour, and echogenicity. Renal cortical thickness is normal. No hydronephrosis. There is anechoic cyst in the upper pole measuring 2.2 x 2.1 x 1.9 cm. There is a nonobstructive echogenic stone midpole measuring 0.4 cm and a lower pole measuring 0.5 cm and 0.4 cm. IMPRESSION: Bilateral nonobstructive echogenic renal calculi. No hydronephrosis.? Anechoic cyst upper pole measuring 2.2 cm. Assessment & Plan Assessment & Plan (1) Bilateral kidney stones: Code(s): N20.0 - Calculus of kidney Category: Medical (2) Screening PSA (prostate specific antigen): Code(s): Z12.5 - Encounter for screening for malignant neoplasm of prostate Category: Medical (3) Erectile disorder: Code(s): N52.9 - Male erectile dysfunction, unspecified Category: Medical Plan hyperoxaluria, on Vit b6 100 mg. State levitra not working, will send daily cialis 5 mg. He has not need to use nitroglycerin in years. Denies voiding issues. PSA 05/27/24--0.80 ng/mL. Plan fu in 6 months will discuss ED symptoms on Cialis. Monitor kidney stones, repeat US in one year. Orders: Orders US renal BI 11 Months N20.0 - Calculus of kidney AMB Urinalysis Automated Today Z13.9 - Encounter for screening, unspecified Medications: Refilled pyridoxine (vitamin B6) 100 mg PO DAILY 90 tabs 3RF Discontinued vardenafil Discontinued Reason: Doctor's Order 20 mg orally 2 times per week PRN; Take up to 2 times a week. DO NOT use within 4 hours of alpha richard medications. DO NOT use within 48 hours of nitroglycerin medication. 10 tabs 0RF sexual activity N52.9 - Male erectile dysfunction, unspecified Patient Instructions: The patient had an opportunity to ask questions regarding treatment plan. The patient expressed understanding and agreement with the above treatment plan. The patient is aware they should contact our office by phone for worsening of their current condition or the appearance of new symptoms. Compliance is encouraged with any medications and followup testing that is ordered. It is a privilege to be allowed the opportunity to participate in the urologic care of your patient. If you have any questions or concerns regarding treatment for the above conditions please do not hesitate to contact me. The office telephone contact is [phone]. This note is constructed in part using voice recognition software. While every effort has been made to ensure accuracy merchandising internship errors may have been included. Yours sincerely, David Garrido MD Coding Level of Care Code Est Pt Level 4 (51509) Diagnoses Bilateral kidney stones N20.0 Screening PSA (prostate specific antigen) Z12.5 Erectile disorder N52.9
== END 2024-07-04 12:34 | disposition home or self-care (01) ==
PROVIDERS: PCP Nurse Practitioner Family; Visit Provider Urology
DX: N20.0 Calculus of kidney (principal); Z12.5 Encounter for screening for malignant neoplasm of prostate; N52.9 Male erectile dysfunction, unspecified; Z13.9 Encounter for screening, unspecified
CPT/HCPCS: 99214

== ENCOUNTER → 2024-07-04 11:24 | Outpatient (BNVA) | payer MEDICARE, OTHER, SELFPAY | PROVIDERS: PCP Nurse Practitioner Family; Visit Provider Urology | DX: N20.0 Calculus of kidney (principal); N52.9 Male erectile dysfunction, unspecified; R82.992 Hyperoxaluria | CPT/HCPCS: 81003; 99212 ==

== ENCOUNTER 2024-08-22 09:51 | Outpatient (REF) | payer MEDICARE, OTHER, SELFPAY ==
[2024-08-22 13:25] LABS: MANUAL DIFF FLAG NO
[2024-08-22 13:29] LABS: Appearance Urine Turbid; Color Urine Yellow; Glucose Urine UA Negative (Negative); Leukocyte Esterase Urine Negative (Negative); Nitrite Urine Negative (Negative); PH 5.5 (5.0-9.0); Urine Blood Negative (Negative); Urine Ketones Negative (Negative); Urine Protein Negative (Neg-Trace)
[2024-08-22 14:03] LABS: Basophils Percent Auto 0.5 % (0-2); Eosinophils Absolute Auto 0.3 X10*3/uL (0.0-0.4); Imm Gran Abs Auto 0.06 X10*3/uL (0.00-0.03); Imm Gran Pct Auto 0.7 % (0.0-0.4); Lymphocytes Absolute Auto 2.6 X10*3/uL (1.2-4.9); Lymphocytes Percent Auto 30.5 % (20-40); Mean Corpuscular HGB Conc 33.3 g/dl (31.0-36.0); Mean Corpuscular Hemoglobin 30.5 pg (27.0-33.0); Mean Corpuscular Volume 91.6 fL (80.0-98.0); Mean Platelet Volume 10.5 fL (9.4-12.4); Monocytes Absolute Auto 0.7 X10*3/uL (0.1-1.2); Monocytes Percent Auto 7.7 % (2-11); Neutrophils Absolute Auto 4.9 x10*3/uL (2.0-8.3); Neutrophils Percent Auto 57.6 % (45-73); Platelet Count 308 X10*3/uL (160-400); Red Blood Count 5.24 X10*6/uL (4.60-5.80); Red Cell Distribution Width 13.7 % (11.0-16.0); White Blood Count 8.4 X10*3/uL (4.8-10.8)
[2024-08-22 14:34] LABS: Alanine Aminotransferase 17 U/L (0-40); Albumin Level 4.2 g/dL (3.5-5.0); Alkaline Phosphatase 86 U/L (39-117); Anion Gap 12 (12-20); Aspartate Amino Transferase 28 U/L (5-37); Bilirubin Total 0.8 mg/dL (0.0-1.0); Blood Urea Nitrogen 17 mg/dL (9-16); Calcium 9.5 mg/dL (8.4-10.2); Carbon Dioxide 26 mmol/L (22-29); Chloride 105 mmol/L (96-108); Cholesterol 184 mg/dL (<200); Estimated Glomerular Filt Rate > 60; Glucose Fasting 194 mg/dL (60-99); HDL Cholesterol 56 mg/dL (>40); LDL Cholesterol Calculated 115 mg/dL (<100); Potassium 4.4 mmol/L (3.3-5.1); Sodium 139 mmol/L (135-145); TSH reflex Free T4 4.12 uIU/mL (0.32-4.0); Triglycerides 68 mg/dL (<150)
[2024-08-22 15:10] LABS: Free T4 (Free Thyroxine) 0.91 ng/dL (0.71-1.85)
== END 2024-08-22 09:52 | disposition home or self-care (01) ==
LOC: HO.HMGCLDS 09:51
PROVIDERS: PCP Nurse Practitioner Family; Visit Provider Nurse Practitioner Family
DX: Z00.00 Encounter for general adult medical examination without abnormal findings (principal)
CPT/HCPCS: 36415; 80053; 80061; 81003; 84439; 84443; 85025

== ENCOUNTER 2024-09-10 12:29 | Outpatient (AMB) | payer MEDICARE, OTHER, SELFPAY ==
--- NOTE | 2024-09-10 12:33 | A.OFFVIS_ITS ---
Vital Signs 09/10/24 12:34 Height 6 ft Weight 231 lb 7.766 oz BMI 31.4 BP 160/78 H Blood Pressure Location Lt brachial Position Sitting Pulse 97 Pulse Source Monitor Intake Visit Reasons: 6m follow up Allergies Penicillins [PCN] Allergy (Unknown, Verified 07/04/24 11:44) RASH glipizide Adverse Reaction (Unknown, Verified 07/04/24 11:44) Nausea/Loss of appetite metformin Adverse Reaction (Unknown, Verified 07/04/24 11:44) GI upset Medication List - Last Reconciled 09/10/24 by Melvin Johnson MD albuterol sulfate 90 mcg/actuation (Ventolin HFA) 2 puffs inhalation Q6H PRN aspirin 81 mg PO Q2D atorvastatin 80 mg PO BEDTIME flash glucose scanning reader ([employer] Ash 14 Day [place]) As directed flash glucose sensor ([employer] Ash 14 Day Sensor kit) As directed fluorometholone 0.1% drps ophthalmic (eye) insulin aspart (niacinamide) 100 unit/mL (3 mL) (Fiasp FlexTouch U-100 Insulin) subcut insulin degludec (Tresiba FlexTouch U-200 insulin) 40 units subcut DAILY levothyroxine 37.5 mcg (1/2 x 75 mcg) PO DAILY lisinopril 10 mg PO DAILY 90 days nitroglycerin 0.4 mg sublingual Q5M PRN 10 days pen needle, diabetic BID with tresiba pyridoxine (vitamin B6) 100 mg PO DAILY HPI Comments Details: Bernard returns for follow-up regarding coronary artery disease. To recall, in 2019, he had anginal symptoms that led to further evaluation, leading to coronary artery bypass surgery. Otherwise, multiple cardiovascular risk factors including obesity, hypertension, diabetes, dyslipidemia. He states he is doing good. No cardiac symptoms whatsoever. [facility] Medical History Hx of Saucedo's palsy Peripheral ulcerative keratitis Vaccination refused by patient Other and unspecified hyperlipidemia Type 2 diabetes mellitus with unspecified complications Atherosclerotic cardiovascular disease Adult hypothyroidism HTN (hypertension) Non-ST elevation [place] (NSTEMI) Basal cell carcinoma Surgical History History of cardiac catheterization (~06/17/20) S/P CABG x 4 (~06/30/20) Family History Father Stroke Substance use disorder Mother Breast cancer HTN (hypertension) Social History Household Members: Spouse Housing: House Alcohol intake: current Alcohol intake frequency: a few times a week Alcohol type: wine Patient Tobacco Use Status: Never used Tobacco e-Cigarette/Vaping Use: Never Used service: No Current occupational status: retired Cognitive needs: No Hearing needs: No Vision needs: No Review of Systems Const Denies weakness ENT Denies dizziness Card Denies chest pain, Denies chest pain with activity, Denies syncope, Denies rapid heart rate, Denies pedal edema, Denies edema, Denies leg edema, Denies lightheadedness, Denies palpitations, Denies dyspnea, Denies dyspnea on exertion and Denies orthopnea Resp Denies cough, Denies dyspnea and Denies dyspnea on exertion GI Denies hematochezia and Denies change in stool character Musc Denies abnormal gait, Denies muscle cramps, Denies muscle weakness, Denies numbness, Denies radiating pain into limb and Denies tingling Neuro Denies abnormal gait, Denies dizziness, Denies syncope, Denies numbness, Denies tingling and Denies weakness Endo Denies palpitations Physical Exam Vital Signs: Last Vital Signs Pulse 97 09/10/24 12:34 BP 160/78 H 09/10/24 12:34 BMI result Body Mass Index 31.4 Const General: comfortable and no acute distress Orientation/consciousness: patient oriented x3 HEENT Other: Unremarkable Head: Yes normal to inspection Neck Neck: Yes normal visual inspection Chest Chest palpation & inspection: normal inspection of the chest Resp Auscultation: clear to auscultation bilaterally Cardio Palpation: normal PMI Heart sounds: S1 normal heart sound present, S2 normal heart sound present, no gallops, no murmurs and no rubs GI Palpation (GI): Soft to palpation Back/Spine/Pelvis Other: unremarkable Skin General skin exam: no rashes or lesions noted Neuro General: patient oriented x3 Extrem General: Yes normal to inspection Psych Mental Status: mental status grossly normal Office Procedures EKG Details: EKG with underlying sinus rhythm at 97/Min; can not exclude old anterior i nfarct; [place] [address][id number], Complete Assessment & Plan Assessment & Plan (1) Atherosclerotic cardiovascular disease: Code(s): I25.10 - Atherosclerotic heart disease of [place] coronary artery without angina pectoris Category: Medical Plan: Status post CABG from 2019. Stable. Free of angina. (2) Essential hypertension: Code(s): I10 - Essential (primary) hypertension Category: Medical Plan: Blood pressure is running high. I re-checked it myself and it is still high. Increase lisinopril 20 mg daily. He can take 2 of 10mg tablets as he states he has a lot of them. Can check BNP few weeks after increasing the dose. (3) Type 2 diabetes mellitus with unspecified complications: Code(s): E11.8 - Type 2 diabetes mellitus with unspecified complications Category: Medical Plan: Remains on insulin. Last hemoglobin A1c is still 8.2%. Higher than ideal. (4) Other and unspecified hyperlipidemia: Code(s): E78.5 - Hyperlipidemia, unspecified Category: Medical Plan: Last LDL is 115 mg/dL. On high-dose statins. Had some issues with Zetia and not taking it. We discussed about Repatha but he would rather not do that for now. He wants to adjust his diet and recheck it in a few months. Orders: Orders Lipid Panel Today E11.8 - Type 2 diabetes mellitus with unspecified complications Basic Metabolic Panel 4 Weeks E11.8 - Type 2 diabetes mellitus with unspecified complications Coding Level of Care Code Est Pt Level 4 (06405) Diagnoses Atherosclerotic cardiovascular disease I25.10 Essential hypertension I10 Type 2 diabetes mellitus with unspecified complications E11.8 Other and unspecified hyperlipidemia E78.5 CPT Codes EKG - CPT: 75526-[id number], Complete ([id number])
[2024-09-10 12:34] VITALS: BP 160/78; PULSE 97; BMI 31.4
== END 2024-09-10 13:03 | disposition home or self-care (01) ==
PROVIDERS: PCP Nurse Practitioner Family; Visit Provider Internal Medicine
DX: I25.10 Atherosclerotic heart disease of native coronary artery without angina pectoris (principal); I10 Essential (primary) hypertension; E11.8 Type 2 diabetes mellitus with unspecified complications; E78.5 Hyperlipidemia, unspecified
CPT/HCPCS: 93010; 99214

== ENCOUNTER → 2024-09-10 12:29 | Outpatient (BNVA) | payer MEDICARE, OTHER, SELFPAY | PROVIDERS: PCP Nurse Practitioner Family; Visit Provider Internal Medicine | DX: I25.10 Atherosclerotic heart disease of native coronary artery without angina pectoris (principal); I10 Essential (primary) hypertension; E11.9 Type 2 diabetes mellitus without complications; E78.5 Hyperlipidemia, unspecified; E11.8 Type 2 diabetes mellitus with unspecified complications; E66.9 Obesity, unspecified; Z68.31 Body mass index [BMI] 31.0-31.9, adult; Z95.1 Presence of aortocoronary bypass graft | CPT/HCPCS: 93005; 99212 ==

== ENCOUNTER 2024-10-15 10:17 | Outpatient (REF) | payer MEDICARE, OTHER, SELFPAY ==
[2024-10-15 13:46] LABS: Anion Gap 12 (12-20); Blood Urea Nitrogen 13 mg/dL (9-16); Calcium 9.4 mg/dL (8.4-10.2); Carbon Dioxide 26 mmol/L (22-29); Chloride 104 mmol/L (96-108); Cholesterol 129 mg/dL (<200); Estimated Glomerular Filt Rate > 60; Glucose Random 156 mg/dL (60-115); HDL Cholesterol 49 mg/dL (>40); LDL Cholesterol Calculated 71 mg/dL (<100); Potassium 4.4 mmol/L (3.3-5.1); Sodium 138 mmol/L (135-145); Triglycerides 47 mg/dL (<150)
[2024-10-15 14:00] LABS: TSH reflex Free T4 3.72 uIU/mL (0.32-4.0)
== END 2024-10-15 10:18 | disposition home or self-care (01) ==
LOC: HO.HMGCLDS 10:17
PROVIDERS: PCP Nurse Practitioner Family; Referring Provider Internal Medicine; Visit Provider Nurse Practitioner Family
DX: R79.89 Other specified abnormal findings of blood chemistry (principal); E11.8 Type 2 diabetes mellitus with unspecified complications
CPT/HCPCS: 36415; 80048; 80061; 84443

== ENCOUNTER 2024-11-04 13:01 | Outpatient (AMB) | payer MEDICARE, OTHER, SELFPAY ==
[2024-11-04 13:11] VITALS: BP 146/74; PULSE 96; O2SAT 97; BMI 31.8
--- NOTE | 2024-11-04 13:11 | A.OFFVIS_ITS ---
Vital Signs 11/04/24 13:11 Height 6 ft Weight 234 lb 2.095 oz BMI 31.8 BP 146/74 H Blood Pressure Location Rt brachial Position Sitting Pulse 96 Pulse Source Pulse Oximeter Pulse Oximetry (%) 97 Oxygen Delivery Method Room Air Intake Visit Reasons: Other fecal abnormalities Intake Note: NEW PATIENT Reason; in office initial assessment. Prior hx of colo/egd? Prev neg cologuard 2020. No prior hx of colo/egd. Concerns/Questions? Increased gas (AM primarily). Pt has been trying to mediate with diet changes which has had a slight effect. Allergies Penicillins [PCN] Allergy (Unknown, Verified 11/04/24 13:12) RASH glipizide Adverse Reaction (Unknown, Verified 11/04/24 13:12) Nausea/Loss of appetite metformin Adverse Reaction (Unknown, Verified 11/04/24 13:12) GI upset HPI HPI Other fecal abnormalities: Details: 69 year old? male here with past medical history tachycardia, left carotid artery stenosis, BPH, hyperlipidemia, diabetes, hypertension, non ST-elevation [place], CAD is here today for pre colonoscopy screening.? Patient was sent to us by his PCP.? This is his first colonoscopy screening.? Patient had positive Cologuard and was sent to us by his PCP for possible colonoscopy. Patient reports that he does not really want to go for colonoscopy as he never had 1 before. Patient denies any gastrointestinal symptoms in the past or at present.? Although patient does admit to have occasional postprandial loose stools and bloating. Denies any personal or family history of gastrointestinal disease, colon polyps, or CRC.? Denies history of difficulty with sedation or anesthesia in the past.? Negative for history of sleep apnea.? Denies any history of renal, pulmonary, or hepatic disease.?? No history of infectious? diseases like hepatitis A, B, C, HIV or tuberculosis.? Patient is not on any anticoagulation [facility] Medical History Hx of Saucedo's palsy Peripheral ulcerative keratitis Vaccination refused by patient Other and unspecified hyperlipidemia Type 2 diabetes mellitus with unspecified complications Atherosclerotic cardiovascular disease Adult hypothyroidism HTN (hypertension) Non-ST elevation [place] (NSTEMI) Basal cell carcinoma Surgical History History of cardiac catheterization (~06/17/20) S/P CABG x 4 (~06/30/20) Family History Father Stroke Substance use disorder Mother Breast cancer HTN (hypertension) Social History Household Members: Spouse Housing: House Alcohol intake: current Alcohol intake frequency: a few times a week Alcohol type: wine Patient Tobacco Use Status: Never used Tobacco e-Cigarette/Vaping Use: Never Used service: No Current occupational status: retired Cognitive needs: No Hearing needs: No Vision needs: No Physical Exam Vital Signs: Last Vital Signs Pulse 96 11/04/24 13:11 BP 146/74 H 11/04/24 13:11 Pulse Ox 97 11/04/24 13:11 Oxygen Delivery Method Room Air 11/04/24 13:11 BMI result Body Mass Index 31.8 Const General: healthy appearing, no acute distress and well developed Nutritional Appearance: well nourished Orientation/consciousness: patient oriented x3 Resp Effort & Inspection: normal respiratory effort, able to speak in complete sentences, no tracheal deviation and symmetric chest movement Auscultation: clear to auscultation bilaterally Cardio Rate: regular rate GI Inspection: Yes normal to inspection and No distended Palpation (GI): Soft to palpation, not firm, nontender and No hepatosplenomegaly present Auscultation: normal bowel sounds General: Yes no CVA tenderness Back/Spine/Pelvis Back: no CVA tenderness Skin General skin exam: elasticity normal, turgor normal and dry skin Neuro General: patient oriented x3 Psych Appearance: grossly normal Mental Status: mental status grossly normal Assessment & Plan Assessment & Plan (1) Positive colorectal cancer screening using Cologuard test: Code(s): R19.5 - Other fecal abnormalities Category: Medical (2) Screen for colon cancer: Code(s): Z12.11 - Encounter for screening for malignant neoplasm of colon (3) Postprandial diarrhea: Code(s): K52.9 - Noninfective gastroenteritis and colitis, unspecified Plan Patient denies any cardiac or respiratory symptoms.? Denies any issues with anesthesia in the past.? Denies any history of sleep apnea.? No history off infectious diseases in the past or present.? Patient is on low-dose aspirin.? Patient has a history of CAD and has seen Dr. Johnson. Last appointment was in August.? Nurse is to check with coremaking machine setter to see if he can be cleared before going for procedure. Patient denies melena, hematochezia, unintentional weight loss or ribbon like stools.? Patient reports frequent postprandial loose stools. Will order thyroid study, vitamin B12, folate, vitamin D level and CRP. Patient will think about going for colonoscopy. I will send a message to surgical schedulers to book procedure for patient and he will return in 3 months to discuss. Patient is agreeable to this plan of care and verbalizes understanding of instructions. He was given the opportunity to ask questions and all questions answered. Thank you for allowing me to participate in his care Orders: Orders TSH reflex Free T4 Today K59.00 - Constipation, unspecified Transglutaminase IgA Today R10.9 - Unspecified abdominal pain Vitamin B12 and Folate Today R19.7 - Diarrhea, unspecified Vitamin D 25-OH (D2 and D3) Today E55.9 - Vitamin D deficiency, unspecified C Reactive Protein Today K58.9 - Irritable bowel syndrome, unspecified Coding Level of Care Code New Pt Level 4 (06322) Diagnoses Positive colorectal cancer screening using Cologuard test R19.5 Screen for colon cancer Z12.11 Postprandial diarrhea K52.9 Time Spent (min) 45 Comment 35 minutes spent with patient and additional 10 minutes spent reviewing his records
== END 2024-11-04 14:05 | disposition home or self-care (01) ==
PROVIDERS: PCP Nurse Practitioner Family; Visit Provider Nurse Practitioner Family
DX: R19.5 Other fecal abnormalities (principal); K52.9 Noninfective gastroenteritis and colitis, unspecified
CPT/HCPCS: 99204

== ENCOUNTER → 2024-11-04 13:01 | Outpatient (BNVA) | payer MEDICARE, OTHER, SELFPAY | PROVIDERS: PCP Nurse Practitioner Family; Visit Provider Nurse Practitioner Family | DX: Z12.11 Encounter for screening for malignant neoplasm of colon (principal); K52.9 Noninfective gastroenteritis and colitis, unspecified; R19.5 Other fecal abnormalities | CPT/HCPCS: 99202 ==

== ENCOUNTER 2024-11-12 10:00 | Outpatient (AMB) | payer MEDICARE, OTHER, SELFPAY ==
[2024-11-12 10:04] VITALS: BP 142/76; PULSE 90; O2SAT 97; BMI 31.9
--- NOTE | 2024-11-12 10:04 | A.OFFPC_ITS ---
Vital Signs 11/12/24 10:04 Height 6 ft Weight 235 lb BMI 31.9 BP 142/76 H Blood Pressure Location Lt brachial Position Sitting Pulse 90 Pulse Source Pulse Oximeter Pulse Oximetry (%) 97 Intake Visit Reasons: 6 month follow up Intake Note: pt is here for 6 mon f/up Landscaping Manager Required: No Accompanied by: Self / Same As Patient Allergies Penicillins [PCN] Allergy (Unknown, Verified 11/12/24 10:05) RASH glipizide Adverse Reaction (Unknown, Verified 11/12/24 10:05) Nausea/Loss of appetite metformin Adverse Reaction (Unknown, Verified 11/12/24 10:05) GI upset Medication List - Last Reconciled 11/12/24 by Cash Milan, OFFICE RECEPTIONIST- albuterol sulfate 90 mcg/actuation (Ventolin HFA) 2 puffs inhalation Q6H PRN aspirin 81 mg PO Q2D atorvastatin 80 mg PO BEDTIME flash glucose scanning reader ([employer] Ash 14 Day [place]) As directed flash glucose sensor ([employer] Ash 14 Day Sensor kit) As directed fluorometholone 0.1% drps ophthalmic (eye) insulin aspart (niacinamide) 100 unit/mL (3 mL) (Fiasp FlexTouch U-100 Insulin) subcut insulin degludec (Tresiba FlexTouch U-200 insulin) 40 units subcut DAILY levothyroxine 37.5 mcg (1/2 x 75 mcg) PO DAILY lisinopril 20 mg PO DAILY 90 days nitroglycerin 0.4 mg sublingual Q5M PRN 10 days pen needle, diabetic (BD Tanya 2nd Gen Pen Needle) As directed pyridoxine (vitamin B6) 100 mg PO DAILY tadalafil 5 mg PO DAILY Tobacco use date assessed: 11/12/24 Fall risk assessment: No Falls in past year Last assessed Fall Risk: 11/12/24 Dental Screening Dental Screen Date: 11/12/24 Did you have a dental visit in the last 12 months?: Yes Did you have a dental problem in the last 6 months where you did not have access to dental care?: No Was dental information given to patient?: Patient has dentist HPI 6 month follow up HPI Details Chief Complaint Concern regarding elevated blood pressure readings at home. History of Present Illness The patient is a 69-year-old male presenting with concerns related to hypertension management. He has a history of Essential Hypertension and reports elevated blood pressure readings at home. Despite current therapy with lisinopril 10 mg, his blood pressure remains high. He denies any chest pain, shortness of breath, headaches, blurred vision, fevers, or chills indicating he is asymptomatic aside from hypertension. His past medical history includes diabetes mellitus, for which he follows up regularly with [facility], and his last recorded A1c was 8.5%. He also monitors thyroid function and is contemplating an increase in levothyroxine dosage. The patient has an established follow-up arrangement with a computer teacher and a urologist. He expresses interest in pursuing preventive screening with a colon screening procedure, facilitated by his edge sawyer. Social History Health Maintenance - Regular follow-up with kersey department supervisor for diabetes management. - Considers preventive colon screening t hrough edge sawyer. - Ongoing monitoring of thyroid function with potential levothyroxine adjustment. Review of Systems - Cardiovascular: Denies chest pain. - Respiratory: Denies shortness of breat h. - Neurological: Denies headaches or blur red vision. - General: Denies fevers or chills. Physical Exam General: Cooperative, healthy appearing, comfortable, no acute distress and well developed, obese Orientation: Patient oriented x3 Limitations: No limitations Head: Normal to inspection Ears: Hearing grossly normal bilaterally Nose: Normal external nose present Face and sinus: Normal facial exam Eyes: Appearance normal, both eyes and all related structures Neck: Normal visual inspection and Yes full ROM Respiratory: Normal respiratory effort and able to speak in complete sentences. Clear to auscultation bilaterally Cardiovascular: Regular rate and rhythm. Normal S1 and S2 GI: Normal to inspection. Soft to palpation and nontender Skin: No rashes or lesions noted Neuro: Patient oriented x3 Extremities: Normal to inspection, feet intact, +sensation with use of monofilament. trace edema to BLE Results - Labs: HbA1c: 8.5% Plan - Increase lisinopril dosage from 10 mg to 20 mg for better control of hypertension. - Continue diabetes management with endo crinologist; monitor HbA1c closely. - Monitor thyroid function closely with the possibility of adjusting levothyroxine. - Discuss upcoming colon screening with edge sawyer. - Maintain regular follow-ups with cardi ologist and urologist as part of the comprehensive management plan. Patient was informed and verbally consented to the use of an ambient scribe for clinic note documentation during this visit. Discussion Notes During the visit, we discussed the ongoing management of the patient's hypertension and the decision to increase the lisinopril dosage to 20 mg in light of persistent elevated readings. I emphasized the importance of continued monitoring of blood pressure at home. We also covered diabetes management and the significance of maintaining regular appointments with the kersey department supervisor due to the elevated A1c of 8.5%. We addressed the potential need for an increase in levothyroxine following the next thyroid function test. Additionally, the patient expressed interest in a preventive colonoscopy, which was noted for coordination with the edge sawyer. I underscored the necessity of adherence to the management plan and encouraged the patient to reach out with any concerns. Patient Instructions - Begin taking lisinopril 20 mg as presc ribed for hypertension. - Continue home monitoring of blood pres sure. - Maintain regular appointments with you r kersey department supervisor and computer teacher. - Follow up regarding thyroid function a nd potential medication adjustments. - Consider scheduling a colonoscopy scre ening as discussed. - Contact the clinic if you experience a ny new symptoms or concerns. [facility] Medical History Hx of Saucedo's palsy Peripheral ulcerative keratitis Vaccination refused by patient Other and unspecified hyperlipidemia Type 2 diabetes mellitus with unspecified complications Atherosclerotic cardiovascular disease Adult hypothyroidism HTN (hypertension) Non-ST elevation [place] (NSTEMI) Basal cell carcinoma Surgical History History of cardiac catheterization (~06/17/20) S/P CABG x 4 (~06/30/20) Family History Father Stroke Substance use disorder Mother Breast cancer HTN (hypertension) Social History Household Members: Spouse Housing: House Alcohol intake: current Alcohol intake frequency: a few times a week Alcohol type: wine Patient Tobacco Use Status: Never used Tobacco e-Cigarette/Vaping Use: Never Used service: No Current occupational status: retired Cognitive needs: No Hearing needs: No Vision needs: No Questionnaire PHQ-9 Over the last 2 weeks, how often have you been bothered by any of the following problems? 95634 - PHQ-9 Billing: Patient declined-do not bill Source: Developed by Drs. J Luis Enriquez, Linda Vance, Lior Duran and colleagues, with an educational amina from [employer]. Thrive Questionnaire Date Thrive assessed: 11/12/24 I am a: Patient What is your living situation today?: I have a steady place to live Within the past 12 months, did the food you bought not last and you didn't have the money to get more?: Never true Within the past 12 months, did you worry whether your food would run out before you got money to buy more?: Never true Do you have trouble paying for medicines?: No Do you have trouble getting transportation to medical appointments?: No Do you have trouble paying your heating and electricity bill?: No Do you have trouble taking care of your child, family member or friend?: No Do you have trouble with day-to-day activities such as bathing, preparing meals, shopping, managing finances, etc.?: No Are you currently unemployed and looking for a job?: No Are you interested in more education?: No Please select the resources that you would like help with: None Currently or been in a relationship where the following occur: No concerns reported THRIVE Score: 0 AUDIT C Alcohol Use Questionnaire (AUDIT-C) 1. How often do you have a drink containing alcohol?: Monthly or less 2. How many drinks containing alcohol do you have on a typical day when you are drinking?: 1 or 2 3. How often do you have six or more drinks on one occasion?: Never Total Score: 1 Score Reviewed/Action Taken: Yes JANNA-7 AMB Questionnaire JANNA-7 Date JANNA - 7 assessed: 11/12/24 Feeling nervous, anxious, or on edge: 1 = Several days Not being able to stop or control worryin = Not at all Worrying too much about different things: 1 = Several days Trouble relaxin = Several days Being so restless that it is hard to sit still: 0 = Not at all Becoming easily annoyed or irritable: 1 = Several days Feeling afraid as if something awful might happen: 0 = Not at all Total JANNA-7 score (0-4 normal; 5-9 mild; 10-14 moderate; 15-21 severe): 4 Source: Developed by Drs. J Luis Enriquez, Linda Vance, Lior Duran and colleagues, with an educational amina from [employer]. JANNA-7 Assessment Billing JANNA-7 Assessment Tool: JANNA-7 Assessment 14230 Physical exam (Primary Care) Vital Signs: Last Vital Signs Pulse 90 11/12/24 10:04 BP 142/76 H 11/12/24 10:04 Pulse Ox 97 11/12/24 10:04 BMI result Body Mass Index 31.9 Tobacco/Smoking Status: Tobacco use Status Tobacco use date assessed 11/12/24 11/12/24 10:07 Patient Tobacco Use Status Never used Tobacco 11/12/24 10:07 e-Cigarette/Vaping Use Never Used 11/12/24 10:07 Thrive Assessment: Date of Thrive Assessment Date Thrive assessed 11/12/24 11/12/24 10:07 Currently or been in a relationship where the following occur: No concerns reported Results AMB Hemoglobin A1c AMB Hemoglobin A1c 8.5 % Last Edit by Filippo Segovia CMA on 11/12/24 10: 33 Results Reviewed Results Reviewed: Laboratory Last Values Hgb A1c (Clinic) 8.5 % (4.0-6.0) H 11/12/24 10:18 Coding Level of Care Code Est Pt Level 3 (38940) Diagnoses Elevated TSH R79.89 Type 2 diabetes mellitus with unspecified complications E11.8 Additional Codes JANNA-7 Assessment Billing - JANNA-7 Assessment Tool: JANNA-7 Assessment 30263 ([id number]) Assessment & Plan Assessment & Plan (1) Elevated TSH: Code(s): R79.89 - Other specified abnormal findings of blood chemistry Category: Medical (2) Type 2 diabetes mellitus with unspecified complications: Code(s): E11.8 - Type 2 diabetes mellitus with unspecified complications Category: Medical Plan . Orders: Orders TSH reflex Free T4 Today E11.8 - Type 2 diabetes mellitus with unspecified complications, R79.89 - Other specified abnormal findings of blood chemistry Comprehensive Met. Panel Today R79.89 - Other specified abnormal findings of blood chemistry AMB Hemoglobin A1c Today Z13.9 - Encounter for screening, unspecified Microalbumin, Random (w Creat) Today E11.8 - Type 2 diabetes mellitus with unspecified complications, R79.89 - Other specified abnormal findings of blood chemistry Medications: Changed From lisinopril 10 mg PO DAILY 90 days 90 tabs 1RF To lisinopril 20 mg PO DAILY 90 days 90 tabs 1RF
== END 2024-11-12 10:51 | disposition home or self-care (01) ==
PROVIDERS: PCP Nurse Practitioner Family; Visit Provider Nurse Practitioner Family
DX: R79.89 Other specified abnormal findings of blood chemistry (principal); E11.8 Type 2 diabetes mellitus with unspecified complications; Z13.9 Encounter for screening, unspecified

== ENCOUNTER → 2024-11-12 10:00 | Outpatient (BNVA) | payer MEDICARE, OTHER, SELFPAY | PROVIDERS: PCP Nurse Practitioner Family; Visit Provider Nurse Practitioner Family | DX: I10 Essential (primary) hypertension (principal); E11.8 Type 2 diabetes mellitus with unspecified complications; R79.89 Other specified abnormal findings of blood chemistry | CPT/HCPCS: 83036; 96127; 99212 ==

== ENCOUNTER 2025-01-09 10:28 | Outpatient (AMB) | payer MEDICARE, OTHER, SELFPAY ==
--- NOTE | 2025-01-09 10:32 | MHC.OFFVIS ---
Vital Signs 01/09/25 10:37 Height 6 ft Weight 232 lb 12.93 oz BMI 31.6 BP 156/80 H Blood Pressure Location Rt brachial Position Sitting Pulse 98 Pulse Source Pulse Oximeter Pulse Oximetry (%) 97 Oxygen Delivery Method Room Air Intake Visit Reasons: colo screening Intake Note: ESTABLISHED PATIENT for mgmt of fecal abn. Discuss colo. Chief Complaint; C/O GI upset, nausea w/o vomiting, reflux, sx seemingly worse AM versus PM. Pt states that he has noticed certain trigger foods and is actively attempting to avoid them. Pt also has questions regarding his celiac labs. 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 Denies any issues with anesthesia in the past.? Denies any history of sleep apnea.? No history off infectious diseases in the past or present.? Patient is on low-dose aspirin.? Patient has a history of CAD and has seen Dr. Johnson. Last appointment was in August.? Nurse is to check with mortgage closer to see if he can be cleared before going for procedure. Patient denies melena, hematochezia, unintentional weight loss or ribbon like stools.? Patient reports frequent postprandial loose stools. Will order thyroid study, vitamin B12, folate, vitamin D level and CRP. Patient will think about going for colonoscopy. I will send a message to surgical schedulers to book procedure for patient and he will return in 3 months to discuss. Patient is agreeable to this plan of care and verbalizes understanding of instructions. He was given the opportunity to ask questions and all questions answered. ? Thank you for allowing me to participate in his care Orders Orders TSH reflex Free T4 Today K59.00 Transglutaminase IgA Today R10.9 Vitamin B12 and Folate Today R19.7 Vitamin D 25-OH (D2 and D3) Today E55.9 C Reactive Protein Today K58.9 TODAY'S VISIT patient is here today for follow-up and to discuss going for upper endoscopy. Discussed with patient results from his labs. Mildly low vitamin-D. Patient is taking supplement. Elevated transglutaminase, celiac suspected. Long discussion with patient about the disease process and how important it is to avoid gluten. Patient reports that he is trying since he received the phone call from our Nurse Emil. Occasional postprandial loose stools and sometimes waking up in the morning with nausea. Patient did notice that when he is following the diet he is feeling better. Patient has no questions about the prep that we discussed last visit. Colonoscopy was not booked yet. Patient will be sent to go for endoscopy. Patient has a follow-up appointment with his mortgage closer in February and we will ask for risk stratification and clearance. Patient denies any cardiac or respiratory symptoms. No issues with anesthesia in the past. [facility] Medical History (Updated 01/09/25 @ 11:21 by Nadia Lerma [facility]) ACD (adult celiac disease) Hx of Saucedo's palsy Peripheral ulcerative keratitis Vaccination refused by patient Other and unspecified hyperlipidemia Type 2 diabetes mellitus with unspecified complications Atherosclerotic cardiovascular disease Adult hypothyroidism HTN (hypertension) Non-ST elevation [place] (NSTEMI) Basal cell carcinoma Surgical History History of cardiac catheterization (~06/17/20) S/P CABG x 4 (~06/30/20) Family History Father Stroke Substance use disorder Mother Breast cancer HTN (hypertension) Social History Household Members: Spouse Housing: House Alcohol intake: current Alcohol intake frequency: a few times a week Alcohol type: wine Patient Tobacco Use Status: Never used Tobacco e-Cigarette/Vaping Use: Never Used service: No Current occupational status: retired Cognitive needs: No Hearing needs: No Vision needs: No Review of Systems Const Denies weight gain and Denies weight loss ENT Reports no additional complaints, Denies dysphagia and Denies odynophagia Card Reports no additional complaints Resp Reports no additional complaints GI Denies abdominal pain, Denies belching, Denies melena, Reports bloating, Denies change in bowel habits, Denies dysphagia, Denies excessive flatus, Denies dyspepsia, Denies heartburn, Denies diarrhea, Reports loose stools ( occasional postprandially), Denies nausea, Denies odynophagia and Denies vomiting Reports no additional complaints Musc Reports no additional complaints Neuro Reports no additional complaints Psych Reports no additional complaints Endo Reports no additional complaints Physical Exam Const General: healthy appearing and no acute distress Nutritional Appearance: obese Orientation/consciousness: patient oriented x3 Resp Effort & Inspection: normal respiratory effort, able to speak in complete sentences, no tracheal deviation and symmetric chest movement Auscultation: clear to auscultation bilaterally Cardio Rate: regular rate GI Inspection: Yes normal to inspection, No distended and Yes obesity Palpation (GI): Soft to palpation, not firm, nontender and No hepatosplenomegaly present Auscultation: normal bowel sounds General: Yes no CVA tenderness Back/Spine/Pelvis Back: no CVA tenderness Skin General skin exam: elasticity normal, turgor normal and dry skin Neuro General: patient oriented x3 Psych Appearance: grossly normal Mental Status: mental status grossly normal Results Reviewed Results Reviewed: Laboratory Tests 11/18/24 10:13 C-Reactive Protein 0.17 Vitamin B12 202 25-OH Vitamin D Total 22 L Folate 8.3 TSH 3.43 Tiss Transglutamin IgA >250.0 H Assessment & Plan Assessment & Plan (1) Positive colorectal cancer screening using Cologuard test: Code(s): R19.5 - Other fecal abnormalities Category: Medical (2) Screen for colon cancer: Code(s): Z12.11 - Encounter for screening for malignant neoplasm of colon (3) Postprandial diarrhea: Code(s): K52.9 - Noninfective gastroenteritis and colitis, unspecified (4) ACD (adult celiac disease): Code(s): K90.0 - Celiac disease Category: Medical Plan Long discussion with patient about going for upper endoscopy to evaluate the duodenum. Biopsy will be needed. Patient was educated on how to use GF scanner minal on his phone when he is shopping for food. Patient has appointment in February with his mortgage closer. Spoke with office coordinator Anny who will add clearance to appointment. Again discussed with patient his prep and what to expect day before procedure during the procedure and after. Stressed the importance of good bowel prep day before procedure. Patient will be seen after the procedure, sooner on as needed basis. He is agreeable to this plan and verbalizes understanding of instructions. He was given the opportunity to ask questions and all questions answered. Thank you for allowing me to to participate in his care Coding Level of Care Code Tele Est Pt Level 4 (84305) Complex EM visit Add On G2211 Diagnoses Positive colorectal cancer screening using Cologuard test R19.5 Screen for colon cancer Z12.11 Postprandial diarrhea K52.9 ACD (adult celiac disease) K90.0 Time Spent (min) 35 Comment 25 minutes spent with patient and additional 10 minutes spent reviewing his records
[2025-01-09 10:37] VITALS: BP 156/80; PULSE 98; O2SAT 97; BMI 31.6
== END 2025-01-09 11:51 | disposition home or self-care (01) ==
LOC: HO.HGI 10:29
PROVIDERS: PCP Nurse Practitioner Family; Visit Provider Nurse Practitioner Family
DX: K90.0 Celiac disease (principal); K52.9 Noninfective gastroenteritis and colitis, unspecified; R19.5 Other fecal abnormalities
CPT/HCPCS: 99214; G2211

== ENCOUNTER → 2025-01-09 10:28 | Outpatient (BNVA) | payer MEDICARE, OTHER, SELFPAY | PROVIDERS: PCP Nurse Practitioner Family; Visit Provider Nurse Practitioner Family | DX: Z01.818 Encounter for other preprocedural examination (principal); K52.9 Noninfective gastroenteritis and colitis, unspecified; K90.0 Celiac disease; K21.9 Gastro-esophageal reflux disease without esophagitis; I25.10 Atherosclerotic heart disease of native coronary artery without angina pectoris; R19.5 Other fecal abnormalities; R11.2 Nausea with vomiting, unspecified | CPT/HCPCS: 99212 ==

== ENCOUNTER 2025-03-12 12:22 | Outpatient (AMB) | payer MEDICARE, OTHER, SELFPAY ==
[2025-03-12 12:39] VITALS: BP 122/68; PULSE 78; BMI 31.1
--- NOTE | 2025-03-12 12:39 | MHC.OFFVIS ---
Vital Signs 03/12/25 12:39 Height 6 ft Weight 229 lb 4.492 oz BMI 31.1 BP 122/68 Blood Pressure Location Lt brachial Position Sitting Pulse 78 Pulse Source Pulse Oximeter Intake Visit Reasons: 6 mth f/up/ card clear for colon/endo Allergies Penicillins [PCN] Allergy (Unknown, Verified 01/09/25 10:32) RASH glipizide Adverse Reaction (Unknown, Verified 01/09/25 10:32) Nausea/Loss of appetite metformin Adverse Reaction (Unknown, Verified 01/09/25 10:32) GI upset Medication List - Last Reconciled 03/12/25 by Melvin Johnson MD albuterol sulfate 90 mcg/actuation (Ventolin HFA) 2 puffs inhalation Q6H PRN aspirin 81 mg PO Q2D atorvastatin 80 mg PO BEDTIME bisacodyl (Dulcolax (bisacodyl)) 20 mg (4 x 5 mg) PO ONCE 1 day flash glucose scanning reader (Ariste MedicalStyle Ash 14 Day [place]) As directed flash glucose sensor (FreeStyle Ash 14 Day Sensor kit) As directed fluorometholone 0.1% drps ophthalmic (eye) insulin aspart (niacinamide) 100 unit/mL (3 mL) (Fiasp FlexTouch U-100 Insulin) subcut insulin degludec (Tresiba FlexTouch U-200 insulin) 40 units subcut DAILY levothyroxine 37.5 mcg (1/2 x 75 mcg) PO DAILY lisinopril 20 mg PO DAILY 90 days nitroglycerin 0.4 mg sublingual Q5M PRN 10 days pen needle, diabetic (BD Tanya 2nd Gen Pen Needle) As directed polyethylene glycol 3350 (Miralax) 238 grams PO ONCE 1 day pyridoxine (vitamin B6) 100 mg PO DAILY tadalafil 5 mg PO DAILY HPI Comments Details: Bernard returns for follow-up regarding coronary artery disease. To recall, in 2019, he had anginal symptoms that led to further evaluation, leading to coronary artery bypass surgery. Otherwise, multiple cardiovascular risk factors including obesity, hypertension, diabetes, dyslipidemia. Since last seen, he states he is feeling quite good. Absolutely no cardiac symptoms. Planning to go for EGD/colonoscopy. [facility] Medical History (Updated 01/09/25 @ 11:21 by MYRA Culp-BC) ACD (adult celiac disease) Hx of Saucedo's palsy Peripheral ulcerative keratitis Vaccination refused by patient Other and unspecified hyperlipidemia Type 2 diabetes mellitus with unspecified complications Atherosclerotic cardiovascular disease Adult hypothyroidism HTN (hypertension) Non-ST elevation [place] (NSTEMI) Basal cell carcinoma Surgical History History of cardiac catheterization (~06/17/20) S/P CABG x 4 (~06/30/20) Family History Father Stroke Substance use disorder Mother Breast cancer HTN (hypertension) Social History Household Members: Spouse Housing: House Alcohol intake: current Alcohol intake frequency: a few times a week Alcohol type: wine Patient Tobacco Use Status: Never used Tobacco e-Cigarette/Vaping Use: Never Used service: No Current occupational status: retired Cognitive needs: No Hearing needs: No Vision needs: No Review of Systems Const Denies weakness ENT Denies dizziness Card Denies chest pain, Denies chest pain with activity, Denies syncope, Denies rapid heart rate, Denies pedal edema, Denies edema, Denies leg edema, Denies lightheadedness, Denies palpitations, Denies dyspnea, Denies dyspnea on exertion and Denies orthopnea Resp Denies cough, Denies dyspnea and Denies dyspnea on exertion GI Denies hematochezia and Denies change in stool character Musc Denies abnormal gait, Denies muscle cramps, Denies muscle weakness, Denies numbness, Denies radiating pain into limb and Denies tingling Neuro Denies abnormal gait, Denies dizziness, Denies syncope, Denies numbness, Denies tingling and Denies weakness Endo Denies palpitations Physical Exam Vital Signs: Last Vital Signs Pulse 78 03/12/25 12:39 BP 122/68 03/12/25 12:39 BMI result Body Mass Index 31.1 Const General: comfortable and no acute distress Orientation/consciousness: patient oriented x3 HEENT Other: Unremarkable Head: Yes normal to inspection Neck Neck: Yes normal visual inspection Chest Chest palpation & inspection: normal inspection of the chest Resp Auscultation: clear to auscultation bilaterally Cardio Palpation: normal PMI Heart sounds: S1 normal heart sound present, S2 normal heart sound present, no gallops, no murmurs and no rubs GI Palpation (GI): Soft to palpation Back/Spine/Pelvis Other: unremarkable Skin General skin exam: no rashes or lesions noted Neuro General: patient oriented x3 Extrem General: Yes normal to inspection Psych Mental Status: mental status grossly normal Assessment & Plan Assessment & Plan (1) Atherosclerotic cardiovascular disease: Code(s): I25.10 - Atherosclerotic heart disease of [place] coronary artery without angina pectoris Category: Medical Plan: Status post CABG from 2020. Stable. Free of angina. (2) Essential hypertension: Code(s): I10 - Essential (primary) hypertension Category: Medical Plan: Last time, we can increase the lisinopril. Blood pressure seems fine today. He will continue to monitor them at home. (3) Type 2 diabetes mellitus with unspecified complications: Code(s): E11.8 - Type 2 diabetes mellitus with unspecified complications Category: Medical Plan: Remains on insulin. Last hemoglobin A1c is still 8.5%. Higher than ideal. (4) Other and unspecified hyperlipidemia: Code(s): E78.5 - Hyperlipidemia, unspecified Category: Medical Plan: LDL 70 mg/dL. Triglycerides 47 mg/dL. On statins. Has had some issues would Zetia in the past. (5) Preoperative cardiovascular examination: Code(s): Z01.810 - Encounter for preprocedural cardiovascular examination Category: Medical Plan: Low to intermediate cardiac risk for GI procedures. May proceed. We discussed about this today. Coding Level of Care Code Est Pt Level 4 (76790) Complex EM visit Add On G2211 Diagnoses Atherosclerotic cardiovascular disease I25.10 Essential hypertension I10 Type 2 diabetes mellitus with unspecified complications E11.8 Other and unspecified hyperlipidemia E78.5 Preoperative cardiovascular examination Z01.810
== END 2025-03-12 12:54 | disposition home or self-care (01) ==
LOC: HO.HCS 12:23
PROVIDERS: PCP Nurse Practitioner Family; Visit Provider Internal Medicine
DX: I25.10 Atherosclerotic heart disease of native coronary artery without angina pectoris (principal); I10 Essential (primary) hypertension; E11.8 Type 2 diabetes mellitus with unspecified complications; E78.5 Hyperlipidemia, unspecified; Z01.810 Encounter for preprocedural cardiovascular examination
CPT/HCPCS: 99214; G2211

== ENCOUNTER → 2025-03-12 12:22 | Outpatient (BNVA) | payer MEDICARE, OTHER, SELFPAY | PROVIDERS: PCP Nurse Practitioner Family; Visit Provider Internal Medicine | DX: Z01.810 Encounter for preprocedural cardiovascular examination (principal); I25.10 Atherosclerotic heart disease of native coronary artery without angina pectoris; I10 Essential (primary) hypertension; E11.8 Type 2 diabetes mellitus with unspecified complications; E78.5 Hyperlipidemia, unspecified; Z95.1 Presence of aortocoronary bypass graft | CPT/HCPCS: 99212 ==

== ENCOUNTER 2025-03-28 10:20 | Day surgery (SDC) | payer MEDICARE, OTHER, SELFPAY ==
--- NOTE | 2025-03-27 12:19 | P.CONAN_ITS ---
Documented by User: Sarah Seth NP 03/27/25 12:23 HPI - Anesthesia Eval Consult details Narrative: 69yo M for Upper Endoscopy and Colonoscopy Cardiac optimized to proceed. 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 (Acute) Peripheral ulcerative keratitis (Acute) Microscopic hematuria (Acute) Recurrent bronchospasm (Acute) Left carotid artery stenosis (Acute) BPH (benign prostatic hyperplasia) (Acute) Renal cyst, acquired, left (Acute) Bilateral kidney stones (Acute) Saucedo's palsy (Acute) Intracranial atherosclerosis (Acute) Cerebral microvascular disease (Acute) Stenosis of left vertebral artery (Acute) Renal cyst (Acute) Hx of renal calculi (Acute) Other and unspecified hyperlipidemia (Acute) Type 2 diabetes mellitus with unspecified complications (Acute) Essential hypertension (Acute) Non-ST elevation [place] (NSTEMI) (Acute) Atherosclerotic cardiovascular disease (Acute) Diabetes (Acute) Past Medical History Medical History ACD (adult celiac disease) Hx of Saucedo's palsy Peripheral ulcerative keratitis Vaccination refused by patient Other and unspecified hyperlipidemia Type 2 diabetes mellitus with unspecified complications Atherosclerotic cardiovascular disease Adult hypothyroidism HTN (hypertension) Non-ST elevation [place] (NSTEMI) Basal cell carcinoma Family History Family History Father Stroke Substance use disorder Mother Breast cancer HTN (hypertension) Surgical History Surgical History History of cardiac catheterization (~06/17/20) S/P CABG x 4 (~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 If so, by whom?: No Are you DNR?: No Advance Directives: No Advance Directives Information Provided: Yes Poor oral hygiene: No service: No Current occupational status: retired Cognitive needs: No Hearing needs: No Vision needs: No Meds Allergies Allergy/AdvReac Type Severity Reaction Status Date / Time Penicillins [PCN] Allergy Unknown RASH Verified 03/28/25 10:39 glipizide AdvReac Unknown Nausea/Loss Verified 03/28/25 10:39 of appetite metformin AdvReac Unknown GI upset Verified 03/28/25 10:39 Home Medications ?Medication ?Instructions ?Recorded ?Confirmed ?Last Taken ?Type aspirin 81 mg tablet,delayed 81 mg PO Q2D 11/18/20 03/28/25 03/21/25 History release fluorometholone 0.1 % eye drp ophthalmic (eye) 10/09/23 03/12/25 Unknown History drops,suspension insulin degludec 200 unit/mL (3 40 unit subcut DAILY 11/06/23 03/28/25 Unknown History mL) subcutaneous pen (Tresiba FlexTouch U-200 insulin) insulin aspart subcut 04/09/24 03/12/25 Unknown History (niacinamide)(U-100) 100 unit/mL(3 mL) subcutaneous pen (Fiasp FlexTouch U-100 Insulin) pen needle, diabetic 32 gauge x #1,200 ea 11/04/24 03/28/25 Unknown History (BD Tanya 2nd Gen Pen Needle) tadalafil 5 mg tablet 5 mg PO DAILY 11/04/24 03/28/25 Unknown History Exam Pertinent Lab Results Pertinent Lab Results: Laboratory Tests 08/22/24 10/15/24 09:54 10:55 WBC 8.4 Hgb 16.0 Hct 48.0 Plt Count 308 Sodium 138 Potassium 4.4 Chloride 104 Carbon Dioxide 26 BUN 13 Creatinine 0.83 Narrative Narrative: EKG 08/2024 EKG Details: EKG with underlying sinus rhythm at 97/Min; can not exclude old anterior infarct; normal OK and corrected QT. Assessment and Plan Assessment Anesthesia Assessment: Chart Reviewed Documented by User: Carmelita Knight MD 03/28/25 11:01 COUNTS INCLUDE 234 BEDS AT [facility] Past Medical History Medical History ACD (adult celiac disease) Hx of Saucedo's palsy Peripheral ulcerative keratitis Vaccination refused by patient Other and unspecified hyperlipidemia Type 2 diabetes mellitus with unspecified complications Atherosclerotic cardiovascular disease Adult hypothyroidism HTN (hypertension) Non-ST elevation [place] (NSTEMI) Basal cell carcinoma Family History Family History Father Stroke Substance use disorder Mother Breast cancer HTN (hypertension) Family history of problems with anesthesia: No Surgical History Surgical History History of cardiac catheterization (~06/17/20) S/P CABG x 4 (~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 If so, by whom?: No Are you DNR?: No Advance Directives: No Advance Directives Information Provided: Yes Poor oral hygiene: No service: No Current occupational status: retired Cognitive needs: No Hearing needs: No Vision needs: No Meds Allergies Allergy/AdvReac Type Severity Reaction Status Date / Time Penicillins [PCN] Allergy Unknown RASH Verified 03/28/25 10:39 glipizide AdvReac Unknown Nausea/Loss Verified 03/28/25 10:39 of appetite metformin AdvReac Unknown GI upset Verified 03/28/25 10:39 Home Medications ?Medication ?Instructions ?Recorded ?Confirmed ?Last Taken ?Type aspirin 81 mg tablet,delayed 81 mg PO Q2D 11/18/20 03/28/25 03/21/25 History release fluorometholone 0.1 % eye drp ophthalmic (eye) 10/09/23 03/12/25 Unknown History drops,suspension insulin degludec 200 unit/mL (3 40 unit subcut DAILY 11/06/23 03/28/25 Unknown History mL) subcutaneous pen (Tresiba FlexTouch U-200 insulin) insulin aspart subcut 04/09/24 03/12/25 Unknown History (niacinamide)(U-100) 100 unit/mL(3 mL) subcutaneous pen (Fiasp FlexTouch U-100 Insulin) pen needle, diabetic 32 gauge x #1,200 ea 11/04/24 03/28/25 Unknown History (BD Tanya 2nd Gen Pen Needle) tadalafil 5 mg tablet 5 mg PO DAILY 11/04/24 03/28/25 Unknown History Exam Airway Mallampati Class: II (missing a couple teeth, denies anything loose) TM Dist: >3cm Neck ROM: Full Heart: rrr Lungs: cta Assessment and Plan Assessment Anesthesia Assessment: Anesthesia Plan Discussed Final Anesthetic Review Family History of Problems with Anesthesia: No History of Problems with Anesthesia: No NPO: Yes ASA Class: III Final Preanesthetic Review: No Changes in Pt Med Stat, Meds/Allgs Chart Reviewed and Consent Obtained/Reviewed Patient Risk: Low Procedure Risk: Low Anesthetic Plan Anesthetic Plan: MAC: Disposition: Standard PACU
[2025-03-28 10:42] VITALS: BMI 31.5
[2025-03-28 10:52] LABS: Glucose, Whole Blood 198 mg/dL (60-115)
[2025-03-28] MEDS: Lactated Ringers 1,000 ML 100 ML IVCONT (11:00)
--- NOTE | 2025-03-28 11:19 | MHC.SHP ---
Pre-Procedural Eval Section A - 24 Hr Update-Section A only Date of Service: 03/28/25 The patient is an INPATIENT: No The patient has been examined within 24 hours of the surgical procedure. The History & Physical has been completed within 30 days and I have reviewed it.: No Section B - Complete if H&P > 30 days Chief Complaint: Other fecal abnormalities Relevant Family History (Specify if Yes): No Relevant Social History: None Present Medications: see Short Stay Collaborative assessment Medical History: Significant History (ACD (adult celiac disease) Hx of Saucedo's palsy Peripheral ulcerative keratitis Vaccination refused by patient Other and unspecified hyperlipidemia Type 2 diabetes mellitus with unspecified complications Atherosclerotic cardiovascular disease Adult hypothyroidism HTN (hypertension) Non-ST elevation [place]) History of Previous Operations: Relevant previous surgery/procedure and date(s) (History of cardiac catheterization (~06/17/20) S/P CABG x 4 (~06/30/20)) Allergies: Allergies Allergy/AdvReac Type Severity Reaction Status Date / Time Penicillins [PCN] Allergy Unknown RASH Verified 03/28/25 10:39 glipizide AdvReac Unknown Nausea/Loss Verified 03/28/25 10:39 of appetite metformin AdvReac Unknown GI upset Verified 03/28/25 10:39 Review of Systems Sugical H&P ROS: Negative: Constitution, Cardiovascular, Respiratory and Gastrointestinal Exam Surgical H&P Exam: Normal: Heart, Normal: Lungs, Normal: Extremities and Normal: Abdomen Plan Diagnosis/Plan: Unchanged I have reviewed the history and physical and performed a pertinent physical examination on my patient. No changes have occurred unless specified. Time Spent With Patient Time: Total time managing care of this patient today ____ minutes.
--- NOTE | 2025-03-28 11:37 | HO.OPN-COLON ---
Colonoscopy Operative Note Operative Note Date of Service: 03/28/25 Narrative: FLEXIBLE TRANSORAL UPPER GASTROINTESTINAL ENDOSCOPY WITH BIOPSIES AND COLONOSCOPY TILL CECUM WITH SNARE POLYPECTOMY, SUBMUCOSAL INJECTION, APC TREATMENT AND HEMOCLIP PLACEMENT Pre-op diagnosis: Positive Cologuard test, elevated TTG, abdominal bloating Post-op diagnosis: Gastritis, multiple duodenal ulcers Colon Polyps, Diverticulosis, hemorrhoids Endoscopist:? Brenda Maldonado MD Anesthesia:?MAC UPPER ENDOSCOPY Consent: Indications for the procedure and potential complications of bleeding, perforation, reaction to medications and missed diagnosis were discussed with the patient and informed consent was obtained. Instrument: Olympus GIF H 190 mid size upper endoscope Monitoring: Vital signs and clinical assessment, continuous EKG monitoring, Pulse oximetry, Carbon Dioxide monitoring and blood pressure monitoring were done throughout the procedure. Procedure: The patient was placed in the left lateral decubitis position and pre-procedure medications were administered and a bite block was placed. The endoscope was inserted into the mouth and advanced under direct vision to the third part of duodenum. A careful inspection was made as the upper endoscope was withdrawn including a retroflexed examination of the proximal stomach; Findings and interventions are described below. Findings: Larynx: Normal Esophagus: GE junction at 44 cms. No esophagitis or Kim's. Stomach: Moderate diffuse gastric erythema - biopsies were obtained from the antrum. Grade 2 flap valve on retroflexed examination of the cardia. Duodenum: Multiple 5 to 10 mm superficial ulcers in the bulb and descending duodenum Biopsies were obtained from descending duodenum to check for celiac sprue Intervention: Biopsies as noted above COLONOSCOPY PROCEDURE NOTE Instrument: Olympus CF H 190 L variable stiffness adult colonoscope Monitoring: Vital signs and clinical assessment, intermittent blood pressure monitoring, continuous EKG monitoring, Pulse oximetry and Carbon Dioxide monitoring were done throughout the procedure. Please see anesthesia flowsheet. Colon withdrawl time was 45 minutes. Procedure: The patient was placed in the left lateral decubitis position and pre-procedure medications were administered. After a digital rectal examination of the ano-rectum, the video colonoscope was inserted into the rectum and advanced through the colon to the cecum. The colonoscope was slowly withdrawn in a retrograde panoramic fashion and the colon mucosa was carefully examined including a retroflexed view of the rectum. Findings and interventions are described below. Procedure Difficulty: without difficulty Findings: Terminal Ileum: Not evaluated Cecum: Normal Ascending Colon: Normal Transverse Colon: A 2.5 cms sessile polyp at 95 cms - removed with a stiff hot snare Polypectomy site was closed with 1 hemoclip and marked with Adele ink. Two 8 to 10 mm sessile polyps - removed with a hot snare. A 2.5 cms flat polyp at 75 cms - raised with 4 cc of Eleview and removed piecemeal with a hot snare. Edges of polypectomy site was treated with APC and closed with 2 hemoclips and marked with Adele ink Descending Colon: Moderate diverticulosis Sigmoid Colon: A few additional 5 to 10 mm sessile polyps in the left colon - not removed due to excessive length of procedure. Moderate diverticulosis Rectum: Normal Ano-rectum: Moderate internal hemorrhoids Colon preparation: Good after copious irrigation. [place] Bowel Preparation Scale Right colon; 2 Transverse colon: 2 Left colon; 2 (0 = Unprepared colon segment with mucosa not seen due to solid stool that cannot be cleared. 1 = Portion of mucosa of the colon segment seen, but other areas of the colon segment not well seen due to staining, residual stool and/or opaque liquid. 2 = Minor amount of residual staining, small fragments of stool and/or opaque liquid, but mucosa of colon segment seen well. 3 = Entire mucosa of colon segment seen well with no residual staining, small fragments of stool or opaque liquid) Impression and Post Procedure Diagnosis: Endoscopy Findings: ESOPHAGUS: Normal STOMACH: Moderate gastritis DUODENUM: Multiple 5 to 10 mm superficial ulcers in the bulb and descending duodenum Biopsies were obtained from descending duodenum to check for celiac sprue Colonoscopy Findings: Four medium sized polyps were removed A few additional 5 to 10 mm sessile polyps in the left colon - not removed due to excessive length of procedure. Moderate diverticulosis seen in the left colon Moderate hemorrhoids on retroflexed exam. Plan: Pt to schedule a FU appointment with Jody Lerma. Repeat EGD and Colonoscopy in 6 months if polyps are adenomatous and to remove additional polyps. Pt was advised to start Omeprazole 20 mg daily for Peptic ulcer disease. A summary of above findings and relevant handouts were given to the patient. BIOPSIES SHOWED: A. Small bowel, biopsy: Moderate chronic duodenitis with mild villous blunting and features suggestive of a peptic etiology; no increased intraepithelial lymphocytes seen. B. Duodenum, ulcer, biopsy: Moderate chronic active duodenitis with foveolar metaplasia and mild villous blunting in keeping with a peptic etiology; no increased intraepithelial lymphocytes seen. C. Stomach, antrum, biopsy: Gastric antral mucosa with mild chronic inactive gastritis; negative for Helicobacter pylori, intestinal metaplasia and dysplasia. D. Stomach, body, biopsy: Gastric body mucosa within normal limits; negative for Helicobacter pylori, intestinal metaplasia and dysplasia. E. Colon, transverse polyp at 95 cm, polypectomy: Tubular adenoma, multiple fragments; negative for high-grade dysplasia. F. Colon, transverse, polypectomies: Polypoid fragments of colonic mucosa with dilated submucosal lymphatics, otherwise within normal limits; negative for a hyperplastic or neoplastic process. G. Colon, transverse polyp at 75 cm, polypectomy: Tubular adenoma, multiple fragments; negative for high-grade dysplasia. COMMENT (B&C): Diagnostic features of celiac disease are not seen Pt placed on the recal list for repeat EGD and Colon in 6 months.
[2025-03-28 12:40] VITALS: BP 164/90; PULSE 80; RESP 12; TEMP 36.8; O2SAT 97
[2025-03-28 12:55] VITALS: BP 163/95; PULSE 88; RESP 20; TEMP 37; O2SAT 98
== END 2025-03-28 14:03 | disposition home or self-care (01) ==
PROVIDERS: PCP Nurse Practitioner Family; Visit Provider Internal Medicine Gastroenterology
PROC: (CPT 45385; principal; 2025-03-28 12:00)
DX: R19.5 Other fecal abnormalities (principal); D12.3 Benign neoplasm of transverse colon; K57.30 Diverticulosis of large intestine without perforation or abscess without bleeding; K64.8 Other hemorrhoids; K29.60 Other gastritis without bleeding; K29.80 Duodenitis without bleeding; K26.9 Duodenal ulcer, unspecified as acute or chronic, without hemorrhage or perforation; K52.9 Noninfective gastroenteritis and colitis, unspecified; E11.9 Type 2 diabetes mellitus without complications; I10 Essential (primary) hypertension; E78.5 Hyperlipidemia, unspecified; Z79.899 Other long term (current) drug therapy; Z79.82 Long term (current) use of aspirin; Z79.4 Long term (current) use of insulin; Z95.1 Presence of aortocoronary bypass graft
CPT/HCPCS: 45385; 45381; 43239; 82947; 88305; 88313; 88342; J2003; J2704

== ENCOUNTER → 2025-03-28 10:20 | Outpatient (BNV) | payer MEDICARE, OTHER, SELFPAY | PROVIDERS: PCP Nurse Practitioner Family; Visit Provider Internal Medicine Gastroenterology | DX: Z12.11 Encounter for screening for malignant neoplasm of colon (principal); R19.5 Other fecal abnormalities; D12.3 Benign neoplasm of transverse colon; D12.5 Benign neoplasm of sigmoid colon; K57.90 Diverticulosis of intestine, part unspecified, without perforation or abscess without bleeding; K64.8 Other hemorrhoids; R14.0 Abdominal distension (gaseous); K29.70 Gastritis, unspecified, without bleeding; K26.9 Duodenal ulcer, unspecified as acute or chronic, without hemorrhage or perforation | CPT/HCPCS: 43239; 45381; 45385 ==

== ENCOUNTER 2025-05-16 13:29 | Outpatient (AMB) | payer MEDICARE, OTHER, SELFPAY ==
--- OUTSIDE RECORDS SUMMARY | 2025-05-16 13:31 | XMS_ITS | Clinical Summary ---
Author Organization [facility] Address [address] [place] [id number] Phone Care Team Providers Care Baggage Agent Name Role Phone Cash Milan INTERNET SALES ASSOCIATE Primary Care Provider + Melvin Johnson MD Unavailable [phone] Social History Tobacco Use Types Packs/Day Years Used Date Smoking Tobacco: Never Assessed Education Answer Date Recorded Are you interested in more education? Not on ruthann e 02/24/2023 Are you concerned about learning? Not on file 02/24/2023 No 02/24/2023 No 02/24/2023 Digital Access Answer Date Recorded No 03/25/2023 No 03/25/2023 No 03/25/2023 Reliable internet access at home? Not on file 03/25/2023 Device with a working camera? Not on file Sex and Gender Information Value Date Recorded Sex Assigned at Male 06/22/2020 8:54 AM EDT Legal Sex Male 8:44 AM EDT Gender Identity Male 06/22/2020 8:54 AM EDT Sexual Orientation Choose not to disclose 2019 8:54 AM EDT Plan of Treatment Health Maintenance Due Date Last Done Comments Adult Td,Tdap Booster 1955 LIPID PANEL 1953 DEPRESSION SCREENING 1965 SMOKING Hx and SMOKELESS TOBACCO SCREENING 1966 HEPATITIS C SCREENING 1971 COLOGUARD 1998 COLONOSCOPY 1998 COLORECTAL CANCER SCREENING 1998 FIT TEST 1998 FOBT 1998 SIGMOIDOSCOPY 1998 VIRTUAL COLONOSCOPY 1998 PNEUMOCOCCAL VACCINES (50+ years) (1 of 1 - PCV) 2003 ZOSTER VACCINES (1 of 2) 2003 COVID-19 VACCINE (3 - 2023-2 5 season) 2024 02/24/2021, 02/03/2021 RSV VACCINE (1 - 1-dose 75+ series) 2028 HEPATITIS A VACCINES Aged Out No long er eligible based on patient's age to complete this topic HIB VACCINES Aged Out No longer eligi ble based on patient's age to complete this topic MENINGOCOCCAL VACCINES (ACWY) Aged Out No longer eligible based on patient's age to complete this topic MENINGOCOCCAL VACCINES (B) Aged Out N o longer eligible based on patient's age to complete this topic Medical Devices Not on file Insurance MEDICARE PART A & B [facility] G[facility] EXTENSION MEDICARE SUPPLEMENT MEDICARE PART A & B [employer] MEDICARE SUPPLEMENT MEDICARE PART A & B [address] EXTENSION MEDICARE SUPPLEMENT [facility] MEDICARE SUPPLEMENT [facility] EXTENSION MEDICARE SUPPLEMENT MEDICARE PART A & B [facility] EXTENSION MEDICARE SUPPLEMENT [employer] MEDICARE SUPPLEMENT [address] EXTENSION MEDICARE SUPPLEMENT [facility] EXTENSION MEDICARE SUPPLEMENT Care Teams Baggage Agent Relationship Specialty Start Date End Date Cash Milan NP [address] [place] [address] [place] [address] [email or web address] PCP - General Family Medicine 06/22/20 Melvin Johnson MD [address] [place] [id number] High Pressure Kettle Operator Cardiology 06/22/20 Additional Source Comments The information contained in this document represents components of the legal health record. It is not the complete legal health record.[facility]
--- OUTSIDE RECORDS SUMMARY | 2025-05-16 13:32 | XMS_ITS | Clinical Summary ---
Author Organization [facility] Address [address] [place] [id number] Care Team Providers Care Raw Juice Weigher Name Role Phone Cash Milan Primary Care Provider [phone] Allergies Active Allergy Reactions Criticality Noted Date Comments Penicillins 10/22/2018 Medications aspirin chewable 81 mg tablet Take 81 mg by mouth daily. Active Social History Tobacco Use Types Packs/Day Years Used Date Smoking Tobacco: Never Smokeless Tobacco: Never Alcohol Use Standard Drinks/Week Comments Yes 0 (1 standard drink = 0.6 oz pur e alcohol) occ Interpersonal Safety Answer Date Record ed Physically Hurt Never 06/01/2020 Verbally Threaten Not on file 06/01/2020 Sex and Gender Information Value Date Recorded Sex Assigned at Not on file Legal Sex Male 16:51 EST Gender Identity Not on file Sexual Orientation Not on file Obstetrics History Last Filed Vital Signs Vital Sign Reading Time Taken Comments Blood Pressure 158/81 10/22/20181948 EST Pulse 100 10/22/2018 194 EST Temperature 36.9 C (98.4 F) 10/22/2018 1706 EST Respiratory Rate 16 10/22/2018 194 EST Oxygen Saturation 97% 10/22/2018 194 EST Inhaled Oxygen Concentration - - Weight 105.2 kg (232 lb) 10/22/2018 1706 EST Height 180.3 cm (5' 11 ) 10/22/2018 1706 EST Body Mass Index 32.36 10/22/2018 1706 EST Plan of Treatment Health Maintenance Due Date Last Done Comments Hepatitis C Screen 1955 Fall Risk Screening 2018 COVID-19 Vaccine (2023- season) 2024 RSV Immunization ( o r 60+ Years) (1 - 1-dose 75+ series) 2028 Care Teams Raw Juice Weigher Relationship Specialty Start Date End Date Cash Milan PCP - General 10/26/18
--- NOTE | 2025-05-16 13:38 | MHC.OFFVIS ---
Vital Signs 05/16/25 13:46 Height 6 ft Weight 234 lb BMI 31.7 BP 156/72 H Blood Pressure Location Lt brachial Position Sitting Pulse 101 H Pulse Oximetry (%) 101 H Oxygen Delivery Method Room Air Intake Visit Reasons: s/p double Intake Note: Patient s/p double results. Patient cc: abdominal discomfort in the morning, little bloating and diarrhea come and go. Steward/Stewardess Third Required: No Accompanied by: Spouse Allergies Penicillins (PCN) Allergy (Unknown, Verified 05/16/25 13:38) RASH glipizide Adverse Reaction (Unknown, Verified 05/16/25 13:38) Nausea/Loss of appetite metformin Adverse Reaction (Unknown, Verified 05/16/25 13:38) GI upset HPI HPI s/p double: Details: LAST VISIT Positive colorectal cancer screening using Cologuard test Screen for colon cancer Postprandial diarrhea ACD (adult celiac disease) Plan Long discussion with patient about going for upper endoscopy to evaluate the duodenum. Biopsy will be needed. Patient was educated on how to use Match[employer] scanner minal on his phone when he is shopping for food. Patient has appointment in February with his supervisor [employer]. Spoke with executive vice president and chief operating officer Anny who will add clearance to appointment. Again discussed with patient his prep and what to expect day before procedure during the procedure and after. Stressed the importance of good bowel prep day before procedure. Patient will be seen after the procedure, sooner on as needed basis. He is agreeable to this plan and verbalizes understanding of instructions. He was given the opportunity to ask questions and all questions answered. ? UPPER ENDOSCOPY AND COLONOSCOPY Findings: Larynx: Normal Esophagus: GE junction at 44 cms. No esophagitis or Kim's. Stomach: Moderate diffuse gastric erythema - biopsies were obtained from the antrum. Grade 2 flap valve on retroflexed examination of the cardia. Duodenum: Multiple 5 to 10 mm superficial ulcers in the bulb and descending duodenum Biopsies were obtained from descending duodenum to check for celiac sprue Intervention: Biopsies as noted above COLONOSCOPY PROCEDURE NOTE Instrument: Olympus CF H 190 L variable stiffness adult colonoscope Monitoring: Vital signs and clinical assessment, intermittent blood pressure monitoring, continuous EKG monitoring, Pulse oximetry and Carbon Dioxide monitoring were done throughout the procedure. Please see anesthesia flowsheet. Colon withdrawl time was 45 minutes. Procedure: The patient was placed in the left lateral decubitis position and pre-procedure medications were administered. After a digital rectal examination of the ano-rectum, the video colonoscope was inserted into the rectum and advanced through the colon to the cecum. The colonoscope was slowly withdrawn in a retrograde panoramic fashion and the colon mucosa was carefully examined including a retroflexed view of the rectum. Findings and interventions are described below. Procedure Difficulty: without difficulty Findings: Terminal Ileum: Not evaluated Cecum: Normal Ascending Colon: Normal Transverse Colon: A 2.5 cms sessile polyp at 95 cms - removed with a stiff hot snare Polypectomy site was closed with 1 hemoclip and marked with Adele ink. Two 8 to 10 mm sessile polyps - removed with a hot snare. A 2.5 cms flat polyp at 75 cms - raised with 4 cc of Eleview and removed piecemeal with a hot snare. Edges of polypectomy site was treated with APC and closed with 2 hemoclips and marked with Adele ink Descending Colon: Moderate diverticulosis Sigmoid Colon: A few additional 5 to 10 mm sessile polyps in the left colon - not removed due to excessive length of procedure. Moderate diverticulosis Rectum: Normal Ano-rectum: Moderate internal hemorrhoids Colon preparation: Good after copious irrigation. [place] Bowel Preparation Scale Right colon; 2 Transverse colon: 2 Left colon; 2 (0 = Unprepared colon segment with mucosa not seen due to solid stool that cannot be cleared. 1 = Portion of mucosa of the colon segment seen, but other areas of the colon segment not well seen due to staining, residual stool and/or opaque liquid. 2 = Minor amount of residual staining, small fragments of stool and/or opaque liquid, but mucosa of colon segment seen well. 3 = Entire mucosa of colon segment seen well with no residual staining, small fragments of stool or opaque liquid) Impression and Post Procedure Diagnosis: Endoscopy Findings: ESOPHAGUS: Normal STOMACH: Moderate gastritis DUODENUM: Multiple 5 to 10 mm superficial ulcers in the bulb and descending duodenum Biopsies were obtained from descending duodenum to check for celiac sprue Colonoscopy Findings: Four medium sized polyps were removed A few additional 5 to 10 mm sessile polyps in the left colon - not removed due to excessive length of procedure. Moderate diverticulosis seen in the left colon Moderate hemorrhoids on retroflexed exam. Plan: Repeat EGD and Colonoscopy in 6 months if polyps are adenomatous and to remove additional polyps. Pt was advised to start Omeprazole 20 mg daily for Peptic ulcer disease. A summary of above findings and relevant handouts were given to the patient. BIOPSIES SHOWED: A. Small bowel, biopsy: Moderate chronic duodenitis with mild villous blunting and features suggestive of a peptic etiology; no increased intraepithelial lymphocytes seen. B. Duodenum, ulcer, biopsy: Moderate chronic active duodenitis with foveolar metaplasia and mild villous blunting in keeping with a peptic etiology; no increased intraepithelial lymphocytes seen. C. Stomach, antrum, biopsy: Gastric antral mucosa with mild chronic inactive gastritis; negative for Helicobacter pylori, intestinal metaplasia and dysplasia. D. Stomach, body, biopsy: Gastric body mucosa within normal limits; negative for Helicobacter pylori, intestinal metaplasia and dysplasia. E. Colon, transverse polyp at 95 cm, polypectomy: Tubular adenoma, multiple fragments; negative for high-grade dysplasia. F. Colon, transverse, polypectomies: Polypoid fragments of colonic mucosa with dilated submucosal lymphatics, otherwise within normal limits; negative for a hyperplastic or neoplastic process. G. Colon, transverse polyp at 75 cm, polypectomy: Tubular adenoma, multiple fragments; negative for high-grade dysplasia. COMMENT (B&C): Diagnostic features of celiac disease are not seen Pt placed on the recal list for repeat EGD and Colon in 6 months. [facility] Medical History (Updated 05/16/25 @ 19:38 by Nadia Lerma, [facility]) Tubular adenoma of colon ACD (adult celiac disease) Hx of Saucedo's palsy Peripheral ulcerative keratitis Vaccination refused by patient Other and unspecified hyperlipidemia Type 2 diabetes mellitus with unspecified complications Atherosclerotic cardiovascular disease Adult hypothyroidism HTN (hypertension) Non-ST elevation MS (NSTEMI) Basal cell carcinoma Surgical History (Updated 05/16/25 @ 13:39 by Nicole Noguera) Hx of colonoscopy History of esophagogastroduodenoscopy (EGD) History of cardiac catheterization (~06/17/20) S/P CABG x 4 (~06/30/20) Family History Father Stroke Substance use disorder Mother Breast cancer HTN (hypertension) Social History Household Members: Spouse Housing: House Are you a primary health care coordinator to a significant other at home: No Do you presently have visiting nurse or other home services: No Alcohol intake: current Alcohol intake frequency: a few times a week Alcohol type: wine Patient Tobacco Use Status: Never used Tobacco e-Cigarette/Vaping Use: Never Used service: No Current occupational status: retired Cognitive needs: No Hearing needs: No Vision needs: No Review of Systems Const Denies weight gain and Denies weight loss ENT Reports no additional complaints, Denies dysphagia and Denies odynophagia Card Reports no additional complaints Resp Reports no additional complaints GI Denies abdominal pain, Denies belching, Denies melena, Denies bloating, Denies change in bowel habits, Denies dysphagia, Denies excessive flatus, Denies dyspepsia, Reports heartburn, Denies diarrhea, Reports loose stools, Denies nausea, Denies odynophagia and Denies vomiting Reports no additional complaints Musc Reports no additional complaints Neuro Reports no additional complaints Psych Reports no additional complaints Endo Reports no additional complaints Physical Exam Vital Signs: Last Vital Signs Pulse 101 H 05/16/25 13:46 BP 156/72 H 05/16/25 13:46 Pulse Ox 101 H 05/16/25 13:46 Oxygen Delivery Method Room Air 05/16/25 13:46 BMI result Body Mass Index 31.7 Const General: healthy appearing and no acute distress Nutritional Appearance: obese Orientation/consciousness: patient oriented x3 Resp Effort & Inspection: normal respiratory effort, able to speak in complete sentences, no tracheal deviation and symmetric chest movement Auscultation: clear to auscultation bilaterally Cardio Rate: regular rate GI Inspection: Yes normal to inspection, No distended and Yes obesity Palpation (GI): Soft to palpation, not firm, nontender and No hepatosplenomegaly present Auscultation: normal bowel sounds General: Yes no CVA tenderness Back/Spine/Pelvis Back: no CVA tenderness Skin General skin exam: elasticity normal, turgor normal and dry skin Neuro General: patient oriented x3 Psych Appearance: grossly normal Mental Status: mental status grossly normal Assessment & Plan Assessment & Plan (1) Multiple duodenal ulcers: Code(s): K29.81 - Duodenitis with bleeding Category: Medical (2) ACD (adult celiac disease): Code(s): K90.0 - Celiac disease Category: Medical (3) Tubular adenoma of colon: Code(s): D12.6 - Benign neoplasm of colon, unspecified Category: Medical (4) GERD (gastroesophageal reflux disease): Code(s): K21.9 - Gastro-esophageal reflux disease without esophagitis Qualifiers: Esophagitis presence: without esophagitis Qualified Code(s): K21.9 - Gastro-esophageal reflux disease without esophagitis Plan Patient will continue omeprazole every morning half an hour before breakfast I will add sucralfate. Continues to have epigastric and upper abdominal discomfort postprandially. Patient will include fiber in his diet. May take fiber supplement with pre and probiotics. Low FODMAP diet discussed with patient. Patient was encouraged to avoid dietary triggers and late night snacking. Staying upright for minimum 3 hours after meals discussed with patient. Patient will follow-up in 2 months. Message sent to surgical schedulers to book upper endoscopy and colonoscopy for patient. Increase fluid intake and activity to promote better bowel motility. Continue gluten free diet. Both patient and his are agreeable to plan of care and verbalizes understanding of instructions. They were given the opportunity to ask questions and all questions answered. Thank you for allowing me to participate in his care Medications: New bisacodyl (Dulcolax (bisacodyl)) Start taking 2 tablet every night 7 days before the procedure and 1 day before procedure take 4 tablets at noon time followed by MiraLax prep 10 mg (2 x 5 mg) PO BEDTIME 16 tabs 0RF Z12.11 - Encounter for screening for malignant neoplasm of colon sucralfate 1 g PO BEDTIME 30 tabs 0RF R19.7 - Diarrhea, unspecified polyethylene glycol 3350 (Miralax) As directed by gastro[facility]ology department at [facility] 238 grams PO ONCE 238 grams 0RF Z12.11 - Encounter for screening for malignant neoplasm of colon Coding Level of Care Code Est Pt Level 4 (89452) Complex EM visit Add On G2211 Diagnoses Multiple duodenal ulcers K29.81 ACD (adult celiac disease) K90.0 Tubular adenoma of colon D12.6 Gastroesophageal reflux disease without esophagitis K21.9 Esophagitis presence: without esophagitis Time Spent (min) 40 Comment 25 minutes spent with patient and additional 15 minutes spent reviewing his records
[2025-05-16 13:46] VITALS: BP 156/72; PULSE 101; O2SAT 101; BMI 31.7
== END 2025-05-16 14:15 | disposition home or self-care (01) ==
LOC: HO.HGI 13:29
PROVIDERS: PCP Nurse Practitioner Family; Visit Provider Nurse Practitioner Family
DX: K29.81 Duodenitis with bleeding (principal); K90.0 Celiac disease; D12.6 Benign neoplasm of colon, unspecified; K21.9 Gastro-esophageal reflux disease without esophagitis
CPT/HCPCS: 99214; G2211

== ENCOUNTER → 2025-05-16 13:29 | Outpatient (BNVA) | payer MEDICARE, OTHER, SELFPAY | PROVIDERS: PCP Nurse Practitioner Family; Visit Provider Nurse Practitioner Family | DX: K29.81 Duodenitis with bleeding (principal); K90.0 Celiac disease; K21.9 Gastro-esophageal reflux disease without esophagitis; D12.6 Benign neoplasm of colon, unspecified | CPT/HCPCS: 99212 ==

== ENCOUNTER 2025-06-03 11:32 | Outpatient (REF) | payer MEDICARE, OTHER, SELFPAY ==
--- NOTE | ~2025-06-03 | US_ITS ---
CLINICAL HISTORY: N20.0 - Calculus of kidney US of kidneys Comparison: US/SR - US KIDNEY BILATERAL - 06/03/24 10:28 EDT Findings: Right kidney is normal in size, echogenicity and morphology, 11.1 cm in length. 5 mm simple cortical cyst in the upper pole, no calculus or hydronephrosis. Left kidney is slightly enlarged, 13.3 cm in length, previously 12.5 cm. Normal in echogenicity, mild hydronephrosis is new. 1.4 cm calyceal calculus in the lower pole, there is mildly shadowing echogenicity at the ureteropelvic junction 1 cm. Upper pole renal cyst without vascular flow is not well visualized, 3 cm, previously 2.3 cm. Limited color Doppler demonstrates unremarkable bilateral blood flow. Impression: 1. New mild left hydronephrosis due to 1 cm calculus at the UPJ. 2. Nonobstructing left nephrolithiasis. 3. Progressive left upper pole renal cyst, not well visualized. This document has been electronically signed by: Tequila Villavicencio MD on 06/03/2025 14:14:35
--- OUTSIDE RECORDS SUMMARY | 2025-06-03 12:23 | XMS_ITS | Clinical Summary ---
Author Organization [facility] Address [address] [place] [address] Phone Care Team Providers Care Organ Recovery Coordinator Name Role Phone Cash Milan PRODUCTION CELL LEADER Primary Care Provider + Melvin Johnson MD Unavailable [phone] Social History Tobacco Use Types Packs/Day Years [...] file Insurance MEDICARE PART A & B [facility] EXTENSION MEDICARE SUPPLEMENT MEDICARE PART A & B [employer] MEDICARE SUPPLEMENT MEDICARE PART A & B [employer] EXTENSION MEDICARE SUPPLEMENT [facility] MEDICARE SUPPLEMENT [facility] EXTENSION MEDICARE SUPPLEMENT MEDICARE PART A & B [facility] EXTENSION MEDICARE SUPPLEMENT [employer] MEDICARE SUPPLEMENT [employer] EXTENSION MEDICARE SUPPLEMENT [facility] EXTENSION MEDICARE SUPPLEMENT Care Teams Organ Recovery Coordinator Relationship Specialty Start Date End Date Cash Milan NP [address] [place] [address] [place] [address] [email or web address] PCP - General Family Medicine 06/22/20 Melvin Johnson MD [address] [place] [address] Communications Equipment Operator Cardiology 06/22/20 Additional Source Comments The information contained in this document represents components of the legal health record. It is not the complete legal health record.[facility]
--- OUTSIDE RECORDS SUMMARY | 2025-06-03 12:23 | XMS_ITS | Clinical Summary ---
Author Organization [facility] Address [address] [place] [address] Care Team Providers Care Blood Bank Attendant Name Role Phone Cash Milan Primary Care Provider [phone] Allergies Active Allergy Reactions Criticality Noted Date [...] - 1-dose 75+ series) 2028 Care Teams Blood Bank Attendant Relationship Specialty Start Date End Date Cash Milan PCP - General 10/26/18
[2025-06-03 14:43] LABS: Microalbum/Creatinine Ratio Ur 17.4 ug/mg cr (<30)
[2025-06-03 14:43] LABS: Alanine Aminotransferase 14 U/L (0-40); Albumin Level 4.0 g/dL (3.5-5.0); Alkaline Phosphatase 83 U/L (39-117); Anion Gap 15 (12-20); Aspartate Amino Transferase 18 U/L (5-37); Blood Urea Nitrogen 28 mg/dL (9-16); Calcium 8.9 mg/dL (8.4-10.2); Carbon Dioxide 23 mmol/L (22-29); Chloride 102 mmol/L (96-108); Estimated Glomerular Filt Rate 43; Potassium 4.1 mmol/L (3.3-5.1); Sodium 136 mmol/L (135-145); Total Protein 7.3 g/dL (6.5-8.0)
== END 2025-06-03 11:33 | disposition home or self-care (01) ==
LOC: HO.HMGCX 11:32
PROVIDERS: PCP Nurse Practitioner Family; Referring Provider Nurse Practitioner Family; Visit Provider Urology
DX: N20.0 Calculus of kidney (principal); E11.8 Type 2 diabetes mellitus with unspecified complications; R79.89 Other specified abnormal findings of blood chemistry
CPT/HCPCS: 36415; 76775; 80053; 82043; 82570; 84443

== ENCOUNTER → 2025-06-03 11:34 | Outpatient (BNV) | payer MEDICARE, OTHER, SELFPAY | PROVIDERS: PCP Nurse Practitioner Family; Referring Provider Nurse Practitioner Family; Visit Provider Radiology Diagnostic Radiology | DX: N20.2 Calculus of kidney with calculus of ureter (principal); N28.1 Cyst of kidney, acquired | CPT/HCPCS: 76775 ==

== ENCOUNTER 2025-06-10 12:25 | Outpatient (REF) | payer MEDICARE, OTHER, SELFPAY ==
--- OUTSIDE RECORDS SUMMARY | 2025-06-10 13:13 | XMS_ITS | Clinical Summary ---
Author Organization [facility] Address [address] [place] [address] Phone Care Team Providers Care Shank Cutter Name Role Phone Cash Milan SUBSURFACE AUGMENTEE ELINT OPERATOR Primary Care Provider + Melvin Johnson MD Unavailable [phone] Social History Tobacco Use Types Packs/Day Years [...] topic Medical Devices Not on file Insurance [facility] EXTENSION MEDICARE SUPPLEMENT MEDICARE PART A & B [employer] MEDICARE SUPPLEMENT MEDICARE PART A & B [employer] EXTENSION MEDICARE SUPPLEMENT [facility] MEDICARE SUPPLEMENT [facility] EXTENSION MEDICARE SUPPLEMENT MEDICARE PART A & B [facility] EXTENSION MEDICARE SUPPLEMENT [employer] MEDICARE SUPPLEMENT [employer] MEDICARE SUPPLEMENT MEDICARE PART A & B [facility] EXTENSION MEDICARE SUPPLEMENT Care Teams Shank Cutter Relationship Specialty Start Date End Date Cash Milan NP [address] [place] [address] PCP - General Family Medicine 06/22/20 Melvin Johnson MD [address] [address] Trash Man Cardiology 06/22/20 Additional Source Comments The information contained in this document represents components of the legal health record. It is not the complete legal health record.[facility]
--- OUTSIDE RECORDS SUMMARY | 2025-06-10 13:13 | XMS_ITS | Clinical Summary ---
Author Organization [facility] Address [address] [place] [address] Care Team Providers Care Configuration Management Administrator Name Role Phone Cash Milan Primary Care Provider [phone] Allergies Active Allergy Reactions Criticality Noted Date [...] - 1-dose 75+ series) 2028 Care Teams Configuration Management Administrator Relationship Specialty Start Date End Date Cash Milan PCP - General 10/26/18
[2025-06-10 16:18] LABS: Alanine Aminotransferase 10 U/L (0-40); Albumin Level 3.9 g/dL (3.5-5.0); Alkaline Phosphatase 88 U/L (39-117); Anion Gap 14 (12-20); Aspartate Amino Transferase 26 U/L (5-37); Blood Urea Nitrogen 16 mg/dL (9-16); Calcium 9.2 mg/dL (8.4-10.2); Carbon Dioxide 24 mmol/L (22-29); Chloride 108 mmol/L (96-108); Estimated Glomerular Filt Rate 54; Potassium 4.6 mmol/L (3.3-5.1); Sodium 141 mmol/L (135-145); Total Protein 7.1 g/dL (6.5-8.0)
== END 2025-06-10 12:26 | disposition home or self-care (01) ==
LOC: HO.HMGCLDS 12:25
PROVIDERS: PCP Nurse Practitioner Family; Visit Provider Nurse Practitioner Family
DX: R79.89 Other specified abnormal findings of blood chemistry (principal)
CPT/HCPCS: 36415; 80053

== ENCOUNTER 2025-06-12 08:57 | Outpatient (REF) | payer MEDICARE, OTHER, SELFPAY ==
--- NOTE | ~2025-06-12 | XR_ITS ---
EXAMINATION: XR CHEST CLINICAL INFORMATION: R05.9 - Cough, unspecified COMPARISON: October 03, 2023. TECHNIQUE: 2 views of the chest were obtained. FINDINGS: Mild pulmonary reticular pattern. No consolidation pleural effusion or pneumothorax. Probable pleural thickening. Sternal wires. Vascular clips in the mediastinum likely CABG procedure. Cardiomediastinal silhouette size is normal. Calcified plaque thoracic aorta. Multilevel thoracic and lumbar spondylosis. XR/XR chest 2V IMPRESSION: Consider chronic interstitial lung disease without acute airspace disease. Stable chest. Electronically signed by: Alexis Garcia MD 06/12/2025 09:59 AM EDT
== END 2025-06-12 08:58 | disposition home or self-care (01) ==
LOC: HO.HMGCX 08:57
PROVIDERS: PCP Nurse Practitioner Family; Visit Provider Nurse Practitioner Family
DX: R05.3 Chronic cough (principal); E11.9 Type 2 diabetes mellitus without complications; K29.81 Duodenitis with bleeding; R13.10 Dysphagia, unspecified; R10.9 Unspecified abdominal pain; Z12.5 Encounter for screening for malignant neoplasm of prostate; Z79.4 Long term (current) use of insulin
CPT/HCPCS: 71046; 83036; 96127; 99212

== ENCOUNTER 2025-06-12 08:57 | Outpatient (AMB) | payer MEDICARE, OTHER, SELFPAY ==
[2025-06-12 09:10] VITALS: BP 138/70; PULSE 104; RESP 16; TEMP 36.9; O2SAT 97; BMI 30.1
--- NOTE | 2025-06-12 09:17 | A.OFFVIS_ITS ---
Intake Vital Signs 06/12/25 09:10 06/12/25 09:18 Height 6 ft Weight 222 lb BMI 30.1 30.1 BP 138/70 Blood Pressure Location Rt brachial Position Sitting Respiration 16 Pulse 104 H Pulse Source Pulse Oximeter Temp 98.5 F Temp Source Oral Pulse Oximetry (%) 97 Oxygen Delivery Method Room Air Intake Visit Reasons: issues Night Worker Required: No Accompanied by: Self / Same As Patient Allergies Penicillins (PCN) Allergy (Unknown, Verified 06/12/25 09:35) RASH glipizide Adverse Reaction (Unknown, Verified 06/12/25 09:35) Nausea/Loss of appetite metformin Adverse Reaction (Unknown, Verified 06/12/25 09:35) GI upset Medication List - Last Reviewed 06/12/25 by Blanca Smith MA albuterol sulfate 90 mcg/actuation (Ventolin HFA) 2 puffs inhalation Q6H PRN aspirin 81 mg PO Q2D atorvastatin 80 mg PO BEDTIME bisacodyl (Dulcolax (bisacodyl)) 10 mg (2 x 5 mg) PO BEDTIME famotidine (Pepcid) 20 mg PO BEDTIME flash glucose scanning reader (azeti [employer] Ash 14 Day [place]) As directed flash glucose sensor (FreeStyle Ash 14 Day Sensor kit) As directed fluorometholone 0.1% drps ophthalmic (eye) insulin aspart (niacinamide) 100 unit/mL (3 mL) (Fiasp FlexTouch U-100 Insulin) subcut insulin degludec (Tresiba FlexTouch U-200 insulin) 40 units subcut DAILY levothyroxine 37.5 mcg (1/2 x 75 mcg) PO DAILY lisinopril 20 mg PO DAILY 90 days nitroglycerin 0.4 mg sublingual Q5M PRN 10 days omeprazole 20 mg PO DAILY 60 days pen needle, diabetic (BD Tanya 2nd Gen Pen Needle) As directed polyethylene glycol 3350 (Miralax) 238 grams PO ONCE pyridoxine (vitamin B6) 100 mg PO DAILY tadalafil 5 mg PO DAILY Do you need a note to return to daycare/school/sports/work: No HPI HPI Comments History of Present Illness Details Chief Complaint The patient presents with a chronic cough and intermittent abdominal discomfort. History of Present Illness The patient is a 70-year-old male presenting with a generalized follow-up for ongoing health issues, including a chronic cough and gastrointestinal concerns. The patient reports a chronic cough that is primarily dry but occasionally associated with dysphagia, particularly when drinking liquids, leading to episodes of hacking cough. This symptom has been persistent, and a barium swallow is planned to further evaluate the cause. He further describes a intermittent dry cough, ? related to DEBBI. The patient has a history of peptic ulcer disease and reports intermittent abdominal discomfort. He denies any current fever or chills, although he experienced these symptoms a few weeks ago, which have since resolved. The patient has a history of kidney stones, with a recent ultrasound revealing a 1 cm calculus in the left ureteropelvic junction and mild hydronephrosis. He denies any current flank pain or pelvic discomfort, and there is no costovertebral angle tenderness noted bilaterally. Social History Health Maintenance Review of Systems - Respiratory: Reports chronic dry cough with episodes of dysphagia. Denies shortness of breath. - Gastrointestinal: Reports intermittent abdominal discomfort. Denies active blood in stool and constipation (resolved). - Constitutional: Denies current fever o r chills, though experienced these symptoms a few weeks ago. - Genitourinary: Denies flank pain or pe lvic discomfort. Physical Exam General: Cooperative, healthy appearing, comfortable, no acute distress and well developed Orientation: Patient oriented x3 Limitations: No limitations Head: Normal to inspection Ears: Hearing grossly normal bilaterally Nose: Normal external nose present Face and sinus: Normal facial exam Eyes: Appearance normal, both eyes and all related structures Neck: Normal visual inspection and Yes full ROM Respiratory: Normal respiratory effort and able to speak in complete sentences. Clear to auscultation bilaterally except for faint crackles at the right base gu: no CVA tenderness noted bilat Cardiovascular: Regular rate and rhythm. Normal S1 and S2 GI: Normal to inspection. Soft to palpation and nontender. Skin: No rashes or lesions noted Neuro: Patient oriented x3 Extremities: Normal to inspection Results - Imaging: Recent ultrasound showed a 1 cm calculus in the left ureteropelvic junction with mild hydronephrosis. Plan A barium swallow is planned to evaluate the cause of the chronic cough and associated dysphagia. A chest x-ray will be obtained to assess the respiratory status, especially considering the previous episodes of fever and the presence of crackles in the right lung base. The patient will undergo fasting labs to monitor his overall health status. Follow-up with urology is advised due to the presence of a kidney stone and mild hydronephrosis, as noted in the recent ultrasound. May consider switching DEBBI to ARB. Awaiting chest XR results Discussion Notes I discussed with the patient the need for a barium swallow to investigate the chronic cough and dysphagia. We also talked about obtaining a chest x-ray to evaluate his respiratory condition, given the previous fever and crackles noted in the right lung base. I advised him to follow up with urology for the kidney stone and mild hydronephrosis. Patient Instructions - Schedule a barium swallow test to eval uate the cough and swallowing issues. - Get a chest x-ray to check your lungs, especially since you had a fever recently. - Follow up with urology for your kidney stone and any related issues. - Plan to have fasting labs done soon to monitor your health. 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 Vaccination refused by patient Other and unspecified hyperlipidemia Type 2 diabetes mellitus with unspecified complications Atherosclerotic cardiovascular disease Adult hypothyroidism HTN (hypertension) Non-ST elevation MN (NSTEMI) Basal cell carcinoma Surgical History Hx of colonoscopy History of esophagogastroduodenoscopy (EGD) History of cardiac catheterization (~06/17/20) S/P CABG x 4 (~06/30/20) Family History Father Stroke Substance use disorder Mother Breast cancer HTN (hypertension) Social History Household Members: Spouse Housing: House Are you a primary managed care specialist to a significant other at home: No Do you presently have visiting nurse or other home services: No Alcohol intake: current Alcohol intake frequency: a few times a week Alcohol type: wine Patient Tobacco Use Status: Never used Tobacco e-Cigarette/Vaping Use: Never Used service: No Current occupational status: retired Cognitive needs: No Hearing needs: No Vision needs: No Questionnaire PHQ-9 Over the last 2 weeks, how often have you been bothered by any of the following problems? 1. Little interest or pleasure in doing things: several days 2. Feeling down, depressed, or hopeless: not at all 3. Trouble falling or staying asleep, or sleeping too much: not at all 4. Feeling tired or having little energy: several days 5. Poor appetite or overeating: several days 6. Feeling bad about yourself - or that you are a failure or have let yourself or your family down: not at all 7. Trouble concentrating on things, such as reading the newspaper or watching television: not at all 8. Moving or speaking so slowly that other people could have noticed. Or the opposite - being so fidgety or restless that you have been moving around a lot more than usual: not at all 9. Thoughts that you would be better off or of hurting yourself in some way: not at all Total score: 3 Depression Screening Interpretation: Negative Depression Screening Done: Yes 54337 - PHQ-9 Billing: Yes Source: Developed by Drs. J Luis Enriquez, Linda Vance, Lior Duran and colleagues, with an educational amina from [employer]. Physical Exam Vital Signs: Last Vital Signs Temp 98.5 F 06/12/25 09:10 Pulse 104 H 06/12/25 09:10 Resp 16 06/12/25 09:10 BP 138/70 06/12/25 09:10 Pulse Ox 97 06/12/25 09:10 Oxygen Delivery Method Room Air 06/12/25 09:10 BMI result Body Mass Index 30.1 Results AMB Hemoglobin A1c AMB Hemoglobin A1c 8.5 % Last Edit by Blanca Smith MA on 06/12/25 09:44 Assessment & Plan Assessment & Plan (1) Multiple duodenal ulcers: Code(s): K29.81 - Duodenitis with bleeding (2) Dysphagia: Code(s): R13.10 - Dysphagia, unspecified Plan: . (3) Cough: Code(s): R05.9 - Cough, unspecified Plan: . Plan . Orders: Orders Complete Blood Count Auto Diff Today E11.9 - Type 2 diabetes mellitus without complications, Z12.5 - Encounter for screening for malignant neoplasm of prostate Microalbumin, Random (w Creat) Today E11.9 - Type 2 diabetes mellitus without complications, Z12.5 - Encounter for screening for malignant neoplasm of prostate Comprehensive Dixon. Panel Fast Today K29.81 - Duodenitis with bleeding, R05.9 - Cough, unspecified, R13.10 - Dysphagia, unspecified Lipid Panel Today K29.81 - Duodenitis with bleeding, R05.9 - Cough, unspecified, R13.10 - Dysphagia, unspecified TSH reflex Free T4 Today K29.81 - Duodenitis with bleeding, R05.9 - Cough, unspecified, R13.10 - Dysphagia, unspecified Prostate Specific Antigen Scr Today E11.9 - Type 2 diabetes mellitus without complications, Z12.5 - Encounter for screening for malignant neoplasm of prostate AMB Hemoglobin A1c Today Z13.9 - Encounter for screening, unspecified FL Modified Barium Swallow Today R13.10 - Dysphagia, unspecified XR chest 2V Today R05.9 - Cough, unspecified UA CC w/rflx Micro + Cult Today K29.81 - Duodenitis with bleeding, R05.9 - Cough, unspecified, R13.10 - Dysphagia, unspecified Quality Reporting (2019) Depression/Bipolar (159/160/161/177) PHQ-9: Total score: 3 Coding Level of Care Code Est Pt Level 3 (25307) Diagnoses Multiple duodenal ulcers K29.81 Dysphagia R13.10 Cough R05.9 Additional Codes PHQ-9 - 98955 - PHQ-9 Billing: Yes ([id number])
[2025-06-12 09:18] VITALS: BMI 30.1
--- OUTSIDE RECORDS SUMMARY | 2025-06-12 09:24 | XMS_ITS | Clinical Summary ---
Author Organization [facility] Address [address] [place] [address] Phone Care Team Providers Care Manufacturing Engineering Director Name Role Phone Cash Milan ASSISTANT PROFESSOR OF THEATER Primary Care Provider + Melvin Johnson MD Unavailable [phone] Social History Tobacco Use Types Packs/Day Years [...] topic Medical Devices Not on file Insurance [facility] EXTENSION MEDICARE SUPPLEMENT MEDICARE PART A & B [employer] MEDICARE SUPPLEMENT MEDICARE PART A & B [employer] EXTENSION MEDICARE SUPPLEMENT [facility] MEDICARE SUPPLEMENT [facility] EXTENSION MEDICARE SUPPLEMENT MEDICARE PART A & B [facility] EXTENSION MEDICARE SUPPLEMENT [employer] MEDICARE SUPPLEMENT [employer] MEDICARE SUPPLEMENT MEDICARE PART A & B [facility] EXTENSION MEDICARE SUPPLEMENT Care Teams Manufacturing Engineering Director Relationship Specialty Start Date End Date Cash Milan NP [address] [address] PCP - General Family Medicine 06/22/20 Mlevin Johnson MD [address] [address] Returned Goods Receiving Clerk Cardiology 06/22/20 Additional Source Comments The information contained in this document represents components of the legal health record. It is not the complete legal health record.[facility]
--- OUTSIDE RECORDS SUMMARY | 2025-06-12 09:24 | XMS_ITS | Clinical Summary ---
Author Organization [facility] Address [address] [place] [address] Care Team Providers Care Precision Grinder Name Role Phone Cash Milan Primary Care Provider [phone] Allergies Active Allergy Reactions Criticality Noted Date [...] - 1-dose 75+ series) 2028 Care Teams Precision Grinder Relationship Specialty Start Date End Date Cash Milan PCP - General 10/26/18
== END 2025-06-12 09:45 | disposition home or self-care (01) ==
PROVIDERS: PCP Nurse Practitioner Family; Visit Provider Nurse Practitioner Family
DX: K29.81 Duodenitis with bleeding (principal); R13.10 Dysphagia, unspecified; R05.9 Cough, unspecified; Z13.9 Encounter for screening, unspecified

== ENCOUNTER → 2025-06-12 09:47 | Outpatient (BNV) | payer MEDICARE, OTHER, SELFPAY | PROVIDERS: PCP Nurse Practitioner Family; Visit Provider Radiology Diagnostic Radiology | DX: R05.9 Cough, unspecified (principal) | CPT/HCPCS: 71046 ==

== ENCOUNTER 2025-07-03 11:40 | Outpatient (AMB) | payer MEDICARE, OTHER, SELFPAY ==
--- NOTE | 2025-07-03 11:31 | A.OFFVIS_ITS ---
Intake Visit Reasons: 1y/US Intake Note: Patient presents today via telehealth for 1yr/US * Renal US 06/03 Meds-VITAMIN B6 Allergies to Antibiotic- Penicillins Blood Thinner- Aspirin Grey Roll Worker Required: No Accompanied by: Self / Same As Patient Allergies Penicillins (PCN) Allergy (Unknown, Verified 07/03/25 11:43) RASH glipizide Adverse Reaction (Unknown, Verified 07/03/25 11:43) Nausea/Loss of appetite metformin Adverse Reaction (Unknown, Verified 07/03/25 11:43) GI upset Medication List - Last Reconciled 07/03/25 by David Garrido MD albuterol sulfate 90 mcg/actuation (Ventolin HFA) 2 puffs inhalation Q6H PRN aspirin 81 mg PO Q2D atorvastatin 80 mg PO BEDTIME bisacodyl (Dulcolax (bisacodyl)) 10 mg (2 x 5 mg) PO BEDTIME famotidine (Pepcid) 20 mg PO BEDTIME flash glucose scanning reader (LEID ProductsStyle Ash 14 Day [place]) As directed flash glucose sensor (FreeStyle Ash 14 Day Sensor kit) As directed fluorometholone 0.1% drps ophthalmic (eye) insulin aspart (niacinamide) 100 unit/mL (3 mL) (Fiasp FlexTouch U-100 Insulin) subcut insulin degludec (Tresiba FlexTouch U-200 insulin) 40 units subcut DAILY levothyroxine 37.5 mcg (1/2 x 75 mcg) PO DAILY losartan 50 mg PO DAILY nitroglycerin 0.4 mg sublingual Q5M PRN 10 days omeprazole 20 mg PO DAILY 60 days pen needle, diabetic (BD Tanya 2nd Gen Pen Needle) As directed polyethylene glycol 3350 (Miralax) 238 grams PO ONCE pyridoxine (vitamin B6) 100 mg PO DAILY HPI Comments Details: 07/04/25 History of Present Illness The patient is a 70-year-old male presenting with nephrolithiasis. He has been followed for kidney stones, FU renal ultrasound which suggested the presence of an additional stone and movement of an existing stone. The patient reports left- sided pain and a history of blood in the urine. The ultrasound revealed a 1.4 cm stone in the lower pole and a 1 cm stone that is moving. Also left hydronephrosis. Results - Ultrasound: Left kidney 1.4 cm stone in the lower pole, 1 cm stone with left hydronephrosis Plan: CT stone protocol patient may need a lithotripsy procedure procedure if persistent left hydronephrosis and increased stone burden. PSA screening. Review of chart: 07/04/24--Bernard is here in fu for kidney stones, reviewed renal US 06/03/24-- bilateral kidney stones, small. He states he has passed stones in the past, and has been asymptomatic, 24 hr urine prior significant for hyperoxaluria, on Vit b6 100 mg. State levitra not working, will send daily cialis 5 mg. He has not need to use nitroglycerin in years. Denies voiding issues. PSA 05/27/24--0.80 ng/mL. Plan fu in 6 months will discuss ED symptoms on Cialis. Monitor kidney stones, repeat US in one year. 12/04/23--Bernard is a 67-year-old male who presents to the office for follow-up for kidney stones. PMH significant for DM and quadruple bypass done at [facility]. 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 He states since he was last evaluated, he passed about 3 stones. He is interested in meds for erectile dysfunction and has put in a call to his industrial gas production operator for clearance. He states he is voiding with a good flow, denies dysuria or gross hematuria. Discussed 24 hr urine - urine oxalate 55, urine sodium 209. Discussed low oxalate diet, pt states he eats alot of nuts and green leafy vegetables. Hyperoxaluria. Vit B6 100 mg. Monitor kidney stones. Will have nursing staff contact the pt's Global Risk Management Director regarding clearance for ED medication use. pt states levitra has worked for him in the past. PSA - 04/21/23-- 0.66 AUA symptom score: 3. PSA results ?10/17/22?0.60. PFSH Medical History Tubular adenoma of colon ACD (adult celiac disease) Hx of Saucedo's palsy Peripheral ulcerative keratitis Vaccination refused by patient Other and unspecified hyperlipidemia Type 2 diabetes mellitus with unspecified complications Atherosclerotic cardiovascular disease Adult hypothyroidism HTN (hypertension) Non-ST elevation ND (NSTEMI) Basal cell carcinoma Surgical History Hx of colonoscopy History of esophagogastroduodenoscopy (EGD) History of cardiac catheterization (~06/17/20) S/P CABG x 4 (~06/30/20) Family History Father Stroke Substance use disorder Mother Breast cancer HTN (hypertension) Social History Household Members: Spouse Housing: House Are you a primary caregivers non medical to a significant other at home: No Do you presently have visiting nurse or other home services: No Alcohol intake: current Alcohol intake frequency: a few times a week Alcohol type: wine Patient Tobacco Use Status: Never used Tobacco e-Cigarette/Vaping Use: Never Used service: No Current occupational status: retired Cognitive needs: No Hearing needs: No Vision needs: No Review of Systems Const All systems reviewed & are unremarkable except as noted in HPI and below Reports no additional complaints Eyes Reports no additional complaints ENT Reports no additional complaints Card Reports no additional complaints Resp Reports no additional complaints GI Reports no additional complaints Reports as per HPI Musc Reports no additional complaints Skin/Breast Reports system reviewed and no additional complaints, except as documented Neuro Reports no additional complaints Psych Reports no additional complaints Endo Reports no additional complaints Elan/Lymph Reports no additional complaints Aller/Immun Reports no additional complaints Telehealth Telehealth Telehealth Platform: Telephone Location of provider rendering services: practice address Location of patient: address on file Patient Identification confirmed using: Name, : Yes Telehealth method: voice only Patient verbally consented to treatment: Yes Patient verbally consented to billing insurance company: Yes Patient informed of any privacy concerns related to visit: Yes Minutes spent on Phone/Video with Pt.: 15 Results Reviewed Results Reviewed: 06/03/25/ CLINICAL HISTORY: N20.0 - Calculus of kidney US of kidneys Comparison: US/SR - US KIDNEY BILATERAL - 06/03/24 10:28 EDT Findings: Right kidney is normal in size, echogenicity and morphology, 11.1 cm in length. 5 mm simple cortical cyst in the upper pole, no calculus or hydronephrosis. Left kidney is slightly enlarged, 13.3 cm in length, previously 12.5 cm. Normal in echogenicity, mild hydronephrosis is new. 1.4 cm calyceal calculus in the lower pole, there is mildly shadowing echogenicity at the ureteropelvic junction 1 cm. Upper pole renal cyst without vascular flow is not well visualized, 3 cm, previously 2.3 cm. Limited color Doppler demonstrates unremarkable bilateral blood flow. Impression: 1. New mild left hydronephrosis due to 1 cm calculus at the UPJ. 2. Nonobstructing left nephrolithiasis. 3. Progressive left upper pole renal cyst, not well visualized. Date of Service: 06/03/24 US RETROPERITONEAL LIMITED (RENAL ONLY) CLINICAL INFORMATION: Calculus of kidney. COMPARISON: Renal ultrasound 06/20/2022. Ultrasound bladder 12/14/2021. CT abdomen and pelvis 04/04/2019. TECHNIQUE: Real-time imaging of the kidneys. Limited visualization due to bowel gas. FINDINGS: RIGHT KIDNEY: 11.4 x 5.2 x 6.1 cm (SAG x AP x TRV). No hydronephrosis. 0.4 cm upper pole and 0.3 cm lower pole calculi. Renal cortical thickness is normal. Limited visualization. 1.0 cm midpole cyst with benign features. There is no indication for follow-up imaging. LEFT KIDNEY: 12.5 x 5.7 x 6.9 cm (SAG x AP x TRV). . No hydronephrosis. 0.2 cm lower pole calculus. Renal cortical thickness is normal. 2.3 x 1.7 x 2.2 cm upper pole cyst is difficult to characterize due to limited visualization. Ultrasound of 06/20/2022 demonstrated a 2.2 x 2.1 x 1 point. There is no specific indication for additional imaging. IMPRESSION: Bilateral nephrolithiasis. No hydronephrosis Date of Service: 06/20/22 EXAMINATION: US RETROPERITONEAL LIMITED (RENAL ONLY) CLINICAL INFORMATION: Cyst of kidney, acquired. COMPARISON: US pelvis limited (bladder) 12/14/2021. US retroperitoneal limited (renal only) 11/11/2021. CT abdomen and pelvis 04/04/2019. TECHNIQUE: Real-time imaging of the kidneys.? FINDINGS: RIGHT KIDNEY: 11.1 x 5.6 x 5.6 cm (SAG x AP x TRV). The kidney is normal in size, contour, and echogenicity. Renal cortical thickness is normal. No focal parenchymal lesions or hydronephrosis. There is an echogenic nonobstructive stone in lower pole measuring 0.3 and 0.4 cm. LEFT KIDNEY: 11.1 x 6.0 x 5.2 cm (SAG x AP x TRV). The kidney is normal in size, contour, and echogenicity. Renal cortical thickness is normal. No hydronephrosis. There is anechoic cyst in the upper pole measuring 2.2 x 2.1 x 1.9 cm. There is a nonobstructive echogenic stone midpole measuring 0.4 cm and a lower pole measuring 0.5 cm and 0.4 cm. IMPRESSION: Bilateral nonobstructive echogenic renal calculi. No hydronephrosis.? Anechoic cyst upper pole measuring 2.2 cm. Assessment & Plan Assessment & Plan (1) Hydronephrosis, left: Code(s): N13.30 - Unspecified hydronephrosis Category: Medical (2) Kidney stone on left side: Code(s): N20.0 - Calculus of kidney Category: Medical (3) Elevated PSA: Code(s): R97.20 - Elevated prostate specific antigen [PSA] Category: Medical Plan Plan: CT stone protocol patient may need a lithotripsy procedure procedure if persistent left hydronephrosis and increased stone burden. PSA screening. Orders: Orders 2 CT kidney stone Today N13.30 - Unspecified hydronephrosis, N20.0 - Calculus of kidney PSA,Total (Free>4and<10) Today R97.20 - Elevated prostate specific antigen [PSA] Patient Instructions: The patient had an opportunity to ask questions regarding treatment plan. The patient expressed understanding and agreement with the above treatment plan. The patient is aware they should contact our office by phone for worsening of their current condition or the appearance of new symptoms. Compliance is encouraged with any medications and followup testing that is ordered. It is a privilege to be allowed the opportunity to participate in the urologic care of your patient. If you have any questions or concerns regarding treatment for the above conditions please do not hesitate to contact me. The office telephone contact is [phone]. This note is constructed in part using voice recognition software. While every effort has been made to ensure accuracy software performance engineer errors may have been included. Yours sincerely, David Garrido MD Scribe Plan - Not visible on output: Patient was informed and verbally consented to the use of an ambient scribe for clinic note documentation during this visit. Coding Level of Care Code Tele Est Pt Level 4 (16409) Diagnoses Hydronephrosis, left N13.30 Kidney stone on left side N20.0 Elevated PSA R97.20
--- OUTSIDE RECORDS SUMMARY | 2025-07-03 13:20 | XMS_ITS | Clinical Summary ---
Author Organization [facility] Address [address] [place] [id number] Care Team Providers Care Granite Chip Terrazzo Finisher Name Role Phone Cash Milan Primary Care Provider [phone] Allergies Active Allergy Reactions Criticality Noted Date [...] - 1-dose 75+ series) 2028 Care Teams Granite Chip Terrazzo Finisher Relationship Specialty Start Date End Date Cash Milan PCP - General 10/26/18
== END 2025-07-03 12:00 | disposition home or self-care (01) ==
LOC: HO.HUSH 11:40
PROVIDERS: PCP Nurse Practitioner Family; Visit Provider Urology
DX: N13.30 Unspecified hydronephrosis (principal); N20.0 Calculus of kidney; R97.20 Elevated prostate specific antigen [PSA]
CPT/HCPCS: 99214

== ENCOUNTER 2025-07-25 11:18 | Outpatient (AMB) | payer MEDICARE, OTHER, SELFPAY ==
--- NOTE | 2025-07-25 11:27 | A.OFFVIS_ITS ---
Vital Signs 07/25/25 11:32 Height 6 ft Weight 215 lb BMI 29.2 BP 158/78 H Blood Pressure Location Rt brachial Position Sitting Pulse 94 Pulse Source Pulse Oximeter Pulse Oximetry (%) 97 Oxygen Delivery Method Room Air Intake Visit Reasons: 2 mo Intake Note: ESTABLISHED PATIENT for fecal abn + GERD mgmt. CC; Pt denies any GI changes or new sx since last visit. Flanging Machine Operator Required: No Accompanied by: Self / Same As Patient Allergies Penicillins (PCN) Allergy (Unknown, Verified 07/25/25 11:27) RASH glipizide Adverse Reaction (Unknown, Verified 07/25/25 11:27) Nausea/Loss of appetite metformin Adverse Reaction (Unknown, Verified 07/25/25 11:27) GI upset HPI HPI 2 mo: Details: LAST VISIT: Multiple duodenal ulcers ACD (adult celiac disease) Tubular adenoma of colon GERD (gastroesophageal reflux disease) Plan Patient will continue omeprazole every morning half an hour before breakfast I will add sucralfate. Continues to have epigastric and upper abdominal discomfort postprandially. Patient will include fiber in his diet. May take fiber supplement with pre and probiotics. Low FODMAP diet discussed with patient. Patient was encouraged to avoid dietary triggers and late night snacking. Staying upright for minimum 3 hours after meals discussed with patient. Patient will follow-up in 2 months. Message sent to surgical schedulers to book upper endoscopy and colonoscopy for patient. Increase fluid intake and activity to promote better bowel motility. Continue gluten free diet. Both patient and his are agreeable to plan of care and verbalizes understanding of instructions. They were given the opportunity to ask questions and all questions answered. ? Thank you for allowing me to participate in his care New bisacodyl (Dulcolax (bisacodyl)) Start taking 2 tablet every night 7 days before the procedure and 1 day before procedure take 4 tablets at noon time followed by MiraLax prep 10 mg (2 x 5 mg) PO BEDTIME 16 tabs 0RF Z12.11 sucralfate 1 g PO BEDTIME 30 tabs 0RF R19.7 polyethylene glycol 3350 (Miralax) As directed by gastroenterology department at [facility] 238 grams PO ONCE 238 grams 0RF Z12.11 TODAY'S VISIT Patient is here today for follow-up. Patient reports that he has been feeling better since starting that omeprazole. Patient reports that since last visit he last 20 lb. His blood sugars are better now as well. Blood sugars anywhere be tween high 80s to 130s in the morning. Patient reports that his blood sugar used to been close to 200. Patient states that he was taking sucralfate at bedtime and that was causing his epigastric pain worse. Started taking famotidine, however after taking it for a week he felt dizzy and stop that. Patient reports that he is avoiding gluten. Diagnosed with celiac on upper endoscopy via biopsy. Patient reports that he has been feeling better. Denies any dyspepsia, dysphagia or odynophagia. Reports that he is moving his bowels better now. Patient reports that abdominal bloating experiences only occasionally depending on what he eats. Patient denies any other GI concerning symptoms. [facility] Medical History Tubular adenoma of colon ACD (adult celiac disease) Hx of Saucedo's palsy Peripheral ulcerative keratitis Vaccination refused by patient Other and unspecified hyperlipidemia Type 2 diabetes mellitus with unspecified complications Atherosclerotic cardiovascular disease Adult hypothyroidism HTN (hypertension) Non-ST elevation [place] (NSTEMI) Basal cell carcinoma Surgical History Hx of colonoscopy History of esophagogastroduodenoscopy (EGD) History of cardiac catheterization (~06/17/20) S/P CABG x 4 (~06/30/20) Family History Father Stroke Substance use disorder Mother Breast cancer HTN (hypertension) Social History Household Members: Spouse Housing: House Are you a primary medicare sales executive to a significant other at home: No Do you presently have visiting nurse or other home services: No Alcohol intake: current Alcohol intake frequency: a few times a week Alcohol type: wine Patient Tobacco Use Status: Never used Tobacco e-Cigarette/Vaping Use: Never Used service: No Current occupational status: retired Cognitive needs: No Hearing needs: No Vision needs: No Review of Systems Const Denies weight gain and Denies weight loss ENT Reports no additional complaints, Denies dysphagia and Denies odynophagia Card Reports no additional complaints Resp Reports no additional complaints GI Denies abdominal pain, Denies belching, Denies melena, Reports bloating (Occasional), Denies change in bowel habits, Denies dysphagia, Denies excessive flatus, Denies dyspepsia, Denies heartburn, Denies diarrhea, Denies loose stools, Denies nausea, Denies odynophagia and Denies vomiting Reports no additional complaints Musc Reports no additional complaints Neuro Reports no additional complaints Psych Reports no additional complaints Endo Reports no additional complaints Physical Exam Const General: healthy appearing and no acute distress Nutritional Appearance: obese Orientation/consciousness: patient oriented x3 Resp Effort & Inspection: normal respiratory effort, able to speak in complete sentences, no tracheal deviation and symmetric chest movement Auscultation: clear to auscultation bilaterally Cardio Rate: regular rate GI Inspection: Yes normal to inspection, No distended and Yes obesity Palpation (GI): Soft to palpation, not firm, nontender and No hepatosplenomegaly present Auscultation: normal bowel sounds General: Yes no CVA tenderness Back/Spine/Pelvis Back: no CVA tenderness Skin General skin exam: elasticity normal, turgor normal and dry skin Neuro General: patient oriented x3 Psych Appearance: grossly normal Mental Status: mental status grossly normal Assessment & Plan Assessment & Plan (1) Multiple duodenal ulcers: Code(s): K29.81 - Duodenitis with bleeding Category: Medical (2) Dysphagia: Code(s): R13.10 - Dysphagia, unspecified Category: Medical Qualifiers: Dysphagia type: esophageal phase Qualified Code(s): R13.19 - Other dysphagia (3) Cough: Code(s): R05.9 - Cough, unspecified Category: Medical Qualifiers: Cough type: chronic Qualified Code(s): R05.3 - Chronic cough (4) Gastroesophageal reflux disease: Code(s): K21.9 - Gastro-esophageal reflux disease without esophagitis Qualifiers: Esophagitis presence: esophagitis presence not specified Qualified Code(s): K21.9 - Gastro-esophageal reflux disease without esophagitis Plan Patient will continue taking omeprazole daily. Continue avoiding dietary triggers and late night snacking. Follow FODMAP diet. Celiac disease, follow gluten free diet. Health patient download gluten free scanner minal on his phone. Showed patient how to use it. Patient will follow-up in our office in 6 months, sooner on as needed basis. She he is agreeable to this plan and verbalizes understanding of instructions. He was given the opportunity to ask questions and all questions answered. Thank you for allowing me to participate in his care Medications: Discontinued bisacodyl (Dulcolax (bisacodyl)) Start taking 2 tablet every night 7 days before the procedure and 1 day before procedure take 4 tablets at noon time followed by MiraLax prep Discontinued Reason: Patient no longer taking 10 mg (2 x 5 mg) PO BEDTIME 16 tabs 0RF Z12.11 - Encounter for screening for malignant neoplasm of colon Coding Level of Care Code Est Pt Level 4 (28091) Complex EM visit Add On G2211 Diagnoses Multiple duodenal ulcers K29.81 Esophageal dysphagia R13.19 Dysphagia type: esophageal phase Chronic cough R05.3 Cough type: chronic Gastroesophageal reflux disease, unspecified whether esophagitis present K21.9 Esophagitis presence: esophagitis presence not specified Time Spent (min) 35 Comment 25 minutes spent with patient and additional 10 minutes spent reviewing his records
[2025-07-25 11:32] VITALS: BP 158/78; PULSE 94; O2SAT 97; BMI 29.2
--- OUTSIDE RECORDS SUMMARY | 2025-07-25 13:09 | XMS_ITS | Clinical Summary ---
Author Organization [facility] Address [address] [place] [address] Care Team Providers Care Surveillance Technician Name Role Phone Cash Milan Primary Care Provider [phone] Allergies Active Allergy Reactions Criticality Noted Date [...] - Weight 105.2 kg (232 lb) 10/22/2018 170 EST Height 180.3 cm (5' 11 ) 10/22/2018 1706 EST Body Mass Index 32.36 10/22/2018 1706 EST Plan of Treatment Health Maintenance Due Date Last Done Comments Hepatitis C Screen 1955 Fall Risk Screening 2018 COVID-19 Vaccine (2023- season) 2024 RSV Immunization ( o r 60+ Years) (1 - 1-dose 75+ series) 2028 Care Teams Surveillance Technician Relationship Specialty Start Date End Date Cash Milan PCP - General 10/26/18
--- OUTSIDE RECORDS SUMMARY | 2025-07-25 13:09 | XMS_ITS | Clinical Summary ---
Author Organization [facility] Address [address] [place] [address] Phone Care Team Providers Care Dimensional Inspector Name Role Phone Cash Milan WARDROBE CUSTODIAN Primary Care Provider + Melvin Johnson MD Unavailable [phone] Social History Tobacco Use Types Packs/Day Years [...] 2003 ZOSTER VACCINES (1 of 2) 2003 INFLUENZA VACCINE (#1) 2025 COVID-19 VACCINE (3 - 2024-2 6 season) 2025 02/24/2021, 02/03/2021 RSV VACCINE (1 - 1-dose [...] file Insurance MEDICARE PART A & B [facility] MEDICARE SUPPLEMENT MEDICARE PART A & B [employer] MEDICARE SUPPLEMENT MEDICARE PART A & B [employer] MEDICARE SUPPLEMENT [facility] MEDIC[facility]PPLEMENT [facility] MEDICARE SUPPLEMENT MEDICARE PART A & B [facility] MEDICARE SUPPLEMENT MEDICARE PART A & B [employer] MEDICARE SUPPLEMENT [employer] EXTENSION MEDICARE SUPPLEMENT [facility] MEDICARE SUPPLEMENT Care Teams Dimensional Inspector Relationship Specialty Start Date End Date Cash Milan NP [address] [place] [address] PCP - General Family Medicine 06/22/20 Melvin Johnson MD [address] [place] [id number] Animal Science Professor Cardiology 06/22/20 Additional Source Comments The information contained in this document represents components of the legal health record. It is not the complete legal health record.[facility]
== END 2025-07-25 11:49 | disposition home or self-care (01) ==
LOC: HO.HGI 11:19
PROVIDERS: PCP Nurse Practitioner Family; Visit Provider Nurse Practitioner Family
DX: K29.81 Duodenitis with bleeding (principal); R13.19 Other dysphagia; R05.3 Chronic cough; K21.9 Gastro-esophageal reflux disease without esophagitis
CPT/HCPCS: 99214; G2211

== ENCOUNTER → 2025-07-25 11:18 | Outpatient (BNVA) | payer MEDICARE, OTHER, SELFPAY | PROVIDERS: PCP Nurse Practitioner Family; Visit Provider Nurse Practitioner Family | DX: K29.81 Duodenitis with bleeding (principal); R13.19 Other dysphagia; R05.3 Chronic cough; K21.9 Gastro-esophageal reflux disease without esophagitis | CPT/HCPCS: 99212 ==

== ENCOUNTER 2025-08-05 15:46 | Outpatient (REF) | payer MEDICARE, OTHER, SELFPAY ==
--- NOTE | ~2025-08-05 | CT_ITS ---
EXAMINATION: CT ABDOMEN AND PELVIS WITHOUT CONTRAST CLINICAL INFORMATION: Hydronephrosis , nephrolithiasis COMPARISON: June 03, 2025 ultrasound and April 04, 2019 CT TECHNIQUE: Multidetector volumetric imaging was performed from the superior aspect of the liver through the pubic symphysis. Sagittal and coronal reformatted images were obtained on the technologist's workstation. This CT examination was performed using dose optimization techniques as appropriate, variously including the following: *Automated exposure control *Adjustment of mA and/or kV according to patient size (this includes techniques or standardized protocols for targeted exams where dose is matched to indication/reason for exam; i.e. extremities or head) *Use of iterative reconstruction technique FINDINGS: LUNG BASES: Reticular changes are present in the posterior lower lobes with minimal early honeycombing. There is a peripheral nodule in the posterolateral basilar left lower lobe measuring 7 mm, previously 8 mm. LIVER, GALLBLADDER, AND BILIARY TREE: The liver is normal in size, shape, and attenuation. No focal hepatic lesion or biliary ductal dilatation is present. The gallbladder is unremarkable with no evidence of radiopaque gallstones, gallbladder wall thickening, or obvious pericholecystic inflammatory changes. PANCREAS: Unremarkable. SPLEEN: Unremarkable. ADRENAL GLANDS: Unremarkable. KIDNEYS AND URETERS: There is vascular calcification in the medial mid right kidney. There is a 5 mm stone in the upper pole and 1 mm stone lower pole right kidney, nonobstructive. There is a 5 x 12 mm stone in the left ureterovesicular junction resulting in mild to moderate hydronephrosis. There are 2 adjacent stones in the lower pole left kidney measuring 9 and 14 mm BLADDER: Unremarkable aside from the left UVJ stone. GASTROINTESTINAL TRACT: Pseudodiverticula are present in the descending and sigmoid colon without wall thickening or fat stranding. The appendix is not well-demonstrated. ABDOMINAL WALL: Umbilical hernia contains fat, likely greater omentum, and hernia sac measures 4.4 cm diameter. Bilateral direct inguinal hernias, right greater than left, contains adipose tissue. LYMPH NODES: Normal. VASCULAR: Multiple calcifications are evident PELVIC VISCERA: Unremarkable. OSSEOUS STRUCTURES: Moderate facet arthropathy is present in the lumbar spine. Mild to moderate degenerative changes are present in the hips with osteophytes. There is narrowing of SI joints bilaterally. CT/CT kidney stone IMPRESSION: 5 x 12 mm left UVJ stone results in mild to moderate hydronephrosis. There are several nonobstructing stones remaining within both kidneys. Umbilical hernia contains fat. Bilateral direct inguinal hernias containing fat. Diverticulosis without evidence of infection. Stable subpleural nodule in the left lower lobe requires no further follow-up. Fleischner guidelines were followed. Electronically signed by: Dutch Silva MD 08/05/2025 04:25 PM EDT
--- OUTSIDE RECORDS SUMMARY | 2025-08-05 18:44 | XMS_ITS | Clinical Summary ---
Author Organization [facility] Address [address] [place] [address] Phone Care Team Providers Care Inspection Supervisor Name Role Phone Cash Milan MANAGER MISSION Primary Care Provider + Melvin Johnson MD Unavailable [phone] Social History Tobacco Use Types Packs/Day Years [...] file Insurance MEDICARE PART A & B Member Subscriber Plan / Payer (Ef fective 2018-Present) Name:Bernard Rosenbaum Member ID:[id number] Relation to Subscriber:Self Name:Bernard Rosenbaum Subscriber ID:[id number] Payer ID:[id number] Group ID:Not on file Type:Medicare Address: [employer] [facility] [employer] [facility] [address] [place] [address] [facility] EXTENSION MEDICARE SUPPLEMENT MEDICARE PART A & B [employer] MEDICARE SUPPLEMENT MEDICARE PART A & B [employer] [place] MEDICARE SUPPLEMENT [facility] MEDICARE SUPPLEMENT [facility] EXTENSION MEDICARE SUPPLEMENT MEDICARE PART A & B [facility] MEDICARE SUPPLEMENT MEDICARE PART A & B [employer] [place] MEDICARE SUPPLEMENT [employer] EXTENSION MEDICARE SUPPLEMENT [facility] EX[facility]ION MEDICARE SUPPLEMENT Care Teams Inspection Supervisor Relationship Specialty Start Date End Date Cash Milan NP [address] [place] [address] PCP - General Family Medicine 06/22/20 Melvin Johnson MD [address] [place] [id number] Senior Sales Consultant Cardiology 06/22/20 Additional Source Comments The information contained in this document represents components of the legal health record. It is not the complete legal health record.[facility]
--- OUTSIDE RECORDS SUMMARY | 2025-08-05 18:44 | XMS_ITS | Clinical Summary ---
Author Organization [facility] Address [address] [place] [address] Care Team Providers Care Tong Setter Name Role Phone Cash Milan Primary Care Provider [phone] Allergies Active Allergy Reactions Criticality Noted Date [...] - 1-dose 75+ series) 2028 Care Teams Tong Setter Relationship Specialty Start Date End Date Cash Milan PCP - General 10/26/18
== END 2025-08-05 15:47 | disposition home or self-care (01) ==
LOC: HO.CT 15:46
PROVIDERS: PCP Nurse Practitioner Family; Visit Provider Urology
DX: N13.30 Unspecified hydronephrosis (principal); N20.0 Calculus of kidney
CPT/HCPCS: 74176

== ENCOUNTER → 2025-08-05 15:49 | Outpatient (BNV) | payer MEDICARE, OTHER, SELFPAY | PROVIDERS: PCP Nurse Practitioner Family; Visit Provider Radiology Diagnostic Radiology | DX: K40.20 Bilateral inguinal hernia, without obstruction or gangrene, not specified as recurrent (principal); K57.30 Diverticulosis of large intestine without perforation or abscess without bleeding; R91.1 Solitary pulmonary nodule; N13.2 Hydronephrosis with renal and ureteral calculous obstruction; K42.9 Umbilical hernia without obstruction or gangrene; N20.0 Calculus of kidney | CPT/HCPCS: 74176 ==

== ENCOUNTER 2025-08-07 11:38 | Outpatient (AMB) | payer MEDICARE, OTHER, SELFPAY ==
--- NOTE | 2025-08-07 11:45 | A.OFFVIS_ITS ---
Intake Visit Reasons: CT scan results Intake Note: Patient presents today for CT results * 08/05 Abdomen/Pelvis CT Urology Meds-VITAMIN B6 Allergies to Antibiotic- Penicillins Blood Thinner- Aspirin PVR:0ml Bakeshop Cleaner Required: No Accompanied by: Self / Same As Patient Allergies Penicillins (PCN) Allergy (Unknown, Verified 08/07/25 11:51) RASH glipizide Adverse Reaction (Unknown, Verified 08/07/25 11:51) Nausea/Loss of appetite metformin Adverse Reaction (Unknown, Verified 08/07/25 11:51) GI upset HPI Comments Details: 08/07/25--Bernard is a 70-year-old followed for nephrolithiasis. He is here post CAT scan on 08/05/25 which notes bilateral nonobstructing kidney stones and a 12 mm left UVJ stone with hydronephrosis. History of Present Illness The patient is a 70-year-old male presenting with follow-up for nephrolithiasis and review of recent imaging results. The patient has a significant medical history including heart surgery five years ago. He states he had recent colonoscopy and endoscopy. The patient has a history of nephrolithiasis for approximately 35 years, with previous episodes of passing stones spontaneously. A recent computed tomography scan on August 05, 2025, revealed bilateral nonobstructing kidney stones and a 12 mm stone at the left ureterovesical junction causing hydronephrosis. The patient reported urinary urgency occurring every 15 minutes, which improved the following day. He has not yet started tamsulosin, which was prescribed to aid in stone passage. Results - Computed tomography scan on 08/05/25: Bilateral nonobstructing kidney stones, 12 mm left ureterovesical junction stone with hydronephrosis Plan 1. Nephrolithiasis - Schedule procedure to remove the left ureterovesical junction stone using laser lithotripsy and place a temporary stent. - Prescribed tamsulosin to facilitate stone passage. - Advise patient to drink plenty of water and use a strainer to check for stone passage. 07/04/25--The patient is a 70-year-old male presenting with nephrolithiasis. He has been followed for kidney stones, FU renal ultrasound which suggested the presence of an additional stone and movement of an existing stone. The patient reports left-sided pain and a history of blood in the urine. The ultrasound revealed a 1.4 cm stone in the lower pole and a 1 cm stone that is moving. Also left hydronephrosis. Results - Ultrasound: Left kidney 1.4 cm stone in the lower pole, 1 cm stone with left hydronephrosis Plan: CT stone protocol patient may need a lithotripsy procedure procedure if persistent left hydronephrosis and increased stone burden. PSA screening. 07/04/24--Bernard is here in fu for kidney stones, reviewed renal US 06/03/24-- bilateral kidney stones, small. He states he has passed stones in the past, and has been asymptomatic, 24 hr urine prior significant for hyperoxaluria, on Vit b6 100 mg. State levitra not working, will send daily cialis 5 mg. He has not need to use nitroglycerin in years. Denies voiding issues. PSA 05/27/24--0.80 ng/mL. Plan fu in 6 months will discuss ED symptoms on Cialis. Monitor kidney stones, repeat US in one year. 12/04/23--Bernard is a 67-year-old male who presents to the office for follow-up for kidney stones. PMH significant for DM and quadruple bypass done at [facility]. 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 He states since he was last evaluated, he passed about 3 stones. 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 He states he is voiding with a good flow, denies dysuria or gross hematuria. Discussed 24 hr urine - urine oxalate 55, urine sodium 209. Discussed low oxalate diet, pt states he eats alot of nuts and green leafy vegetables. Hyperoxaluria. Vit B6 100 mg. Monitor kidney stones. 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 pt states levitra has worked for him in the past. PSA - 04/21/23-- 0.66 AUA symptom score: 3. PSA results ?10/17/22?0.60. [facility] Medical History Tubular adenoma of colon ACD (adult celiac disease) Hx of Saucedo's palsy Peripheral ulcerative keratitis Vaccination refused by patient Other and unspecified hyperlipidemia Type 2 diabetes mellitus with unspecified complications Atherosclerotic cardiovascular disease Adult hypothyroidism HTN (hypertension) Non-ST elevation [place] (NSTEMI) Basal cell carcinoma Surgical History Hx of colonoscopy History of esophagogastroduodenoscopy (EGD) History of cardiac catheterization (~06/17/20) S/P CABG x 4 (~06/30/20) Family History Father Stroke Substance use disorder Mother Breast cancer HTN (hypertension) Social History Household Members: Spouse Housing: House Are you a primary managed care provider to a significant other at home: No Do you presently have visiting nurse or other home services: No Alcohol intake: current Alcohol intake frequency: a few times a week Alcohol type: wine Patient Tobacco Use Status: Never used Tobacco e-Cigarette/Vaping Use: Never Used service: No Current occupational status: retired Cognitive needs: No Hearing needs: No Vision needs: No Review of Systems Const All systems reviewed & are unremarkable except as noted in HPI and below Reports no additional complaints Eyes Reports no additional complaints ENT Reports no additional complaints Card Reports no additional complaints Resp Reports no additional complaints GI Reports no additional complaints Reports as per HPI Musc Reports no additional complaints Skin/Breast Reports system reviewed and no additional complaints, except as documented Neuro Reports no additional complaints Psych Reports no additional complaints Endo Reports no additional complaints Elan/Lymph Reports no additional complaints Aller/Immun Reports no additional complaints Office Procedures Post Void Residual Post Residual Void Post Void Residual (PVR): [id number] Void Residual by ultrasound Results Reviewed Results Reviewed: Date of Service: 08/05/25 Reason for Exam: N13.30 - Unspecified hydronephrosis EXAMINATION: CT ABDOMEN AND PELVIS WITHOUT CONTRAST CLINICAL INFORMATION: Hydronephrosis nephrolithiasis COMPARISON: June 03, 2025 ultrasound and April 04, 2019 CT TECHNIQUE: Multidetector volumetric imaging was performed from the superior aspect of the liver through the pubic symphysis. Sagittal and coronal reformatted images were obtained on the technologist's workstation. This CT examination was performed using dose optimization techniques as appropriate, variously including the following: *Automated exposure control *Adjustment of mA and/or kV according to patient size (this includes techniques or standardized protocols for targeted exams where dose is matched to indication/reason for exam; i.e. extremities or head) *Use of iterative reconstruction technique FINDINGS: LUNG BASES: Reticular changes are present in the posterior lower lobes with minimal early honeycombing. There is a peripheral nodule in the posterolateral basilar left lower lobe measuring 7 mm, previously 8 mm. LIVER, GALLBLADDER, AND BILIARY TREE: The liver is normal in size, shape, and attenuation. No focal hepatic lesion or biliary ductal dilatation is present. The gallbladder is unremarkable with no evidence of radiopaque gallstones, gallbladder wall thickening, or obvious pericholecystic inflammatory changes. PANCREAS: Unremarkable. SPLEEN: Unremarkable. ADRENAL GLANDS: Unremarkable. KIDNEYS AND URETERS: There is vascular calcification in the medial mid right kidney. There is a 5 mm stone in the upper pole and 1 mm stone lower pole right kidney, nonobstructive. There is a 5 x 12 mm stone in the left ureterovesicular junction resulting in mild to moderate hydronephrosis. There are 2 adjacent stones in the lower pole left kidney measuring 9 and 14 mm BLADDER: Unremarkable aside from the left UVJ stone. GASTROINTESTINAL TRACT: Pseudodiverticula are present in the descending and sigmoid colon without wall thickening or fat stranding. The appendix is not well-demonstrated. ABDOMINAL WALL: Umbilical hernia contains fat, likely greater omentum, and hernia sac measures 4.4 cm diameter. Bilateral direct inguinal hernias, right greater than left, contains adipose tissue. LYMPH NODES: Normal. VASCULAR: Multiple calcifications are evident PELVIC VISCERA: Unremarkable. OSSEOUS STRUCTURES: Moderate facet arthropathy is present in the lumbar spine. Mild to moderate degenerative changes are present in the hips with osteophytes. There is narrowing of SI joints bilaterally. IMPRESSION: 5 x 12 mm left UVJ stone results in mild to moderate hydronephrosis. There are several nonobstructing stones remaining within both kidneys. Umbilical hernia contains fat. Bilateral direct inguinal hernias containing fat. Diverticulosis without evidence of infection. Stable subpleural nodule in the left lower lobe requires no further follow-up. 06/03/25 CLINICAL HISTORY: N20.0 - Calculus of kidney US of kidneys Comparison: US/SR - US KIDNEY BILATERAL - 06/03/24 10:28 EDT Findings: Right kidney is normal in size, echogenicity and morphology, 11.1 cm in length. 5 mm simple cortical cyst in the upper pole, no calculus or hydronephrosis. Left kidney is slightly enlarged, 13.3 cm in length, previously 12.5 cm. Normal in echogenicity, mild hydronephrosis is new. 1.4 cm calyceal calculus in the lower pole, there is mildly shadowing echogenicity at the ureteropelvic junction 1 cm. Upper pole renal cyst without vascular flow is not well visualized, 3 cm, previously 2.3 cm. Limited color Doppler demonstrates unremarkable bilateral blood flow. Impression: 1. New mild left hydronephrosis due to 1 cm calculus at the UPJ. 2. Nonobstructing left nephrolithiasis. 3. Progressive left upper pole renal cyst, not well visualized. Date of Service: 06/03/24 US RETROPERITONEAL LIMITED (RENAL ONLY) CLINICAL INFORMATION: Calculus of kidney. COMPARISON: Renal ultrasound 06/20/2022. Ultrasound bladder 12/14/2021. CT abdomen and pelvis 04/04/2019. TECHNIQUE: Real-time imaging of the kidneys. Limited visualization due to bowel gas. FINDINGS: RIGHT KIDNEY: 11.4 x 5.2 x 6.1 cm (SAG x AP x TRV). No hydronephrosis. 0.4 cm upper pole and 0.3 cm lower pole calculi. Renal cortical thickness is normal. Limited visualization. 1.0 cm midpole cyst with benign features. There is no indication for follow-up imaging. LEFT KIDNEY: 12.5 x 5.7 x 6.9 cm (SAG x AP x TRV). . No hydronephrosis. 0.2 cm lower pole calculus. Renal cortical thickness is normal. 2.3 x 1.7 x 2.2 cm upper pole cyst is difficult to characterize due to limited visualization. Ultrasound of 06/20/2022 demonstrated a 2.2 x 2.1 x 1 point. There is no specific indication for additional imaging. IMPRESSION: Bilateral nephrolithiasis. No hydronephrosis Date of Service: 06/20/22 EXAMINATION: US RETROPERITONEAL LIMITED (RENAL ONLY) CLINICAL INFORMATION: Cyst of kidney, acquired. COMPARISON: US pelvis limited (bladder) 12/14/2021. US retroperitoneal limited (renal only) 11/11/2021. CT abdomen and pelvis 04/04/2019. TECHNIQUE: Real-time imaging of the kidneys.? FINDINGS: RIGHT KIDNEY: 11.1 x 5.6 x 5.6 cm (SAG x AP x TRV). The kidney is normal in size, contour, and echogenicity. Renal cortical thickness is normal. No focal parenchymal lesions or hydronephrosis. There is an echogenic nonobstructive stone in lower pole measuring 0.3 and 0.4 cm. LEFT KIDNEY: 11.1 x 6.0 x 5.2 cm (SAG x AP x TRV). The kidney is normal in size, contour, and echogenicity. Renal cortical thickness is normal. No hydronephrosis. There is anechoic cyst in the upper pole measuring 2.2 x 2.1 x 1.9 cm. There is a nonobstructive echogenic stone midpole measuring 0.4 cm and a lower pole measuring 0.5 cm and 0.4 cm. IMPRESSION: Bilateral nonobstructive echogenic renal calculi. No hydronephrosis.? Anechoic cyst upper pole measuring 2.2 cm. Assessment & Plan Assessment & Plan (1) Bilateral kidney stones: Code(s): N20.0 - Calculus of kidney Category: Medical (2) BPH (benign prostatic hyperplasia): Code(s): N40.0 - Benign prostatic hyperplasia without lower urinary tract symptoms Category: Medical (3) Left ureteral stone: Code(s): N20.1 - Calculus of ureter Category: Medical (4) Hydronephrosis, left: Code(s): N13.30 - Unspecified hydronephrosis Category: Medical Plan Patient is started tamsulosin. If he does pass the stone discussed cystoscopy laser lithotripsy ureteral stent placement Orders: Orders AMB Urinalysis Automated Today Z13.9 - Encounter for screening, unspecified AMB Post Void Residual by ultrasound Today N40.0 - Benign prostatic hyperplasia without lower urinary tract symptoms Patient Instructions: The patient had an opportunity to ask questions regarding treatment plan. The patient expressed understanding and agreement with the above treatment plan. The patient is aware they should contact our office by phone for worsening of their current condition or the appearance of new symptoms. Compliance is encouraged with any medications and followup testing that is ordered. It is a privilege to be allowed the opportunity to participate in the urologic care of your patient. If you have any questions or concerns regarding treatment for the above conditions please do not hesitate to contact me. The office telephone contact is [phone]. This note is constructed in part using voice recognition software. While every effort has been made to ensure accuracy animal daycare provider errors may have been included. Yours sincerely, David Garrido MD Scribe Plan - Not visible on output: Patient was informed and verbally consented to the use of an ambient scribe for clinic note documentation during this visit. Coding Level of Care Code Est Pt Level 4 (47750) Complex EM visit Add On G2211 Diagnoses Bilateral kidney stones N20.0 BPH (benign prostatic hyperplasia) N40.0 Left ureteral stone N20.1 Hydronephrosis, left N13.30 CPT Codes Post Residual Void - PVR CPT Code: [id number] Void Residual by ultrasound ([id number])
== END 2025-08-07 12:31 | disposition home or self-care (01) ==
LOC: HO.HUSH 11:39
PROVIDERS: PCP Nurse Practitioner Family; Visit Provider Urology
DX: N20.0 Calculus of kidney (principal); N40.0 Benign prostatic hyperplasia without lower urinary tract symptoms; N20.1 Calculus of ureter; N13.30 Unspecified hydronephrosis; Z13.9 Encounter for screening, unspecified
CPT/HCPCS: 99214; G2211

== ENCOUNTER → 2025-08-07 11:38 | Outpatient (BNVA) | payer MEDICARE, OTHER, SELFPAY | PROVIDERS: PCP Nurse Practitioner Family; Visit Provider Urology | DX: N20.0 Calculus of kidney (principal); N40.0 Benign prostatic hyperplasia without lower urinary tract symptoms; N20.1 Calculus of ureter; N13.30 Unspecified hydronephrosis; Z13.9 Encounter for screening, unspecified | CPT/HCPCS: 51798; 81003; 99212 ==

== ENCOUNTER 2025-09-11 10:32 | Outpatient (REF) | payer MEDICARE, OTHER, SELFPAY ==
--- NOTE | ~2025-09-11 | US_ITS ---
CLINICAL HISTORY: N20.0 - Calculus of kidney US Renal Comparison: 06/03/2025 Findings: Right kidney normal size and echotexture, 10.3 cm length. Left kidney normal size and echotexture, 10.8 cm length. There are bilateral renal bosniak 1 cysts, largest on the left measuring 2.4 x 2.4 x 2.2 cm. There are left renal cortical calculi. No hydronephrosis of either kidney. Normal color Doppler IMPRESSION: 1. No acute findings. This document has been electronically signed by: Shmuel Castellanos MD on 09/11/2025 21:26:59
--- OUTSIDE RECORDS SUMMARY | 2025-09-11 12:55 | XMS_ITS | Clinical Summary ---
Author Organization [facility] Address [address] [place] [address] Care Team Providers Care Sand Mixer Name Role Phone Cash Milan Primary Care Provider Allergies Active Allergy Reactions Criticality Noted Date [...] on file Sexual Orientation Not on file Last Filed Vital Signs Vital Sign Reading Time Taken Comments Blood Pressure 158/81 10/22/2018 194 EST Pulse 100 10/22/2018 194 EST Temperature [...] 1955 Fall Risk Screening 2018 COVID-19 Vaccine ( season) 2024 RSV Immunization ( o r 60+ Years) (dose 75+ series) 2028 Care Teams Sand Mixer Relationship Specialty Start Date End Date Cash Milan PCP - General 10/26/18
--- OUTSIDE RECORDS SUMMARY | 2025-09-11 12:55 | XMS_ITS | Clinical Summary ---
Author Organization [facility] Address [address] [place] [address] Phone Care Team Providers Care Hot Stick Worker Name Role Phone Cash Milan SURGERY SPECIALIST Primary Care Provider + Melvin Johnson MD Unavailable [phone] Social History Tobacco Use Types Packs/Day Years [...] on patient's age to complete this topic IPV VACCINES Aged Out No longer eligi ble based on patient's age to complete this topic MENINGOCOCCAL VACCINES (ACWY) Aged Out No longer eligible based on patient's age to complete this topic MENINGOCOCCAL VACCINES (B) Aged Out N o longer eligible based on patient's age to complete this topic Medical [place] [id number] [facility] SUPPLE[facility] [place] MED[place]ARE SUPPLEMENT [place] MEDICARE SUPPLEMENT [facility] MEDIC[facility] SU[facility] EXTENSION MEDICARE SUPPLEMENT MEDICARE PART A & B [facility] MEDICARE SUPPLEMENT [facility] MEDICARE SUPPLEMENT [facility] EXTENSION MEDICARE SUPPLEMENT MEDICARE PART A & B [facility] EXTENSION MEDICARE SUPPLEMENT Care Teams Hot Stick Worker Relationship Specialty Start Date End Date Cash Milan NP [address] [place] [address] PCP - General Family Medicine 06/22/20 Melvin Johnson MD [address] [address] [place] [address] Purchasing Supervisor Cardiology 06/22/20 Additional Source Comments The information contained in this document represents components of the legal health record. It is not the complete legal health record.[facility]
[2025-09-11 13:15] LABS: MANUAL DIFF FLAG NO
[2025-09-11 13:20] LABS: Hematocrit 46.2 % (42.0-52.0); Hemoglobin 15.2 g/dl (14.0-18.0); Imm Gran Abs Auto 0.06 X10*3/uL (0.00-0.03); Imm Gran Pct Auto 0.7 % (0.0-0.4); Lymphocytes Absolute Auto 2.7 X10*3/uL (1.2-4.9); Mean Corpuscular HGB Conc 32.9 g/dl (31.0-36.0); Mean Corpuscular Hemoglobin 29.4 pg (27.0-33.0); Mean Corpuscular Volume 89.4 fL (80.0-98.0); NRBC Abs Auto 0.000 X10*3/uL (0.0-0.012); NRBC Pct Auto 0.0 /100WBC (0.0-0.2); Platelet Count 321 X10*3/uL (160-400); Red Blood Count 5.17 X10*6/uL (4.60-5.80); White Blood Count 9.0 X10*3/uL (4.8-10.8)
[2025-09-11 13:33] LABS: Appearance Urine Clear; Glucose Urine UA Negative (Negative); PH 5.5 (5.0-9.0); Specific Gravity - Urine 1.015 (1.005-1.025); UMIC TRIGGER UACC YES
[2025-09-11 14:15] LABS: Alanine Aminotransferase 15 U/L (0-40); Albumin Level 4.3 g/dL (3.5-5.0); Alkaline Phosphatase 86 U/L (39-117); Anion Gap 14 (12-20); Aspartate Amino Transferase 25 U/L (5-37); Blood Urea Nitrogen 20 mg/dL (9-16); Calcium 9.3 mg/dL (8.4-10.2); Carbon Dioxide 25 mmol/L (22-29); Chloride 106 mmol/L (96-108); Cholesterol 186 mg/dL (<200); Estimated Glomerular Filt Rate 55; HDL Cholesterol 51 mg/dL (>40); Potassium 4.6 mmol/L (3.3-5.1); Sodium 140 mmol/L (135-145); Total Protein 7.3 g/dL (6.5-8.0); Triglycerides 60 mg/dL (<150)
[2025-09-11 14:23] LABS: Microalbum/Creatinine Ratio Ur 61.5 ug/mg cr (<30)
== END 2025-09-11 10:33 | disposition home or self-care (01) ==
LOC: HO.HMGCX 10:32
PROVIDERS: Absent Provider Nurse Practitioner Family; PCP Nurse Practitioner Family; Visit Provider Urology
DX: N13.2 Hydronephrosis with renal and ureteral calculous obstruction (principal); E11.9 Type 2 diabetes mellitus without complications; K29.81 Duodenitis with bleeding; R13.10 Dysphagia, unspecified; R05.9 Cough, unspecified; Z12.5 Encounter for screening for malignant neoplasm of prostate
CPT/HCPCS: 36415; 76775; 80053; 80061; 81001; 82043; 82570; 84153; 84443; 85025

== ENCOUNTER → 2025-09-11 10:35 | Outpatient (BNV) | payer MEDICARE, OTHER, SELFPAY | PROVIDERS: Absent Provider Nurse Practitioner Family; PCP Nurse Practitioner Family; Visit Provider Specialist | DX: N20.0 Calculus of kidney (principal) | CPT/HCPCS: 76775 ==

== ENCOUNTER 2025-10-28 09:01 | Outpatient (AMB) | payer MEDICARE, OTHER, SELFPAY ==
--- NOTE | 2025-10-28 09:07 | A.OFFVIS_ITS ---
Intake Vital Signs 10/28/25 09:09 Height 6 ft Weight 217 lb BMI 29.4 BP 150/70 H Blood Pressure Location Lt brachial Position Sitting Respiration 16 Pulse 101 H Pulse Source Pulse Oximeter Pulse Oximetry (%) 97 Oxygen Delivery Method Room Air Intake Visit Reasons: AWV G0438 Adjunct Latin Professor Required: No Accompanied by: Self / Same As Patient Allergies Penicillins (PCN) Allergy (Unknown, Verified 10/28/25 09:35) RASH glipizide Adverse Reaction (Unknown, Verified 10/28/25 09:35) Nausea/Loss of appetite metformin Adverse Reaction (Unknown, Verified 10/28/25 09:35) GI upset Medication List - Last Reconciled 10/28/25 by Cash Milan NURSERY WORKER- albuterol sulfate 90 mcg/actuation (Ventolin HFA) 2 puffs inhalation Q6H PRN aspirin 81 mg PO Q2D atorvastatin 80 mg PO BEDTIME bergamot extract (Collier Bergamot) 1,000 mg PO DAILY famotidine (Pepcid) 20 mg PO BEDTIME flash glucose scanning reader (Velo LabsStyle Ash 14 Day [place]) As directed flash glucose sensor (FreeStyle Ash 14 Day Sensor kit) As directed fluorometholone 0.1% drps ophthalmic (eye) insulin aspart (niacinamide) 100 unit/mL (3 mL) (Fiasp FlexTouch U-100 Insulin) subcut insulin degludec (Tresiba FlexTouch U-200 insulin) 40 units subcut DAILY levothyroxine 37.5 mcg (1/2 x 75 mcg) PO DAILY losartan 50 mg PO DAILY nitroglycerin 0.4 mg sublingual Q5M PRN 10 days omeprazole 20 mg PO DAILY 60 days pen needle, diabetic (BD Tanya 2nd Gen Pen Needle) As directed pyridoxine (vitamin B6) 100 mg PO DAILY tamsulosin 0.4 mg PO BEDTIME 90 days Do you need a note to return to daycare/school/sports/work: No HPI AWV G0438 HPI Details AWV: PPP and ccc in scan pile HPI Comments History of Present Illness Details Chief Complaint The patient presents for routine follow-up and management of his chronic conditions. History of Present Illness The patient is a 70 year old male presenting for chronic care management. He has a history of diabetes and is followed by an supervisor ski production, with his most recent A1c being 7.9, an improvement from his prior value of 8.4. He denies symptoms of neuropathy. For cardiovascular health, he sees a fuel oil truck driver and is on a statin at a dose of 80 mg. Collier bergamot was recently added to his regimen to help with cholesterol management. He had a tick bite on his left anterior thigh a couple of months ago, which healed well without any residual symptoms. For health maintenance, his eye exam is up to date and he is due for a colon screening, for which he has an appointment scheduled with gastroenterology in December. He also sees a jack of all trades for foot care and a urologist. Social History Health Maintenance The patient is due for a colon cancer screening and has a GI appointment scheduled in December. He will continue to follow up with his team of specialists, including podiatry, cardiology, and urology. Review of Systems - General: Reports doing well overall. - Cardiovascular: Denies chest pain or s hortness of breath. - Gastrointestinal: Denies nausea, vomit ing, or diarrhea. - Neurologic: Denies neuropathy. - Integumentary/Skin: He reported a tick bite a couple of months ago to his left anterior thigh which healed well without residual symptoms. - Psychiatric: Denies suicidal and homic idal ideation. Physical Exam General: Cooperative, healthy appearing, comfortable, no acute distress and well developed Orientation: Patient oriented x3 Limitations: No limitations Head: Normal to inspection Ears: Hearing grossly normal bilaterally Nose: Normal external nose present Face and sinus: Normal facial exam Eyes: Appearance normal, both eyes and all related structures Neck: Normal visual inspection and Yes full ROM Respiratory: Normal respiratory effort and able to speak in complete sentences. Clear to auscultation bilaterally Cardiovascular: Regular rate and rhythm. Normal S1 and S2 GI: Normal to inspection. Soft to palpation and nontender Skin: No rashes or lesions noted Neuro: Patient oriented x3 Extremities: Normal to inspection. Foot exam today, could feel with the tuning fork, 128, vibration. Positive sensation with the monofilament. Corns noted to mid plantar, lateral left foot, and also to the right foot, heel. Results - Labs: His most recent HbA1c was 7.9%, improved from a prior value of 8.4%. Plan 1. Diabetes Mellitus The patient's diabetes is improving, with his A1c having decreased to 7.9 from 8.4. He is followed by an supervisor ski production and has an upcoming follow-up appointment. No changes will be made to his insulin regimen at this time. 2. Hyperlipidemia The patient is on a statin at a dose of 80 mg. Collier bergamot was recently added as a supplement. Labs will be rechecked in two months to evaluate the effect on his cholesterol. 3. History Of Tick Bite The patient reported a tick bite a couple of months ago which healed well. Tick- borne disease testing will be ordered for his upcoming blood work. Discussion Notes I discussed the patient's diabetes management and noted the improvement in his A1c. We will continue his current insulin regimen without changes, as he will be seeing his supervisor ski production soon. Regarding his cholesterol, we will reassess his labs in two months to see if the recent addition of citrus bergamot to his statin therapy provides any benefit. I will add tick testing to his upcoming lab order due to his reported bite a few months ago. We also confirmed his upcoming appointment with GI in December for a colon screening. Patient Instructions - Continue your current medications, inc luding your insulin, without any changes. - Keep your upcoming appointment with yo supervisor ski production to manage your diabetes. - We will check your blood again in two months to see how the new citrus bergamot supplement is affecting your cholesterol. - When you go for your next blood test, we will also test for any illness related to the tick bite you had. - Please attend your scheduled colon scr eening appointment with the GI specialist in December. - Continue to see your other specialists as needed, including your jack of all trades, fuel oil truck driver, and urologist. [facility] Medical History Tubular adenoma of colon ACD (adult celiac disease) Hx of Saucedo's palsy Peripheral ulcerative keratitis Vaccination refused by patient Other and unspecified hyperlipidemia Type 2 diabetes mellitus with unspecified complications Atherosclerotic cardiovascular disease Adult hypothyroidism HTN (hypertension) Non-ST elevation [place] (NSTEMI) Basal cell carcinoma Surgical History Hx of colonoscopy History of esophagogastroduodenoscopy (EGD) History of cardiac catheterization (~06/17/20) S/P CABG x 4 (~06/30/20) Family History Father Stroke Substance use disorder Mother Breast cancer HTN (hypertension) Social History Household Members: Spouse Housing: House Are you a primary career center advisor to a significant other at home: No Do you presently have visiting nurse or other home services: No Alcohol intake: current Alcohol intake frequency: a few times a week Alcohol type: wine Patient Tobacco Use Status: Never used Tobacco e-Cigarette/Vaping Use: Never Used service: No Current occupational status: retired Cognitive needs: No Hearing needs: No Vision needs: No Questionnaire Medicare Wellness Checkup What [age] What gender do you identify with?: male During the past 4 weeks, how much have you been bothered by emotional problems such as feeling anxious, depressed, irritable, sad or downhearted, and blue?: moderately During the past 4 weeks, has your physical & emotional health limited your social activities with family, friends, neighbors, or groups?: slightly During the past 4 weeks, how much bodily pain have you generally had?: very mild pain During the past 4 weeks, was someone available to help you if you needed & wanted help?: yes, as much as I wanted During the past 4 weeks, what was the hardest physical activity you could do for at least 2 minutes?: moderate Can you get to places out of walking distance without help? (For eg., can you travel alone on buses, taxis or drive your car?): Yes Can you go shopping for groceries or clothes without someone's help?: Yes Can you prepare your own meals?: Yes Can you do your housework without help?: Yes Because of any health problems, do you need the help of another person with your personal care needs such as eating, bathing, dressing or getting around the house?: No Can you handle your own money without help?: Yes During the past 4 weeks, how would you rate your health in general?: good During the past 4 weeks how have things been going for you?: pretty well Are you having difficulties driving your car?: no Do you always fasten your seat belt when you are in a car?: yes, usually During past 4 weeks, have you been bothered by the following: never: Falling or dizzy when standing up, Sexual problems?, Trouble eating well?, Teeth or denture problems?, Problems using the telephone? and Tiredness or fatigue? Have you fallen 2 or more times in the past year?: No Are you afraid of falling?: No Are you a smoker?: no During the past 4 weeks, how many drinks of wine, beer, or other alcoholic beverages did you have?: no alcohol at all Do you exercise for about 20 minutes 3 or more times a week?: no, I usually do not exercise this much Have you been given information to help with the following?: yes: Hazards in your house that might hurt you? and yes: Keeping track of your medications? How often do you have trouble taking medicines the way you have been told to take them?: I always take medicine as prescribed How confident are you that you can control & manage most of your health problems?: very confident What is your race?: White Mini Mental State Exam (MMSE) Orientation What is the (year) (season) (date) (day) (month)?: year, season, date, day and month Where are we (state) (county) (town or city) (hospital) (floor)?: state, county, town or city, hospital/clinic and floor Registration Name of 3 unrelated objects clearly and slowly, then ask patient to repeat all 3 of them. (1st repeat determines score. Make sure they can repeat all three): object 1, object 2 and object 3 Attention & Calculation (CHOOSE ONE) Spell WORLD backwards (DLROW): 5 letters Recall Ask patient to repeat the 3 items from question #3.: object 1, object 2 and object 3 Language Show patient a wristwatch & ask what it is. Repeat for pencil.: watch and pencil Ask the patient to repeat the phrase 'No ifs, ands, or buts' after you.: correct Ask the patient to 'take a piece of paper with their right hand' 'fold paper in half' 'place paper on floor': take paper in right hand, fold paper in half and place paper on floor Print the sentence 'CLOSE YOUR EYES' on a piece. If patient actually closes eyes then score.: followed written direction Give patient a blank piece of paper & ask to write a sentence. Score if it contains a noun & verb.: sentence contains subject and verb Ask patient to copy figure of intersecting pentagons exactly. Score if all 10 angles & 2 intersects are included.: all 10 angles present & 2 are intersected Score Score: 30 Activity of Daily Living Bathing - sponge bath, tub bath or shower: receives no assistance (gets in/out by self, if usual bathing means Dressing - getting clothes from closets & drawers, including inner/outer garments & fasteners.: gets clothes & gets completely dressed without help Toileting - going to the 'toilet room' for urine/bowel elimination & cleaning self/arranging clothes: goes to toilet room, cleans self, arranges clothes without help Transfer: moves in & out of bed and chair without help (may use support object) Continence: controls urination/bowel movements completely by self Feeding: feeds self without help Total Score: 0 Information obtained from: patient Using telephone: independent Traveling: independent Shopping: independent Preparing meals: independent Housework: independent Taking medicine: independent Managing money: independent PHQ-9 Over the last 2 weeks, how often have you been bothered by any of the following problems? 1. Little interest or pleasure in doing things: not at all 2. Feeling down, depressed, or hopeless: not at all 3. Trouble falling or staying asleep, or sleeping too much: not at all 4. Feeling tired or having little energy: not at all 5. Poor appetite or overeating: several days 6. Feeling bad about yourself - or that you are a failure or have let yourself or your family down: not at all 7. Trouble concentrating on things, such as reading the newspaper or watching television: not at all 8. Moving or speaking so slowly that other people could have noticed. Or the opposite - being so fidgety or restless that you have been moving around a lot m ore than usual: not at all 9. Thoughts that you would be better off or of hurting yourself in some way: not at all Total score: 1 Depression Screening Interpretation: Negative Depression Screening Done: Yes 21470 - PHQ-9 Billing: Yes Source: Developed by Drs. J Luis Enriquez, Linda VanceLior and colleagues, with an educational amina from [employer]. Physical Exam Neuro Other: passed whisper test, able to tandem walk, neg rhomberg, able to stand from seated position Office Procedures Diabetic Foot Exam G9226 - Diabetic Foot Exam (+ sensation with use of tuning fork 128 and monofilament bilat. corns noted to left and right foot (as described under PE)) Results AMB Hemoglobin A1c AMB Hemoglobin A1c 7.9 % Last Edit by Blanca Smith MA on 10/28/25 09:20 Assessment & Plan Assessment & Plan (1) Hearing loss: Code(s): H91.90 - Unspecified hearing loss, unspecified ear (2) Diabetes: Code(s): E11.9 - Type 2 diabetes mellitus without complications (3) Encounter for subsequent annual wellness visit (AWV) in Medicare patient: Code(s): Z00.00 - Encounter for general adult medical examination without abnormal findings (4) Tick bite: Code(s): W57.XXXA - Bitten or stung by nonvenomous insect and other nonvenomous arthropods, initial encounter Plan . Orders: Orders AMB Hemoglobin A1c Today E11.8 - Type 2 diabetes mellitus with unspecified complications Complete Blood Count Auto Diff Today E11.9 - Type 2 diabetes mellitus without complications TSH reflex Free T4 Today E11.9 - Type 2 diabetes mellitus without complications Lipid Panel Today E11.9 - Type 2 diabetes mellitus without complications Tick-borne Disease Molecular Today W57.XXXA - Bitten or stung by nonvenomous insect and other nonvenomous arthropods, initial encounter Lyme IgG/IgM w/reflex to WB Today W57.XXXA - Bitten or stung by nonvenomous insect and other nonvenomous arthropods, initial encounter Comprehensive [place]. Panel Fast Today E11.9 - Type 2 diabetes mellitus without complications UA CC w/rflx Micro + Cult Today E11.9 - Type 2 diabetes mellitus without complications Referrals Speech and Hearing Referral H91.90 - Unspecified hearing loss, unspecified ear Quality Reporting (2019) Depression/Bipolar (159/160/161/177) PHQ-9: Total score: 1 Coding Level of Care Code Medicare Subsequent (G0439) Est Pt Level 3 (39730) Diagnoses Hearing loss H91.90 Diabetes E11.9 Encounter for subsequent annual wellness visit (AWV) in Medicare patient Z00.00 Tick bite W57.XXXA CPT Codes Advance Care Planning - Time spent: 16-45 minutes ([id number]) Diabetic Foot Exam - CPT: G9226 - Diabetic Foot Exam ([id number]) Additional Codes PHQ-9 - 23937 - PHQ-9 Billing: Yes ([id number]) Advance Care Planning Forms completed: Health Care Proxy (went over importance of form, pt will have finished at home, i signed as a witness), MOLST and Living will (recommended gettign this done) Time spent: 16-45 minutes Actual minutes spent: 16
[2025-10-28 09:09] VITALS: BP 150/70; PULSE 101; RESP 16; O2SAT 97; BMI 29.4
--- OUTSIDE RECORDS SUMMARY | 2025-10-28 11:11 | XMS_ITS | Clinical Summary ---
Author Organization [facility] Address [address] [place] [id number] Phone Care Team Providers Care Household Personal Assistant Name Role Phone Cash Milan HEEL PAINTER Primary Care Provider + Melvin Johnson MD Unavailable [phone] Social History Tobacco Use Types Packs/Day Years [...] file Insurance MEDICARE PART A & B [facility] MEDICARE SUPPLEMENT MEDICARE PART A & B [employer] MEDICARE SUPPLEMENT MEDICARE PART A & B [employer] MEDICARE SUPPLEMENT [facility] MEDICARE SUPPLEMENT [facility] MEDICARE SUPPLEMENT MEDICARE PART A & B [facility] MEDICARE SUPPLEMENT MEDICARE PART A & B [employer] MEDICARE SUPPLEMENT [employer] MEDICARE SUPPLEMENT [facility] [employer] MEDICARE SUPPLEMENT Care Teams Household Personal Assistant Relationship Specialty Start Date End Date Cash Milan NP [address] [place] [address] PCP - General Family Medicine 06/22/20 Melvin Johnson MD [address] [place] [phone] Claims Configuration Analyst Cardiology 06/22/20 Additional Source Comments The information contained in this document represents components of the legal health record. It is not the complete legal health record.[facility]
--- OUTSIDE RECORDS SUMMARY | 2025-10-28 11:11 | XMS_ITS | Clinical Summary ---
Author Organization [facility] Address [address] [place] [id number] Care Team Providers Care Inbound Call Center Representative Name Role Phone Cash Milan Primary Care Provider [phone] Allergies Active Allergy Reactions Criticality Noted Date [...] 1955 Fall Risk Screening 2018 COVID-19 Vaccine (2024- season) 2025 RSV Immunization ( o r 60+ Years) (dose 75+ series) 2028 Care Teams Inbound Call Center Representative Relationship Specialty Start Date End Date Cash Milan PCP - General 10/26/18
== END 2025-10-28 09:36 | disposition home or self-care (01) ==
PROVIDERS: PCP Nurse Practitioner Family; Visit Provider Nurse Practitioner Family
DX: Z00.00 Encounter for general adult medical examination without abnormal findings (principal); E11.69 Type 2 diabetes mellitus with other specified complication; E78.5 Hyperlipidemia, unspecified; H91.90 Unspecified hearing loss, unspecified ear; W57.XXXA Bitten or stung by nonvenomous insect and other nonvenomous arthropods, initial encounter

== ENCOUNTER → 2025-10-28 09:01 | Outpatient (BNVA) | payer MEDICARE, OTHER, SELFPAY | PROVIDERS: PCP Nurse Practitioner Family; Visit Provider Nurse Practitioner Family | DX: Z00.01 Encounter for general adult medical examination with abnormal findings (principal); E11.628 Type 2 diabetes mellitus with other skin complications; L84 Corns and callosities; E78.00 Pure hypercholesterolemia, unspecified; H91.90 Unspecified hearing loss, unspecified ear; W57.XXXA Bitten or stung by nonvenomous insect and other nonvenomous arthropods, initial encounter; Z13.31 Encounter for screening for depression | CPT/HCPCS: 83036; 96127; 99497 ==